=== PATIENT | male | born 1955 | race Caucasian/White ===

== ENCOUNTER 2018-01-19 09:42 | Emergency (ER) | payer OTHER ==
--- NOTE | 2018-01-19 11:03 | RAD REPORT ---
EXAM DESCRIPTION: VAS - Extremity Venous Uni Ltd - 01/19/2018 10:33 am CLINICAL HISTORY: Pain;Smash injury Leg swelling and edema. COMPARISON: EXT VENOUS UNI LTD dated 01/02/2015 FINDINGS: Right lower extremity venous system was interrogated with Doppler technique. Normal flow, compressibility and augmentation was noted. There is no DVT present.3.9 x 0.5 cm fluid collection not ed in the anterior right foot. IMPRESSION: No evidence of right lower extremity deep venous thrombosis.
--- NOTE | 2018-01-19 12:27 | RAD REPORT ---
EXAM DESCRIPTION: RAD - Foot Right 3 View - 01/19/2018 12:13 pm CLINICAL HISTORY: Smash injury;Pain COMPARISON: Foot Right 3 View dated 03/24/2013; Foot Right 3 View dated 02/19/2013 FINDINGS: Pes planus deformity is identified. Evidence of bony fusion between the talus and calcaneu s is seen. Moderate soft tissue swelling is seen along the dorsum of the forefoot without evidence of fracture.
--- NOTE | 2018-01-19 12:36 | EDPHYS ---
Physician Documentation [facility] Name: Hosea Manriquez Age: 62 yrs Sex: Male : 1955 Arrival Date: 01/19/2018 Time: 09:44 Bed 6 Private MD: Quentin Paz ED Physician Osvaldo Echols HPI: 01/19 17:14 This 62 yrs old Male presents to ER via Ambulatory with complaints of Foot kdr Injury. 17:16 The patient presents with a contusion, decreased range of motion, a deformity, an kdr injury, pain, that is acute, swelling, tenderness. The complaints affect the right foot. Context: The problem was sustained at home, resulted from a heavy object falling, Car battery about 12 inches. Onset: The symptoms/episode began/occurred acutely, yesterday. Modifying factors: The symptoms are alleviated by nothing, the symptoms are aggravated by weight bearing. Associated signs and symptoms: The patient has no apparent associated signs or symptoms. Severity of symptoms: At their worst the symptoms were mild, in the emergency department the symptoms are unchanged. The patient has not experienced similar symptoms in the past. The patient has not recently seen a physician. Historical: - Allergies: 09:48 Benadryl; sg 09:48 PENICILLINS; sg 09:48 Codeine; sg - PMHx: 09:52 Hypertension; Polio; High Cholesterol; sg - PSHx: 09:48 Knee surgery; foot surgery; sg - Immunization history:: Adult Immunizations up to date. - Social history:: Smoking status: Patient/guardian denies using tobacco. - Ebola Screening: : Patient negative for fever greater than or equal to 101.5 degrees Fahrenheit, and additional compatible Ebola Virus Disease symptoms Patient denies exposure to infectious person Patient denies travel to an Ebola-affected area in the 21 days before illness onset No symptoms or risks identified at this time. ROS: 17:16 MS/extremity: Positive for contusion, decreased range of motion, pain, swelling, kdr tenderness, warmth. 17:16 Constitutional: Negative for fever, chills, and weight loss, Eyes: Negative for injury, pain, redness, and discharge, Neck: Negative for injury, pain, and swelling. 17:16 MS/extremity: Positive for decreased range of motion, pain, swelling, tenderness, of the dorsum of right foot. Exam: 17:16 Constitutional: This is a well developed, well nourished patient who is awake, alert, kdr and in no acute distress. Head/Face: Normocephalic, atraumatic. Eyes: Pupils equal round and reactive to light, extra-ocular motions intact. Lids and lashes normal. Conjunctiva and sclera are non-icteric and not injected. Cornea within normal limits. Periorbital areas with no swelling, redness, or edema. 17:16 Musculoskeletal/extremity: Extremities: grossly normal except: noted in the dorsum of right foot: contusion, decreased ROM, pain, swelling, tenderness. Vital Signs: 09:51 BP 142 / 80; Pulse 80; Resp 17 S; Pulse Ox 98% on R/A; Weight 61.23 kg; Height 5 ft. 1 sg in. (154.94 cm); Pain 4/10; 09:51 Body Mass Index 25.51 (61.23 kg, 154.94 cm) sg MDM: 12:36 Patient medically screened. kdr 17:16 Data reviewed: vital signs, nurses notes, radiologic studies. Counseling: I had a kdr detailed discussion with the patient and/or guardian regarding: the historical points, exam findings, and any diagnostic results supporting the discharge/admit diagnosis, radiology results, the need for outpatient follow up. 01/19 09:57 Order name: XRAY Foot RIGHT 3 View; Complete Time: 12:35 sg 01/19 09:57 Order name: US Extremity Venous Unilateral Ltd; Complete Time: 11:10 sg Administered Medications: No medications were administered Disposition: 01/19/18 12:36 Discharged to Home. Impression: Pain in left foot, Pain in left ankle and joints of left foot. - Condition is Stable. - Discharge Instructions: Musculoskeletal Pain, Foot Contusion, [id number], Ankle Pain. - Medication Reconciliation Form, Thank You Letter form. - Follow up: Quentin Paz MD; When: 2 - 3 days; Reason: If symptoms return, Further diagnostic work-up, Recheck today's complaints, Continuance of care, Re-evaluation by your physician. - Problem is an ongoing problem. - Symptoms are unchanged. Signatures: Dispatcher [employer] EDMS Pito Romero RN RN sg Rittger, Osvaldo, MD MD kdr Mick, Chuy, RN RN ae1 Corrections: (The following items were deleted from the chart) 12:47 12:36 01/19/2018 12:36 Discharged to Home. Impression: Pain in left foot; Pain in left ae1 ankle and joints of left foot. Condition is Stable. Forms are Medication Reconciliation Form, Thank You Letter, Antibiotic Education, Prescription Opioid Use. Follow up: Quentin Paz; When: 2 - 3 days; Reason: If symptoms return, Further diagnostic work-up, Recheck today's complaints, Continuance of care, Re-evaluation by your physician. Problem is an ongoing problem. Symptoms are unchanged. kdr
--- NOTE | 2018-01-19 12:36 | ER ---
Nurse's Notes [facility] Name: Hosea Manriquez Age: 62 yrs Sex: Male : 1955 Arrival Date: 01/19/2018 Time: 09:44 Bed 6 Private MD: Quentin Paz Diagnosis: Pain in left foot;Pain in left ankle and joints of left foot Presentation: 01/19 09:48 Presenting complaint: Patient states: I dropped a car battery on the side R foot sg yesterday, then drove for 7 hrs straight to a job site. My right back leg and right calf have had some redness and swelling with a little pain now. Transition of care: patient was not received from another setting of care. Onset of symptoms was January 19, 2018. Risk Assessment: Do you want to hurt yourself or someone else? Patient reports no desire to harm self or others. Initial Sepsis Screen: Does the patient meet any 2 criteria? No. Patient's initial sepsis screen is negative. Does the patient have a suspected source of infection? No. Patient's initial sepsis screen is negative. Care prior to arrival: None. 09:48 Method Of Arrival: Ambulatory sg 09:48 Acuity: SABAS 3 sg Triage Assessment: 10:08 General: Appears in no apparent distress. comfortable, well groomed, well developed, sg well nourished, Behavior is calm, cooperative, appropriate for age. Pain: Complains of pain in right foot and right leg. Musculoskeletal: Circulation, motion, and sensation intact. Range of motion: intact in right knee and right ankle Swelling present in right foot and right leg. Historical: - Allergies: 09:48 Benadryl; sg 09:48 PENICILLINS; sg 09:48 Codeine; sg - PMHx: 09:52 Hypertension; Polio; High Cholesterol; sg - PSHx: 09:48 Knee surgery; foot surgery; sg - Immunization history:: Adult Immunizations up to date. - Social history:: Smoking status: Patient/guardian denies using tobacco. - Ebola Screening: : Patient negative for fever greater than or equal to 101.5 degrees Fahrenheit, and additional compatible Ebola Virus Disease symptoms Patient denies exposure to infectious person Patient denies travel to an Ebola-affected area in the 21 days before illness onset No symptoms or risks identified at this time. Screenin:59 Abuse screen: Denies threats or abuse. Nutritional screening: No deficits noted. ae1 Tuberculosis screening: No symptoms or risk factors identified. Fall Risk None identified. Assessment: 10:52 Reassessment: pt remains in radiology at this time. sg 11:15 Reassessment: Radiology at bedside obtaining imaging. General: Appears in no apparent ae1 distress. comfortable, Behavior is calm, cooperative. Pain: Complains of pain in dorsum of right foot. Neuro: Level of Consciousness is awake, alert, obeys commands, Oriented to person, place, time, situation. Cardiovascular: Patient's skin is warm and dry. Respiratory: Airway is patent Respiratory effort is even, unlabored, Respiratory pattern is regular, symmetrical. GI: No signs and/or symptoms were reported involving the gastrointestinal system. : No signs and/or symptoms were reported regarding the genitourinary system. EENT: wears glasses. . Derm: Derm: Skin is pink, warm \T\ dry. Musculoskeletal: Swelling present in dorsum of right foot mild redness. 11:58 Reassessment: Patient appears in no apparent distress at this time. Patient and/or ae1 family updated on plan of care and expected duration. Pain level reassessed. Vital Signs: 09:51 BP 142 / 80; Pulse 80; Resp 17 S; Pulse Ox 98% on R/A; Weight 61.23 kg; Height 5 ft. 1 sg in. (154.94 cm); Pain 4/10; 09:51 Body Mass Index 25.51 (61.23 kg, 154.94 cm) ED Course: 09:44 Patient arrived in ED. sb2 09:44 Quentin Paz MD is Private Physician. sb2 09:47 Arm band placed on. sg 09:47 Bed in low position. Call light in reach. Side rails up X2. newscast producer on. Pulse ae1 ox on. NIBP on. 09:51 Triage completed. sg 09:55 Osvaldo Echols MD is Attending Physician. kdr 10:33 US Extremity Venous Unilateral Ltd In Process Unspecified. EDMS 11:02 Chuy Barton, KIRA is Primary Nurse. ae1 12:13 XRAY Foot RIGHT 3 View In Process Unspecified. EDMS 12:35 Quentin Paz MD is Referral Physician. kdr Administered Medications: No medications were administered Outcome: 12:36 Discharge ordered by . kdr 12:47 Patient left the ED. ae1 Signatures: Dispatcher [employer] EDPito Olguin RN Osvaldo Vazquez MD MD kdr Elliott, Andrea, RN RN ae1 Janine Patten sb2
== END 2018-01-19 12:47 | disposition home or self-care (01) ==
LOC: ER 09:42
DX: M25.571 Pain in right ankle and joints of right foot (principal); I10 Essential (primary) hypertension; Z88.0 Allergy status to penicillin; Z88.5 Allergy status to narcotic agent; Z88.8 Allergy status to other drugs, medicaments and biological substances
CPT/HCPCS: 93971; 99284

== ENCOUNTER 2018-02-17 10:54 | Emergency (ER) | payer OTHER ==
--- NOTE | 2018-02-17 12:53 | RAD REPORT ---
EXAM DESCRIPTION: RAD - Knee Left 3 View - 02/17/2018 12:44 pm CLINICAL HISTORY: PAIN Fall COMPARISON: No comparisons FINDINGS: Oblique fracture through the proximal tibial metaphysis is seen. A lucent fracture compone nt is also seen extending in a vertical fashion to the tibial plateau. Small suprapatellar joint effu stephen is present. IMPRESSION: Proximal tibial fractures.
[2018-02-17 13:35] LABS: Absolute Monocytes 0.9 K/uL (0.1-1.3); Absolute Neutrophil 11.6 K/uL (1.8-8.0); Basophils % 0.3 % (0-1.3); Eosinophils % 0.3 % (0-4.4); Hematocrit 42.9 % (39.6-49.0); Lymphocytes % 7.3 % (15.3-44.8); MCH 29.7 pg (27.0-35.0); MCV 86.8 fL (80-100); MPV 8.1 fL (7.6-11.3); Monocytes % 6.8 % (3.3-12.3); RBC Red Blood Cell Count 4.94 M/uL (4.33-5.43)
[2018-02-17 13:46] LABS: Protime INR 0.96
--- NOTE | 2018-02-17 13:46 | RAD REPORT ---
EXAM DESCRIPTION: RAD - Chest Single View - 02/17/2018 1:40 pm CLINICAL HISTORY: preoperative Chest pain. Fall COMPARISON: CHEST PA AND LAT 2 VIEW dated 09/23/2013; CHEST SINGLE VIEW dated 08/20/2010 FINDINGS: Portable technique limits examination quality. The lungs are grossly clear. The heart is normal in size. No displaced fractures.Prominent scoliosis of the thoracic spine with concavity to the left. Hardware plate is present cervical spine. IMPRESSION: No acute intrathoracic process suspected.
[2018-02-17 13:55] LABS: ALT/SGPT 24 U/L (12-78); AST/SGOT 19 U/L (15-37); Albumin 3.8 g/dL (3.4-5.0); Alkaline Phosphatase 91 U/L (45-117); BUN Blood Urea Nitrogen 12 mg/dL (7-18); Bicarbonate 27 mmol/L (21-32); Bilirubin Total 0.7 mg/dL (0.2-1.0); Glucose Level 110 mg/dL (74-106); Potassium 3.3 mmol/L (3.5-5.1); Protein, Total 7.3 g/dL (6.4-8.2); Sodium Level 144 mmol/L (136-145)
--- NOTE | 2018-02-17 14:11 | RAD REPORT ---
EXAM DESCRIPTION: CT - Tib Fib Left Wo Con - 02/17/2018 1:59 pm CLINICAL HISTORY: Pain swelling Trauma, fall COMPARISON: Knee Left 3 View dated 02/17/2018 FINDINGS: An oblique fracture of the proximal tibial metaphysis is identified with very little displ acement. The fracture anteriorly traverses lateral to medial to the level of the medial tibial metaph ysis. More anteriorly, a component of the fracture is seen to extend in a horizontal fashion to the t ibial plateau centrally. The bones are osteopenic. A small to moderate joint effusion is present. A dislocation is not evident . IMPRESSION: Obliquely oriented fracture of the proximal tibia as detailed with intraarticular extens ion to the tibial plateau seen.
--- NOTE | 2018-02-17 15:04 | EDPHYS ---
Physician Documentation [facility] Name: Hosea Manriquez Age: 63 yrs Sex: Male : 1955 Arrival Date: 02/17/2018 Time: 10:56 Bed 19 Private MD: Quentin Paz ED Physician Dirk Rossi HPI: 02/17 11:32 This 63 yrs old Male presents to ER via Wheelchair with complaints of Knee pm1 Pain - LEFT. 11:32 The patient presents with pain, swelling. The complaints affect the left knee. Context: pm1 The problem was sustained at home, resulted from the patient falling, the patient can fully bear weight, the patient is able to ambulate, uses a brace due to hx of polio. Onset: The symptoms/episode began/occurred this morning. Modifying factors: The symptoms are alleviated by resting, pain level 3/10. the symptoms are aggravated by weight bearing, pain 10/10. Associated signs and symptoms: Pertinent negatives calf tenderness, fever, numbness, tingling. Severity of symptoms: in the emergency department the symptoms are actually worse. Patient with history of polio and wears brace to left leg. Patient got up this AM to go to the restroom and did not use his brace. Patient fell on his left knee. No headache, head injury, neck pain, LOC. Historical: - Allergies: 11:21 PENICILLINS; aj1 11:21 Benadryl; aj1 11:21 Codeine; aj1 - Home Meds: 11:21 Lisinopril Oral [Active]; amlodipine oral [Active]; cholesterol medication [Active]; aj1 - PMHx: 11:21 High Cholesterol; Hypertension; Polio; chronic headaches; aj1 - PSHx: 11:21 Knee surgery; foot surgery; aj1 - Immunization history:: Flu vaccine is up to date. - Social history:: Smoking status: Patient/guardian denies using tobacco. - Ebola Screening: : Patient denies travel to an Ebola-affected area in the 21 days before illness onset. ROS: 11:32 Constitutional: Negative for fever, chills, and weight loss, Eyes: Negative for injury, pm1 pain, redness, and discharge, ENT: Negative for injury, pain, and discharge, Neck: Negative for injury, pain, and swelling, Cardiovascular: Negative for chest pain, palpitations, and edema, Respiratory: Negative for shortness of breath, cough, wheezing, and pleuritic chest pain, Abdomen/GI: Negative for abdominal pain, nausea, vomiting, diarrhea, and constipation, Back: Negative for injury and pain. 11:32 Skin: Negative for injury, rash, and discoloration, Neuro: Negative for headache, weakness, numbness, tingling, and seizure. 11:32 MS/extremity: Positive for pain, swelling, of the left knee, Negative for paresthesias, tingling. Exam: 11:35 Constitutional: This is a well developed, well nourished patient who is awake, alert, pm1 and in no acute distress. Head/Face: Normocephalic, atraumatic. Eyes: Pupils equal round and reactive to light, extra-ocular motions intact. Lids and lashes normal. Conjunctiva and sclera are non-icteric and not injected. Cornea within normal limits. Periorbital areas with no swelling, redness, or edema. ENT: Nares patent. No nasal discharge, no septal abnormalities noted. Tympanic membranes are normal and external auditory canals are clear. Oropharynx with no redness, swelling, or masses, exudates, or evidence of obstruction, uvula midline. Mucous membranes moist. Neck: Trachea midline, no thyromegaly or masses palpated, and no cervical lymphadenopathy. Supple, full range of motion without nuchal rigidity, or vertebral point tenderness. No Meningismus. Chest/axilla: Normal chest wall appearance and motion. Nontender with no deformity. No lesions are appreciated. Cardiovascular: Regular rate and rhythm with a normal S1 and S2. No gallops, murmurs, or rubs. Normal PMI, no JVD. No pulse deficits. Respiratory: Lungs have equal breath sounds bilaterally, clear to auscultation and percussion. No rales, rhonchi or wheezes noted. No increased work of breathing, no retractions or nasal flaring. Abdomen/GI: Soft, non-tender, with normal bowel sounds. No distension or tympany. No guarding or rebound. No evidence of tenderness throughout. Back: No spinal tenderness. No costovertebral tenderness. Full range of motion. Skin: Warm, dry with normal turgor. Normal color with no rashes, no lesions, and no evidence of cellulitis. 11:35 Musculoskeletal/extremity: Extremities: grossly normal except: noted in the Left lower leg just below knee: swelling, tenderness, Pulses: are normal with no appreciated deficits, noted to be 2+ in the left dorsalis pedis artery, Calf tenderness, is absent, the left foot Sensation intact. 11:35 Neuro: Orientation: is normal, Motor: moves all fours, Sensation: is normal, no obvious gross deficits. Vital Signs: 11:21 BP 132 / 84; Pulse 70; Resp 18; Temp 98.0; Pulse Ox 97% on R/A; Weight 62.6 kg (R); aj1 Height 5 ft. 0 in. (152.40 cm) (R); Pain 3/10; 12:46 BP 139 / 89; Pulse 68; Resp 17; Pulse Ox 99% on R/A; Pain 1/10; em 13:30 BP 150 / 67; Pulse 62; Resp 18; Pulse Ox 98% on R/A; aj1 14:30 BP 158 / 86; Pulse 72; Resp 16; Pulse Ox 97% on R/A; aj1 15:50 BP 138 / 84; Pulse 74; Resp 16; Pulse Ox 99% on R/A; Pain 0/10; aj1 17:02 BP 149 / 86; Pulse 71; Resp 17; Pulse Ox 97% on R/A; Pain 0/10; em 11:21 Body Mass Index 26.95 (62.60 kg, 152.40 cm) aj1 Procedures: 14:55 Splinting: Splint applied to left leg using Orthoglass splint, applied by nurse. pm1 Examined by me, post splint application: neurovascular intact, 2+ distal pulses palpable, brisk capillary refill noted, Patient tolerated well, Posterior long leg splint. MDM: 11:24 Patient medically screened. pm1 12:08 Data reviewed: vital signs. Data interpreted: Pulse oximetry: on room air is 97 %. pm1 Interpretation: normal. 12:08 ED course: Patient refused pain medications offered in ER. pm1 14:30 Physician consultation: Cj Herring MD was called at 14:29, was contacted at 14:38, pm1 regarding consult, patient's condition, after a discussion of the case, a recommendation for transfer for higher level of care is made, Request transfer to a trauma center. 15:01 Counseling: I had a detailed discussion with the patient and/or guardian regarding: the pm1 historical points, exam findings, and any diagnostic results supporting the discharge/admit diagnosis, lab results, radiology results, the need to transfer to another facility, for higher level of care. 15:29 Physician consultation: Du CampbellSyed was contacted at 15:30, regarding regarding transfer, pm1 patient's condition, and will see patient in ED. 16:59 ED course: Patient refused pain medications in the ER. Patient refused pain medications pm1 for transfer. Patient reports that his left leg does not hurt if he positions it in a manner that it does not hurt. 02/17 12:53 Order name: CBC with Diff; Complete Time: 15:48 pm1 02/17 12:53 Order name: CMP; Complete Time: 14:14 pm1 02/17 11:31 Order name: Knee Left 3 View XRAY; Complete Time: 14:14 pm1 02/17 12:53 Order name: PT-INR; Complete Time: 14:14 pm1 02/17 12:53 Order name: Ptt, Activated; Complete Time: 14:14 pm1 02/17 13:37 Order name: CBC Smear Scan; Complete Time: 15:48 EDMS 02/17 12:37 Order name: Posterior Leg Splint; Complete Time: 14:55 pm1 02/17 12:43 Order name: Tib Fib Left Wo Con; Complete Time: 14:14 EDMS 02/17 12:53 Order name: IV Saline Lock; Complete Time: 13:30 pm1 02/17 12:53 Order name: Chest Single View XRAY; Complete Time: 14:14 pm1 02/17 12:53 Order name: EKG; Complete Time: 12:54 pm1 02/17 12:53 Order name: EKG - Nurse/Tech; Complete Time: 14:09 pm1 Administered Medications: 17:00 Not Given (Patient Refused): fentaNYL (PF) 25 mcg IVP once em Disposition: 17:48 Co-signature as Attending Physician, Dirk Rossi MD. rn Disposition: 02/17/18 15:03 Transfer ordered to [facility]. Diagnosis is Left comminuted tibial plateau fracture. - Reason for transfer: Higher level of care. - Accepting physician is [facility]. - Condition is Stable. - Problem is new. - Symptoms have improved. Signatures: Dispatcher [employer] EDWI Anyi Benites RN RN aj1 Jun Espinoza, ACCORDION REPAIRER ACCORDION REPAIRER em Dirk Rossi MD MD rn Marinas, Patrick, NURSING CLERK NURSING CLERK pm1 Corrections: (The following items were deleted from the chart) 12:57 12:38 Knee Left Wo Con ordered. EDWI EDWI 17:03 15:03 02/17/2018 15:03 Transfer ordered to [facility]. em Diagnosis is Left comminuted tibial plateau fracture. Reason for transfer: Higher level of care. Accepting physician is [facility]. Condition is Stable. Problem is new. Symptoms have improved. pm1
--- NOTE | 2018-02-17 15:04 | ER ---
Nurse's Notes [facility] Name: Hosea Manriquez Age: 63 yrs Sex: Male : 1955 Arrival Date: 02/17/2018 Time: 10:56 Bed 19 Private MD: Quentin Paz Diagnosis: Left comminuted tibial plateau fracture Presentation: 02/17 11:15 Presenting complaint: Patient states: "I wear a brace all the time, I went to the [facility] restroom this morning without it and I fell. Now I have a goose egg on the side the side of my left knee. I tried to walk it off, but I couldn't so I came to make sure I didn't break it." Reports pain and swelling to left knee, Full AROM to left knee, patient is unable to bear weight on left leg. Transition of care: patient was not received from another setting of care. Onset of symptoms was February 17, 2018. Risk Assessment: Do you want to hurt yourself or someone else? Patient reports no desire to harm self or others. Initial Sepsis Screen: Does the patient meet any 2 criteria? No. Patient's initial sepsis screen is negative. Does the patient have a suspected source of infection? No. Patient's initial sepsis screen is negative. Care prior to arrival: None. 11:15 Method Of Arrival: Wheelchair [facility] 11:15 Acuity: SABAS 4 [facility] Triage Assessment: 11:21 General: Appears in no apparent distress. uncomfortable, Behavior is calm, cooperative, aj1 appropriate for age. Pain: Complains of pain in lateral aspect of left knee Pain currently is 3 out of 10 on a pain scale. at worst was 10 out of 10 on a pain scale. Neuro: Level of Consciousness is awake, alert, obeys commands. Cardiovascular: Patient's skin is warm and dry. Respiratory: Airway is patent Respiratory effort is even, unlabored, Respiratory pattern is regular, symmetrical. Historical: - Allergies: 11:21 PENICILLINS; aj1 11:21 Benadryl; aj1 11:21 Codeine; aj1 - Home Meds: 11:21 Lisinopril Oral [Active]; amlodipine oral [Active]; cholesterol medication [Active]; aj1 - PMHx: 11:21 High Cholesterol; Hypertension; Polio; chronic headaches; aj1 - PSHx: 11:21 Knee surgery; foot surgery; aj1 - Immunization history:: Flu vaccine is up to date. - Social history:: Smoking status: Patient/guardian denies using tobacco. - Ebola Screening: : Patient denies travel to an Ebola-affected area in the 21 days before illness onset. Screenin:47 Abuse screen: Denies threats or abuse. Nutritional screening: No deficits noted. em Tuberculosis screening: No symptoms or risk factors identified. Fall Risk Fall in past 12 months (25 points). Secondary diagnosis (15 points) impaired mobility, polio . Ambulatory Aid- Crutches/Cane/Walker (15 pts). Total Tracey Fall Scale indicates High Risk Score (45 or more points). Fall prevention measures have been instituted. Side Rails Up X 2 Placed Close to Nursing Station Family Present and informed to notify staff if the need to leave the bedside. Assessment: 11:40 General: Appears in no apparent distress. distressed, Behavior is calm, cooperative, em Reports reports slipping and falling and hurt his left knee, hx of polio, uses walker. Pain: Complains of pain in left knee. Neuro: Level of Consciousness is awake, alert, obeys commands, Oriented to person, place, time, situation. Cardiovascular: Capillary refill < 3 seconds Patient's skin is warm and dry. Respiratory: Airway is patent Respiratory effort is even, unlabored, Respiratory pattern is regular, symmetrical. GI: Abdomen is flat. : No signs and/or symptoms were reported regarding the genitourinary system. EENT: No signs and/or symptoms were reported regarding the EENT system. Derm: Skin is intact. Musculoskeletal: Range of motion: limited in left hip and left knee Swelling present in left knee. Injury Description: trip injury. 11:42 Reassessment: I agree with previous assessment. hb 12:40 Reassessment: Patient appears in no apparent distress at this time. Patient and/or em family updated on plan of care and expected duration. Pain level reassessed. Patient is alert, oriented x 3, equal unlabored respirations, skin warm/dry/pink. 13:23 Reassessment: Patient appears in no apparent distress at this time. Patient and/or em family updated on plan of care and expected duration. Pain level reassessed. Patient is alert, oriented x 3, equal unlabored respirations, skin warm/dry/pink. pt currently denying pain medication, will try to go through while the splint is getting put on, MIR Harry notified. 14:20 Reassessment: Patient appears in no apparent distress at this time. Patient and/or em family updated on plan of care and expected duration. Pain level reassessed. Patient is alert, oriented x 3, equal unlabored respirations, skin warm/dry/pink. 15:49 Reassessment: Patient appears in no apparent distress at this time. Patient and/or aj1 family updated on plan of care and expected duration. Pain level reassessed. Patient is alert, oriented x 3, equal unlabored respirations, skin warm/dry/pink. Patient states feeling better. 16:30 Reassessment: Patient appears in no apparent distress at this time. Patient and/or em family updated on plan of care and expected duration. Pain level reassessed. Patient is alert, oriented x 3, equal unlabored respirations, skin warm/dry/pink. pt refused pain medication through the entire visit, MIR Harry notified. 17:01 Reassessment: report given to [facility]. em Vital Signs: 11:21 BP 132 / 84; Pulse 70; Resp 18; Temp 98.0; Pulse Ox 97% on R/A; Weight 62.6 kg (R); aj1 Height 5 ft. 0 in. (152.40 cm) (R); Pain 3/10; 12:46 BP 139 / 89; Pulse 68; Resp 17; Pulse Ox 99% on R/A; Pain 1/10; em 13:30 BP 150 / 67; Pulse 62; Resp 18; Pulse Ox 98% on R/A; aj1 14:30 BP 158 / 86; Pulse 72; Resp 16; Pulse Ox 97% on R/A; aj1 15:50 BP 138 / 84; Pulse 74; Resp 16; Pulse Ox 99% on R/A; Pain 0/10; aj1 17:02 BP 149 / 86; Pulse 71; Resp 17; Pulse Ox 97% on R/A; Pain 0/10; em 11:21 Body Mass Index 26.95 (62.60 kg, 152.40 cm) [facility] ED Course: 10:56 Patient arrived in ED. sb2 10:57 Quentin Paz MD is Private Physician. sb2 11:19 Triage completed. aj1 11:21 Arm band placed on Patient placed in an exam room. aj1 11:23 Piero Veras NP is PHCP. pm1 11:23 Dirk Rossi MD is Attending Physician. pm1 11:40 Patient has correct armband on for positive identification. Bed in low position. Call em light in reach. Adult w/ patient. 12:43 X-ray completed. Portable x-ray completed in exam room. Patient tolerated procedure ml well. 12:44 Knee Left 3 View XRAY In Process Unspecified. EDMS 12:47 Jun Espinoza LVN is Primary Nurse. em 13:29 Initial lab(s) drawn, by me, sent to lab. Inserted saline lock: 20 gauge in left dh3 antecubital area, using aseptic technique. Blood collected. 13:40 Chest Single View XRAY In Process Unspecified. EDMS 13:58 CT completed. Patient moved to CT via stretcher. Patient moved back from CT. cw1 13:59 Tib Fib Left Wo Con In Process Unspecified. EDMS 14:50 Orthoglass splint: Posterior long leg splint applied on left leg. capillary refill less dh3 than 3 seconds. 14:53 No provider procedures requiring assistance completed. em 15:00 called and initiated a transfer with Chelsi at the [facility]. eb 16:02 [id number] administrative approval given by Lurdes Perez/ Dr. Downs, accepted the patient in eb transfer. pt is to go to the er at [facility]/ report to be called to [phone]. 17:01 Patient transferred, IV remains in place. em Administered Medications: 17:00 Not Given (Patient Refused): fentaNYL (PF) 25 mcg IVP once em Outcome: 15:03 ER care complete, transfer ordered by . pm1 17:01 Transferred by ground EMS to [facility], Transfer form completed. X-rays sent em w/ patient. 17:01 Condition: good 17:01 Instructed on the need for transfer, Demonstrated understanding of instructions. 17:03 Patient left the ED. em Signatures: Dispatcher [employer] EDMS Anyi Benites RN RN aj1 Jun Espinoza LVN DINKEY OPERATOR em Mago Castillo Crystal cw1 Piero Veras NP HOSIERY BAGGER pm1 Veronica Roman, RN RN hb Julia Stewart dh3 Janine Patten sb2 Trinidad Willis
[2018-02-17 15:43] LABS: Blood Morphology Comment NOT SEEN (NOT SEEN); Platelet Estimate ADEQ; Urine White Blood Cell Casts OK
--- NOTE | 2018-02-17 16:37 | EKG ---
Test Date: 2018-02-17 Test Time: 13:32:06 Benefits Coordinator: BRANDON MEASUREMENT RESULTS: Intervals: Rate: 66 MA: 146 QRSD: 102 QT: 398 QTc: 417 [place]: P: 72 MA: 146 QRS: 31 T: 35 INTERPRETIVE STATEMENTS: Normal sinus rhythm Normal ECG Compared to ECG 08/21/2010 06:26:10 Sinus bradycardia no longer present Electronically Signed On 02-17-18 16:36:51 CDT by Quentin Yepez
== END 2018-02-17 17:03 | disposition short-term general hospital (02) ==
LOC: ER 10:54
PROC: 2W3MX1Z Immobilization of Left Lower Extremity using Splint (ICD-10-PCS; principal; 2018-02-17)
DX: S82.142A Displaced bicondylar fracture of left tibia, initial encounter for closed fracture (principal); W01.0XXA Fall on same level from slipping, tripping and stumbling without subsequent striking against object, initial encounter; Y93.01 Activity, walking, marching and hiking; Y92.018 Other place in single-family (private) house as the place of occurrence of the external cause; Z88.6 Allergy status to analgesic agent; Z88.5 Allergy status to narcotic agent; Z88.0 Allergy status to penicillin; E78.00 Pure hypercholesterolemia, unspecified; I10 Essential (primary) hypertension; A80.9 Acute poliomyelitis, unspecified
CPT/HCPCS: 36415; 71045; 73700; 80053; 85025; 85610; 85730; 93005; 99285

== ENCOUNTER 2018-03-02 17:52 | Emergency (ER) | payer OTHER ==
[2018-03-02] MEDS ORDERED: NA CHLORIDE 0.9% 500 ML ONE (20:50)
[2018-03-02 21:12] LABS: Absolute Lymphocytes (CBC) 2.2 K/uL (0.7-4.9); Absolute Neutrophil 6.1 K/uL (1.8-8.0); Basophils % 1.4 % (0-1.3); Eosinophils % 1.7 % (0-4.4); Hematocrit 42.3 % (39.6-49.0); Lymphocytes % 23.4 % (15.3-44.8); MCH 29.5 pg (27.0-35.0); MCV 87.1 fL (80-100); MPV 7.6 fL (7.6-11.3); Monocytes % 10.3 % (3.3-12.3); RBC Red Blood Cell Count 4.85 M/uL (4.33-5.43)
[2018-03-02 21:23] LABS: BUN Blood Urea Nitrogen 13 mg/dL (7-18); Bicarbonate 32 mmol/L (21-32); Glucose Level 92 mg/dL (74-106); Potassium 3.8 mmol/L (3.5-5.1); Sodium Level 137 mmol/L (136-145)
[2018-03-02 21:32] LABS: Urine Blood NEGATIVE (NEG); Urine Glucose NEGATIVE (NEG); Urine Protein NEGATIVE (NEG)
--- NOTE | 2018-03-02 21:37 | RAD REPORT ---
EXAM DESCRIPTION: RAD - Tib Fib Left - 03/02/2018 8:45 pm CLINICAL HISTORY: SWELLING Pain COMPARISON: Tib Fib Left Wo Con dated 02/17/2018 FINDINGS: Lateral tibial sideplate with multiple screws is noted. No unusual hardware finding. Fract ure lucency in the proximal tibia remains present. Soft tissue swelling is seen about the leg.
[2018-03-02] MEDS ORDERED: CLINDAMYCIN 600MG/D5W 600 MG/50 ML BAG IV ONE (21:42)
[2018-03-02 21:47] LABS: Platelet Estimate ADEQ; Urine White Blood Cell Casts OK
[2018-03-02 21:48] LABS: Blood Morphology Comment NOT SEEN (NOT SEEN)
[2018-03-02] MEDS ORDERED: SMZ./TMP. 800/160 MG TABLET ONE (22:16)
--- NOTE | 2018-03-02 23:18 | ER ---
Nurse's Notes [facility] Name: Hosea Manriquez Age: 63 yrs Sex: Male : 1955 Arrival Date: 03/02/2018 Time: 17:54 Bed 6 Private MD: Quentin Paz Diagnosis: Cellulitis of left lower limb-Post ORIF of Tibia Presentation: 03/02 18:00 Presenting complaint: Patient states: left leg surgery done in [place] after having 3 sv fractures after a fall. Pt now has left leg infection that he noticed 2 days ago. Denies fever/chills. Transition of care: patient was not received from another setting of care. Onset of symptoms was February 28, 2018. Care prior to arrival: None. 18:00 Method Of Arrival: Wheelchair sv 18:00 Acuity: SABAS 3 sv Triage Assessment: 18:00 General: Appears in no apparent distress. comfortable, Behavior is calm, cooperative, sv appropriate for age. Pain: Complains of pain in left leg Pain currently is 4 out of 10 on a pain scale. Neuro: Level of Consciousness is awake, alert, obeys commands, Oriented to person, place, time, situation. Respiratory: Respiratory effort is even, unlabored, Respiratory pattern is regular, symmetrical. Derm: Skin is normal, Reports wound to the left leg. Historical: - Allergies: 18:03 Benadryl; sv 18:03 Codeine; sv 18:03 PENICILLINS; sv - Home Meds: 18:03 gabapentin oral oral [Active]; Lovenox 40 mg/0.4 mL Sub-Q syrg once daily [Active]; sv Tramadol Oral [Active]; Vitamin D3 oral oral [Active]; 18:04 amlodipine oral [Active]; lisinopril Oral [Active]; atorvastatin oral oral [Active]; BC sv powder [Active]; - PMHx: 18:03 Chronic headaches; High Cholesterol; Hypertension; Polio; sv - PSHx: 18:03 Knee surgery; foot surgery; sv - Immunization history:: Adult Immunizations up to date. - Social history:: Smoking status: Patient/guardian denies using tobacco. - Ebola Screening: : No symptoms or risks identified at this time. Screenin:25 Abuse screen: Denies threats or abuse. Denies injuries from another. Nutritional aa1 screening: No deficits noted. Tuberculosis screening: No symptoms or risk factors identified. Fall Risk. Assessment: 20:25 General: Appears in no apparent distress. comfortable, slender, Behavior is calm, aa1 cooperative, appropriate for age. Pain: Complains of pain in left leg Pain currently is 4 out of 10 on a pain scale. Neuro: Level of Consciousness is awake, alert, obeys commands, Oriented to person, place, time, situation. Respiratory: Airway is patent Respiratory effort is even, unlabored, Respiratory pattern is regular, symmetrical. GI: No signs and/or symptoms were reported involving the gastrointestinal system. : No signs and/or symptoms were reported regarding the genitourinary system. EENT: No signs and/or symptoms were reported regarding the EENT system. Derm: Skin is intact, is healthy with good turgor, Skin is pink, warm \T\ dry. Wound noted lateral aspect of left calf and left nunez Wound is surgical incision that appears to be in healing stages with sutures intact. Mild redness noted around suture sites with no drainage noted. Musculoskeletal: Capillary refill < 3 seconds. 21:09 Reassessment: Patient appears in no apparent distress at this time. Patient and/or aa1 family updated on plan of care and expected duration. Pain level reassessed. Patient is alert, oriented x 3, equal unlabored respirations, skin warm/dry/pink. Awaiting lab results. 22:07 Reassessment: Patient appears in no apparent distress at this time. Patient and/or aa1 family updated on plan of care and expected duration. Pain level reassessed. Patient is alert, oriented x 3, equal unlabored respirations, skin warm/dry/pink. IV clindamycin infusing. 23:00 Reassessment: Patient appears in no apparent distress at this time. Patient and/or aa1 family updated on plan of care and expected duration. Pain level reassessed. Patient is alert, oriented x 3, equal unlabored respirations, skin warm/dry/pink. Awaiting provider reassessment. 23:26 Reassessment: Patient appears in no apparent distress at this time. Patient is alert, aa1 oriented x 3, equal unlabored respirations, skin warm/dry/pink. Discussed d/c \T\ f/u instructions with pt; denies questions or concerns at this time. Vital Signs: 18:04 BP 137 / 85; Pulse 93; Resp 18; Temp 98.2; Pulse Ox 97% ; Weight 62.6 kg; Height 5 ft. sv 1 in. (154.94 cm); Pain 4/10; 21:09 BP 155 / 85; Pulse 69; Resp 18; Pulse Ox 96% on R/A; aa1 22:05 BP 128 / 85; Pulse 67; Resp 18; Pulse Ox 99% on R/A; aa1 23:26 BP 140 / 87; Pulse 66; Resp 16; Pulse Ox 98% on R/A; Pain 2/10; aa1 18:04 Body Mass Index 26.08 (62.60 kg, 154.94 cm) sv ED Course: 17:54 Patient arrived in ED. sb2 17:54 Quentni Paz MD is Private Physician. sb2 18:02 Triage completed. sv 18:04 Arm band placed on left wrist. sv 20:10 Kang Handy PA is PHCP. cp 20:10 Kang Ayala MD is Attending Physician. cp 20:20 Patient has correct armband on for positive identification. Bed in low position. Call aa1 light in reach. Pulse ox on. NIBP on. 20:33 Catherine Michaud, RN is Primary Nurse. aa1 20:39 Urine collected: clean catch specimen, yudi colored. aa1 20:45 XRAY Tib Fib LEFT In Process Unspecified. EDMS 20:45 X-ray completed. Portable x-ray completed in exam room. Patient tolerated procedure sw well. 20:55 First set of blood cultures drawn by ED staff. Initial lab(s) drawn, by ED staff, sent aa1 to lab. Inserted saline lock: 20 gauge in left antecubital area, using aseptic technique. ,using aseptic technique. by denita Collado Blood collected. 21:20 Second set of blood cultures drawn by ED staff. aa1 23:20 Dressings: Stockinette X 1; left leg 4X4s X 1; left leg Arnoldo wrap x 1. aa1 23:26 No provider procedures requiring assistance completed. IV discontinued, intact, aa1 bleeding controlled, No redness/swelling at site. Pressure dressing applied. Administered Medications: 21:03 Drug: NS 0.9% 500 ml Route: IV; Rate: bolus; Site: left antecubital; aa1 21:44 Follow up: IV Status: Completed infusion aa1 21:44 Drug: Clindamycin 600 mg Route: IVPB; Infused Over: 30 mins; Site: left antecubital; aa1 22:14 Follow up: IV Status: Completed infusion aa1 22:14 Drug: Bactrim (160 mg-800 mg (DS) 1 tablet Route: PO; aa1 23:26 Follow up: Response: No adverse reaction aa1 Outcome: 23:17 Discharge ordered by . harshad 23:30 Discharged to home via wheelchair, with family. aa1 23:30 Condition: good 23:30 Discharge instructions given to patient, family, Instructed on discharge instructions, follow up and referral plans. medication usage, wound care, Demonstrated understanding of instructions, follow-up care, medications, wound care, Prescriptions given X 2. 23:30 Patient left the ED. aa1 Signatures: Dispatcher [employer] Jasmin Andrea RN RN sv Kern, Alissa, RN RN aa1 Ladi Diaz Corey, PA PA cp Billeau, Sheri sb2
--- NOTE | 2018-03-02 23:18 | EDPHYS ---
Physician Documentation [facility] Name: Hosea Manriquez Age: 63 yrs Sex: Male : 1955 Arrival Date: 03/02/2018 Time: 17:54 Bed 6 Private MD: Quentin Paz ED Physician Kang Ayala HPI: 03/02 20:29 This 63 yrs old Male presents to ER via Wheelchair with complaints of Wound cp Infection. 20:29 The patient presents with erythema. cp 20:29 The complaints affect the left lower leg. cp 20:29 Onset: The symptoms/episode began/occurred 2 day(s) ago. Associated signs and symptoms: cp Pertinent negatives fever, drainage. Patient reports noticing redness and swelling around sutures 2 days ago. History of ORIF to left tibia about 2 weeks. 20:29 Treatment prior to arrival includes: no previous treatment. cp Historical: - Allergies: 18:03 Benadryl; sv 18:03 Codeine; sv 18:03 PENICILLINS; sv - Home Meds: 18:03 gabapentin oral oral [Active]; Lovenox 40 mg/0.4 mL Sub-Q syrg once daily [Active]; sv Tramadol Oral [Active]; Vitamin D3 oral oral [Active]; 18:04 amlodipine oral [Active]; lisinopril Oral [Active]; atorvastatin oral oral [Active]; BC sv powder [Active]; - PMHx: 18:03 Chronic headaches; High Cholesterol; Hypertension; Polio; sv - PSHx: 18:03 Knee surgery; foot surgery; sv - Immunization history:: Adult Immunizations up to date. - Social history:: Smoking status: Patient/guardian denies using tobacco. - Ebola Screening: : No symptoms or risks identified at this time. ROS: 20:35 Constitutional: Negative for body aches, chills, fever, poor PO intake. cp 20:35 Eyes: Negative for injury, pain, redness, and discharge. cp 20:35 Cardiovascular: Negative for chest pain, edema. 20:35 Respiratory: Negative for cough, shortness of breath, wheezing. 20:35 Abdomen/GI: Negative for abdominal pain, nausea, vomiting, and diarrhea, constipation. 20:35 Back: Negative for pain at rest, pain with movement, radiated pain. 20:35 Skin: Positive for erythema, of the left lower leg. 20:35 All other systems are negative. Exam: 20:42 Constitutional: The patient appears in no acute distress, alert, awake, non-toxic, well cp developed, well nourished. 20:42 Head/Face: Normocephalic, atraumatic. cp 20:42 Eyes: Periorbital structures: appear normal, Conjunctiva: normal, no exudate, no injection, Sclera: no appreciated abnormality, Lids and lashes: appear normal, bilaterally. 20:42 ENT: External ear(s): are unremarkable, Nose: is normal, Mouth: Lips: moist, Oral mucosa: moist, Posterior pharynx: is normal, airway is patent, no erythema, no exudate. 20:42 Neck: ROM/movement: is normal, is supple, without pain, no range of motions limitations, no nuchal rigidity. 20:42 Chest/axilla: Inspection: normal, Palpation: is normal, no crepitus, no tenderness. 20:42 Cardiovascular: Rate: normal, Rhythm: regular. 20:42 Respiratory: the patient does not display signs of respiratory distress, Respirations: normal, no use of accessory muscles, no retractions, no splinting, no tachypnea, labored breathing, is not present, Breath sounds: are clear throughout, no decreased breath sounds, no stridor, no wheezing. 20:42 Abdomen/GI: Inspection: abdomen appears normal, Palpation: abdomen is soft and non-tender, in all quadrants. 20:42 Skin: noted several areas of suturing to left lower leg with mild surrounding erythema and swelling. no drainage expressed. Vital Signs: 18:04 BP 137 / 85; Pulse 93; Resp 18; Temp 98.2; Pulse Ox 97% ; Weight 62.6 kg; Height 5 ft. sv 1 in. (154.94 cm); Pain 4/10; 21:09 BP 155 / 85; Pulse 69; Resp 18; Pulse Ox 96% on R/A; aa1 22:05 BP 128 / 85; Pulse 67; Resp 18; Pulse Ox 99% on R/A; aa1 23:26 BP 140 / 87; Pulse 66; Resp 16; Pulse Ox 98% on R/A; Pain 2/10; aa1 18:04 Body Mass Index 26.08 (62.60 kg, 154.94 cm) sv MDM: 20:11 Patient medically screened. carmenza 21:00 Differential diagnosis: sepsis, cellulitis, abscess. cp 22:00 Data reviewed: vital signs, nurses notes, lab test result(s), radiologic studies, plain cp films. 22:00 Test interpretation: by ED physician or midlevel provider: plain radiologic studies. cp Counseling: I had a detailed discussion with the patient and/or guardian regarding: the historical points, exam findings, and any diagnostic results supporting the discharge/admit diagnosis, lab results, radiology results. 22:40 ED course: VSS. Left msg with answering service of DR Downs. cp 23:45 ED course: VSS. Spoke with DR Reyna, oncall physician for DR Downs, concerning findings cp of exam and labs. Patient has left the ED prior to consultation. Will have patient f/u in clinic next week. 03/02 20:23 Order name: CBC with Diff; Complete Time: 21:58 cp 03/02 21:59 Interpretation: WBC 9.6; PLT 615; BASO% 1.4; Reviewed. 03/02 20:23 Order name: BMP; Complete Time: 21:58 cp 03/02 20:23 Order name: Blood Culture Adult (2) cp 03/02 20:24 Order name: XRAY Tib Fib LEFT; Complete Time: 21:58 cp 03/02 20:56 Order name: Urine Dipstick--Ancillary (enter results); Complete Time: 21:58 mw2 03/02 21:14 Order name: CBC Smear Scan; Complete Time: 21:58 EDMS 03/02 20:23 Order name: Urine Dipstick-Ancillary (obtain specimen); Complete Time: 20:48 cp 03/02 20:23 Order name: IV; Complete Time: 21:03 cp 03/02 21:08 Order name: Misc. Order: outline erythema; Complete Time: 21:44 cp Administered Medications: 21:03 Drug: NS 0.9% 500 ml Route: IV; Rate: bolus; Site: left antecubital; aa1 21:44 Follow up: IV Status: Completed infusion aa1 21:44 Drug: Clindamycin 600 mg Route: IVPB; Infused Over: 30 mins; Site: left antecubital; aa1 22:14 Follow up: IV Status: Completed infusion aa1 22:14 Drug: Bactrim (160 mg-800 mg (DS) 1 tablet Route: PO; aa1 23:26 Follow up: Response: No adverse reaction aa1 Disposition: 03/02/18 23:17 Discharged to Home. Impression: Cellulitis of left lower limb - Post ORIF of Tibia. - Condition is Stable. - Discharge Instructions: Cellulitis, Adult. - Prescriptions for Clindamycin HCl 300 mg Oral Capsule - take 1 capsule by ORAL route every 6 hours for 10 days; 40 capsule. Bactrim DS 800- 160 mg Oral Tablet - take 1 tablet by ORAL route every 12 hours for 10 days; 20 tablet. - Medication Reconciliation Form, Thank You Letter, Antibiotic Education, Prescription Opioid Use form. - Follow up: Private Physician; When: DR Downs next 2-3 days for wound check; Reason: Wound Recheck. - Problem is new. - Symptoms are unchanged. Addendum: 03/05/2018 06:27 Co-signature as Attending Physician, Kang Ayala MD I agree with the assessment and c root plan of care. Signatures: Dispatcher [employer] Jasmin Andrea RN RN Catherine Michaud RN RN aa1 Kang Ayala MD MD cha Page, Corey, PA PA cp Corrections: (The following items were deleted from the chart) 03/02 23:30 23:17 03/02/2018 23:17 Discharged to Home. Impression: Cellulitis of left lower limb - aa1 Post ORIF of Tibia. Condition is Stable. Forms are Medication Reconciliation Form, Thank You Letter, Antibiotic Education, Prescription Opioid Use. Follow up: Private Physician; When: DR Downs next 2-3 days for wound check; Reason: Wound Recheck. Problem is new. Symptoms are unchanged. cp
== END 2018-03-02 23:30 | disposition home or self-care (01) ==
LOC: ER 17:52
DX: T81.4XXA Infection following a procedure, initial encounter (principal); L03.116 Cellulitis of left lower limb; E78.00 Pure hypercholesterolemia, unspecified; I10 Essential (primary) hypertension; Z88.8 Allergy status to other drugs, medicaments and biological substances; Z88.5 Allergy status to narcotic agent; Z88.0 Allergy status to penicillin; R51 Headache; Z86.12 Personal history of poliomyelitis
CPT/HCPCS: 36415; 80048; 81003; 85025; 87040; 96361; 96365; 99284

== ENCOUNTER 2019-11-03 13:21 | Emergency (ER) | payer OTHER ==
--- OUTSIDE RECORDS SUMMARY | 2019-11-03 13:23 | XMS REPORT ---
:1955 Author Organization [facility] t Address [address] Hernandez [address] [place] [id number] Care Team Providers Name Role Phone JUANA AGUIRRE M.D. Unavailable Unavailable JAMAAL WU P.A. Unavailable Unavailable Problems Condition Condition Condition Status Onset Resolution Last Treatin g Comments Name Details Category Date Date Treatment Clinician Date Closed Closed Problem Active fracture of fracture of HL7.CCDAR2 tibial tibial plateau plateau Allergies, Adverse Reactions, Alerts This patient has no known allergies or adverse reactions. Medications Ordered Filled Start Stop Current Ordering Indication Dosage Frequency Signature Comments Components Medication Medication Date Date Medication? Clinician (SIG) Name Name Gabapentin Gabapentin Yes JAMAAL Q0.5D TAKE 1 300 MG Oral 300 MG Oral 9 LIVELY CAPSULE Capsule Capsule 00:00: P.A. TWICE 00 DAILY. Procedures and Interventions Procedure Date / Time Performed Performing Clinici an [U] XRAY KNEE 1 OR 2 VWS LEFT [id number] 2018-05-09 00:00:00 [U] XRAY FOOT MIN 3 VWS LEFT [id number] 2018-04-05 00:00:00 [U] XRAY KNEE 1 OR 2 VWS LEFT [id number] 2018-03-30 00:00:00 Encounters Start End Encounter Admission Attending Care Care Encounter Date/Time Date/Time Type Type Clinicians Facility Department ID 2018-05-17 2018-05-17 Appointment [facility] [id number] 11:15:00 11:15:00 ; JUANA AGUIRRE JOSHUA, M.D. M.D. 2018-04-05 2018-04-05 Appointment [facility] 45 [id number] 11:30:00 11:30:00 ; JAMAAL WU AUDREY, P.A. P.A. 2018-03-08 2018-03-08 Appointment KEVIN AGUIRRE [id number] 11:30:00 11:30:00 ; JUANA AGUIRRE JOSHUA, M.D. M.D. Results Test Description Test Time Test Comments Text Results Atomic Results Result Comments [U] XRAY KNEE 1 OR 2 VWS LEFT 2018-03-08 11:42:00 Images acquired, [place] [id number] this accession number.
--- OUTSIDE RECORDS SUMMARY | 2019-11-03 13:23 | XMS REPORT | Summary of Care ---
:1955 Author Name Thien Address [facility] Unavailable , Care Team Providers Name Role Phone Thien Unavailable Unavailable JAZMIN P.ABrant Unavailable Neftali LEAL MD Unavailable Unavailable Unavailable Unavailable Unavailable Functional Status Name Dates Details Functional status health issues are not documented Status: Name Dates Details Cognitive status health issues are not documented Status: Problems Name Dates Details Closed fracture of tibial plateau (823.00, S82.143A) Status: Active Medications Name Dates Details Gabapentin 300 MG Oral Capsule TAKE 1 CAPSULE TWICE DAILY. Quantity: 60 Refills: 0 JAMAAL KRUEGER Start : 05-Apr-2018 Active Allergies and Adverse Reactions Name Dates Details Allergy history not documented Status: Procedures Procedure Dates Details Procedures not documented Immunization Name Dates Details Immunizations not documented Social History Name Dates Details Unknown if ever smoked Vital Signs Date Test Result Details No Known Vitals to report Results Date Description Value Details Results not documented Plan of Care Name Dates Details Planned Observations Planned Goals not documented Instructions Name Dates Details Instructions not documented Encounters Appointment; JUANA AGUIRRE M.D. On: 08-Mar-2018 11:30 Encounter Diagnosis: Problem not documented Appointment; JAMAAL WU PMaykel On: 05-Apr-2018 11:3 0 Encounter Diagnosis: Problem not documented
[2019-11-03] MEDS ORDERED: MAGNE/ALUM HYDROXD 30 ML UCUP ONE (15:17)
--- NOTE | 2019-11-03 16:11 | EDPHYS ---
Physician Documentation [facility] Name: Hosea Manriquez Age: 64 yrs Sex: Male : 1955 Arrival Date: 11/03/2019 Time: 13:22 Bed 7 Private MD: ED Physician Kang Ayala HPI: 11/02 13:33 This 64 yrs old Male presents to ER via Unassigned with complaints of Groin carmenza Pain. 13:33 The patient presents with decreased range of motion, pain, that is acute. The carmenza complaints affect the right hamstring, right calf, medial aspect of right thigh, medial aspect of right calf, right quadriceps, right knee and right nunez. Context: The problem was sustained at an unknown site, resulted from an unknown cause, the patient can partially bear weight. Onset: The symptoms/episode began/occurred 1 day(s) ago. Modifying factors: The symptoms are alleviated by elevating leg, remaining still, the symptoms are aggravated by movement, weight bearing. Associated signs and symptoms: The patient has no apparent associated signs or symptoms. Treatment prior to arrival includes: no previous treatment. Severity of symptoms: At their worst the symptoms were mild, moderate, in the emergency department the symptoms are unchanged. The patient has not experienced similar symptoms in the past. Historical: - Allergies: 13:37 Benadryl; ph 13:37 Codeine; ph 13:37 PENICILLINS; ph - PMHx: 13:37 Chronic headaches; High Cholesterol; Hypertension; Polio; Sciatic nerve pain; ph - PSHx: 13:37 Knee surgery; foot surgery; ph - Immunization history:: Adult Immunizations unknown. - Social history:: Smoking status: Patient denies any tobacco usage or history of. - Family history:: not pertinent. ROS: 13:33 Constitutional: Negative for fever, chills, and weight loss, Eyes: Negative for injury, carmenza pain, redness, and discharge, ENT: Negative for injury, pain, and discharge, Neck: Negative for injury, pain, and swelling, Cardiovascular: Negative for chest pain, palpitations, and edema, Respiratory: Negative for shortness of breath, cough, wheezing, and pleuritic chest pain, Abdomen/GI: Negative for abdominal pain, nausea, vomiting, diarrhea, and constipation, Back: Negative for injury and pain, : Negative for injury, bleeding, discharge, and swelling, Skin: Negative for injury, rash, and discoloration, Neuro: Negative for headache, weakness, numbness, tingling, and seizure, Psych: Negative for depression, anxiety, suicide ideation, homicidal ideation, and hallucinations, Allergy/Immunology: Negative for hives, rash, and allergies, Endocrine: Negative for neck swelling, polydipsia, polyuria, polyphagia, and marked weight changes, Hematologic/Lymphatic: Negative for swollen nodes, abnormal bleeding, and unusual bruising. 13:33 MS/extremity: Positive for decreased range of motion, pain, swelling, tenderness, of the right inner thigh and medial aspect of right thigh. Exam: 13:33 Constitutional: This is a well developed, well nourished patient who is awake, alert, carmenza and in no acute distress. Head/Face: Normocephalic, atraumatic. Eyes: Pupils equal round and reactive to light, extra-ocular motions intact. Lids and lashes normal. Conjunctiva and sclera are non-icteric and not injected. Cornea within normal limits. Periorbital areas with no swelling, redness, or edema. ENT: Nares patent. No nasal discharge, no septal abnormalities noted. Tympanic membranes are normal and external auditory canals are clear. Oropharynx with no redness, swelling, or masses, exudates, or evidence of obstruction, uvula midline. Mucous membranes moist. Neck: Trachea midline, no thyromegaly or masses palpated, and no cervical lymphadenopathy. Supple, full range of motion without nuchal rigidity, or vertebral point tenderness. No Meningismus. Chest/axilla: Normal chest wall appearance and motion. Nontender with no deformity. No lesions are appreciated. Cardiovascular: Regular rate and rhythm with a normal S1 and S2. No gallops, murmurs, or rubs. Normal PMI, no JVD. No pulse deficits. Respiratory: Lungs have equal breath sounds bilaterally, clear to auscultation and percussion. No rales, rhonchi or wheezes noted. No increased work of breathing, no retractions or nasal flaring. Abdomen/GI: Soft, non-tender, with normal bowel sounds. No distension or tympany. No guarding or rebound. No evidence of tenderness throughout. Back: No spinal tenderness. No costovertebral tenderness. Full range of motion. Male : Normal genitalia with no discharge or lesions. Skin: Warm, dry with normal turgor. Normal color with no rashes, no lesions, and no evidence of cellulitis. Neuro: Awake and alert, GCS 15, oriented to person, place, time, and situation. Cranial nerves II-XII grossly intact. Motor strength 5/5 in all extremities. Sensory grossly intact. Cerebellar exam normal. Normal gait. Psych: Awake, alert, with orientation to person, place and time. Behavior, mood, and affect are within normal limits. 13:33 Musculoskeletal/extremity: Pulses: noted to be 4+ in the bilateral radial, brachial, femoral, popliteal, posterior tibial and and dorsalis pedis arteries., Sensation intact. Compartment Syndrome exam of affected extremity: is normal. DVT Exam: negative Homans' sign noted on exam, no appreciated bluish discoloration, no erythema, no increased warmth, pain, swelling, tenderness. Vital Signs: 13:31 BP 140 / 101; Pulse 80; Resp 18; Temp 98.7; Pulse Ox 99% on R/A; ph 16:00 BP 131 / 91; Pulse 76; Resp 18; Temp 98.0; Pulse Ox 100% on R/A; ph MDM: 13:23 Patient medically screened. [facility] 13:36 Data reviewed: vital signs, nurses notes. [facility] 16:11 Differential diagnosis: closed fracture, contusion, tendonitis. Data interpreted: [facility] collar feller: not applicable for this patient encounter. ED course: usg neg for dvt, nvi , patients wants no pain meds, will follow up. 11/02 13:33 Order name: Extremity Venous Unilateral Ltd [facility] Administered Medications: 15:12 Drug: Maalox Suspension (200 mg-200 mg-20 mg/5 mL) 30 ml Route: PO; ph 16:17 Follow up: Response: No adverse reaction ph Disposition: 11/03/19 16:10 Discharged to Home. Impression: Pain in right leg - hx polio, sciatica. - Condition is Stable. - Discharge Instructions: Musculoskeletal Pain, Pain Without a Known Cause, Postpolio Syndrome. - Prescriptions for Tramadol 50 mg Oral Tablet - take 1 tablet by ORAL route every 8 hours as needed; 26 tablet. - Medication Reconciliation Form, Thank You Letter, Antibiotic Education, Prescription Opioid Use form. - Follow up: Private Physician; When: 2 - 3 days; Reason: Recheck today's complaints, Continuance of care, Re-evaluation by your physician. Follow up: Louie Sultana MD; When: 2 - 3 days; Reason: Recheck today's complaints, Continuance of care, Re-evaluation by your physician. Follow up: Donn Rivero MD; When: 2 - 3 days; Reason: Recheck today's complaints, Re-evaluation by your physician. - Problem is new. - Symptoms have improved. Signatures: Dispatcher [employer] EDKang Mujica MD MD cha Hall, Patricia RN RN ph Corrections: (The following items were deleted from the chart) 16:11 16:10 11/03/2019 16:10 Discharged to Home. Impression: Pain in right leg. Condition is carmenza Stable. Forms are Medication Reconciliation Form, Thank You Letter, Antibiotic Education, Prescription Opioid Use. Follow up: Private Physician; When: 2 - 3 days; Reason: Recheck today's complaints, Continuance of care, Re-evaluation by your physician. Problem is new. Symptoms have improved. carmenza 16:11 16:11 11/03/2019 16:10 Discharged to Home. Impression: Pain in right leg. Condition is carmenza Stable. Discharge Instructions: Musculoskeletal Pain, Pain Without a Known Cause, Postpolio Syndrome. Forms are Medication Reconciliation Form, Thank You Letter, Antibiotic Education, Prescription Opioid Use. Follow up: Private Physician; When: 2 - 3 days; Reason: Recheck today's complaints, Continuance of care, Re-evaluation by your physician. Follow up: Louie Sultana; When: 2 - 3 days; Reason: Recheck today's complaints, Continuance of care, Re-evaluation by your physician. Problem is new. Symptoms have improved. carmenza 16:13 16:11 11/03/2019 16:10 Discharged to Home. Impression: Pain in right leg. Condition is carmenza Stable. Discharge Instructions: Musculoskeletal Pain, Pain Without a Known Cause, Postpolio Syndrome. Forms are Medication Reconciliation Form, Thank You Letter, Antibiotic Education, Prescription Opioid Use. Follow up: Private Physician; When: 2 - 3 days; Reason: Recheck today's complaints, Continuance of care, Re-evaluation by your physician. Follow up: Louie Sultana; When: 2 - 3 days; Reason: Recheck today's complaints, Continuance of care, Re-evaluation by your physician. Follow up: Donn Rivero; When: 2 - 3 days; Reason: Recheck today's complaints, Re-evaluation by your physician. Problem is new. Symptoms have improved. carmenza 16:34 16:13 11/03/2019 16:10 Discharged to Home. Impression: Pain in right leg - hx polio, ph sciatica. Condition is Stable. Discharge Instructions: Musculoskeletal Pain, Pain Without a Known Cause, Postpolio Syndrome. Forms are Medication Reconciliation Form, Thank You Letter, Antibiotic Education, Prescription Opioid Use. Follow up: Private Physician; When: 2 - 3 days; Reason: Recheck today's complaints, Continuance of care, Re-evaluation by your physician. Follow up: Louie Sultana; When: 2 - 3 days; Reason: Recheck today's complaints, Continuance of care, Re-evaluation by your physician. Follow up: Donn Rivero; When: 2 - 3 days; Reason: Recheck today's complaints, Re-evaluation by your physician. Problem is new. Symptoms have improved. carmenza
--- NOTE | 2019-11-03 16:11 | ER ---
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 Coronavirus screen: Patient denies a cough. Patient denies shortness of breath or difficulty breathing. Patient denies measured and/or subjective temperature greater than 100.4F prior to today's visit. Patient denies travel on a cruise ship or to a country the [facility] currently lists as an affected area. Patient denies contact with known and/or suspected case of COVID-19. Ebola Screen: No symptoms or risks identified at this time. Initial Sepsis Screen: Does the patient meet any 2 criteria? No. Patient's initial sepsis screen is negative. Does the patient have a suspected source of infection? No. Patient's initial sepsis screen is negative. Risk Assessment: Do you want to hurt yourself or someone else? Patient reports no desire to harm self or others. Onset of symptoms was November 03, 2019. 13:31 Method Of Arrival: EMS: [facility] ph 13:31 Acuity: SABAS 4 ph Historical: - Allergies: 13:37 Benadryl; ph 13:37 Codeine; ph 13:37 PENICILLINS; ph - PMHx: 13:37 Chronic headaches; High Cholesterol; Hypertension; Polio; Sciatic nerve pain; ph - PSHx: 13:37 Knee surgery; foot surgery; ph - Immunization history:: Adult Immunizations unknown. - Social history:: Smoking status: Patient denies any tobacco usage or history of. - Family history:: not pertinent. Screenin:37 Abuse screen: Denies threats or abuse. Denies injuries from another. Nutritional ph screening: No deficits noted. Tuberculosis screening: No symptoms or risk factors identified. Fall Risk No fall in past 12 months (0 pts). Secondary diagnosis (15 points) impaired mobility, No IV (0 pts). Ambulatory Aid- Crutches/Cane/Walker (15 pts). Gait- Impaired (20 pts.). Mental Status- Oriented to own ability (0 pts). Total Tracey Fall Scale indicates High Risk Score (45 or more points). Fall prevention measures have been instituted. Side Rails Up X 2 Placed Close to Nursing Station Frequent Obs/Assessments Occuring As available patient and family educated on Fall Prevention Program and Strategies. Assessment: 13:38 General: Appears in no apparent distress. comfortable, well groomed, Behavior is calm, ph cooperative, appropriate for age, Denies fever, feeling ill. Pain: Complains of pain in right inner thigh. Neuro: Level of Consciousness is awake, alert, obeys commands, Oriented to person, place, time, situation. Cardiovascular: Capillary refill < 3 seconds in bilateral fingers Patient's skin is warm and dry. Respiratory: Airway is patent Respiratory effort is even, unlabored, Respiratory pattern is regular, symmetrical, Denies cough, shortness of breath. Derm: Skin is intact, is healthy with good turgor, Skin is pink, warm \\T\\ dry. Musculoskeletal: Circulation, motion, and sensation intact. Range of motion: intact in all extremities. 14:32 Reassessment: Patient appears in no apparent distress at this time. Patient and/or ph family updated on plan of care and expected duration. Pain level reassessed. Patient is alert, oriented x 3, equal unlabored respirations, skin warm/dry/pink. Pt resting quietly, awaiting US. 15:30 Reassessment: Patient appears in no apparent distress at this time. No changes from previously documented assessment. Patient and/or family updated on plan of care and expected duration. Pain level reassessed. Patient is alert, oriented x 3, equal unlabored respirations, skin warm/dry/pink. Vital Signs: 13:31 BP 140 / 101; Pulse 80; Resp 18; Temp 98.7; Pulse Ox 99% on R/A; ph 16:00 BP 131 / 91; Pulse 76; Resp 18; Temp 98.0; Pulse Ox 100% on R/A; ph ED Course: 13:22 Patient arrived in ED. am2 13:23 Kang Ayala MD is Attending Physician. [facility] 13:31 Pilar Sharp, RN is Primary Nurse. ph 13:37 Triage completed. ph 13:38 Arm band placed on Patient placed in an exam room, on a stretcher. ph 13:38 Patient has correct armband on for positive identification. Bed in low position. Call ph light in reach. Side rails up X 1. Pulse ox on. NIBP on. Door closed. Noise minimized. Warm blanket given. 16:04 US Extremity Venous Unilateral Ltd In Process Unspecified. EDMS 16:10 Louie Sultana MD is Referral Physician. [facility] 16:11 Donn Rivero MD is Referral Physician. [facility] 16:25 No provider procedures requiring assistance completed. Patient did not have IV access ph during this emergency room visit. Administered Medications: 15:12 Drug: Maalox Suspension (200 mg-200 mg-20 mg/5 mL) 30 ml Route: PO; ph 16:17 Follow up: Response: No adverse reaction ph Outcome: 16:10 Discharge ordered by . carmenza 16:34 Patient left the ED. ph 16:34 Discharged to home via wheelchair, with significant other. ph 16:34 Condition: good 16:34 Discharge instructions given to family, Instructed on discharge instructions, follow up and referral plans. medication usage, Demonstrated understanding of instructions, follow-up care, medications, Prescriptions given X 1. Signatures: Dispatcher [employer] Kang Medley MD MD cha Hall, Patricia, RN RN Annamarie Dawn am2
[2019-11-03 16:46] VITALS: BP 140/101; TEMP 98.7; O2SAT 99
--- NOTE | 2019-11-03 16:50 | RAD REPORT ---
EXAM DESCRIPTION: US - Extremity Venous Uni Ltd - 11/03/2019 4:00 pm CLINICAL HISTORY: Pain;Radiculopathy COMPARISON: None. TECHNIQUE: Real-time sonographic evaluation of the right lower extremity deep venous systems was per formed. FINDINGS: Normal compressibility, flow augmentation, phasic flow and spontaneous flow are identified in the right lower extremity common femoral, superficial femoral, popliteal and posterior tibial vei ns. No intraluminal filling defects seen. IMPRESSION: No DVT in the right lower extremity.
== END 2019-11-03 16:34 | disposition home or self-care (01) ==
LOC: ER 13:21
DX: M54.30 Sciatica, unspecified side (principal); Z86.12 Personal history of poliomyelitis; I10 Essential (primary) hypertension; Z88.0 Allergy status to penicillin; Z88.5 Allergy status to narcotic agent; Z88.8 Allergy status to other drugs, medicaments and biological substances
CPT/HCPCS: 93971; 99284

== ENCOUNTER 2019-11-05 10:40 | Inpatient (IN) | payer OTHER ==
--- OUTSIDE RECORDS SUMMARY | 2019-11-05 10:52 | XMS REPORT ---
:1955 Author Organization [facility] t Address [address] [place] [address] Care Team Providers Name Role Phone JUANA [...] 1 300 MG Oral 300 MG Oral 04-05 LIVELY CAPSULE Capsule Capsule 00:00: P.A. TWICE 00 DAILY. Procedures and Interventions Procedure Date / Time Performed Performing Clinici an [U] XRAY KNEE 1 OR 2 VWS LEFT [id number] 2018-05-09 00:00:00 [U] XRAY FOOT MIN 3 VWS LEFT [id number] 2018-04-05 00:00:00 [U] XRAY KNEE 1 OR 2 VWS LEFT [id number] 2018-03-30 00:00:00 Encounters Start End Encounter Admission Attending Care Care Encounter Date/Time Date/Time Type Type Clinicians Facility Department ID 2018-05-17 2018-05-17 Appointment [facility] [id number] 11:15:00 11:15:00 ; JUANA AGUIRRE JOSHUA, M.D. M.D. 2018-04-05 2018-04-05 Appointment [facility] [id number] 11:30:00 11:30:00 ; JAMAAL WU AUDREY, P.A. P.A. 2018-03-08 2018-03-08 Appointment KEVIN AGUIRRE [id number] 11:30:00 11:30:00 ; JUANA AGUIRRE JOSHUA, M.D. M.D. Results Test Description Test Time Test Comments Text Results Atomic Results Result Comments [U] XRAY KNEE 1 OR 2 VWS LEFT 2018-03-08 11:42:00 Images [place], [place] [id number] this accession number.
[2019-11-05] MEDS: CEFTRIAXONE/SWI 1gm 1 GM/10 ML SYR IV SCH ×2 (12:30→20:04)
--- NOTE | 2019-11-05 12:34 | RAD REPORT ---
EXAM DESCRIPTION: RAD - Foot Right 2 View - 11/05/2019 11:57 am CLINICAL HISTORY: fall, foot pain COMPARISON: Foot Right 3 View dated 01/19/2018 FINDINGS: No fracture, dislocation or periosteal reaction. No acute or destructive bone process. Fla ttened plantar arch present. No acute or destructive bone process identifiable. Bones are osteopenic. Increased soft tissue swelling/ edema present in the foot and ankle compared to 2018. No air or foreign body seen. IMPRESSION: Soft tissue swelling or edema increased from 2018. No air or foreign body in the soft ti ssues. No acute bone finding.
--- NOTE | 2019-11-05 12:35 | RAD REPORT ---
EXAM DESCRIPTION: RAD - Chest Single View - 11/05/2019 11:57 am CLINICAL HISTORY: fever COMPARISON: February 2018, September 2013 TECHNIQUE: AP portable chest image was obtained 11/05/2019 11:57 am . FINDINGS: No peripheral mass or consolidation. Hazy opacification along the right heart border match es prior imaging. No failure or volume overload. Heart and vasculature are normal. No measurable pleu ral effusion and no pneumothorax. No acute bony abnormality seen. No acute aortic findings suspected. IMPRESSION: No acute cardiopulmonary process. Chest is not significantly different from comparison.
[2019-11-05 12:38] LABS: Absolute Lymphocytes (CBC) 0.7 K/uL (0.7-4.9); Basophils % 0.2 % (0-1.3); Hematocrit 42.6 % (39.6-49.0); Lymphocytes % 3.6 % (15.3-44.8); MPV 8.6 fL (7.6-11.3); RBC Red Blood Cell Count 5.04 M/uL (4.33-5.43)
--- NOTE | 2019-11-05 12:39 | RAD REPORT ---
EXAM DESCRIPTION: RAD - Tib Fib Right - 11/05/2019 11:59 am CLINICAL HISTORY: fall, leg pain COMPARISON: No comparisons FINDINGS: No fractures identified. Degenerative changes are present at the knee joint. Assessment of in the is limited by positioning. Joint effusion cannot be assessed on this study. Dedicated knee im aging could be performed if the patient has localizing symptoms. Distal to the knee joint with the tibia and fibula show no acute findings. Bones are osteopenic. No p athologic bone process. Soft tissues do appear edematous with the baseline for the patient unknown. No air or foreign body. IMPRESSION: No acute tibia or fibula finding identifiable. The tibia at the knee joint to the joint itself are limited in assessment. Directed imaging could be performed if the patient has localizing symptoms. Edematous soft tissues with the known baseline. No air or foreign body.
[2019-11-05 12:54] LABS: Bilirubin Total 0.8 mg/dL (0.2-1.0); Magnesium 2.2 mg/dL (1.8-2.4); Potassium 3.3 mmol/L (3.5-5.1); Protein, Total 7.4 g/dL (6.4-8.2)
[2019-11-05 13:28] LABS: Blood Morphology Comment NOT SEEN (NOT SEEN); Platelet Estimate ADEQ
[2019-11-05] MEDS: ACETAMINOPHEN 500 MG TAB PO PRN (20:08)
[2019-11-05] MEDS ORDERED: POTASSIUM CL SA 10 MEQ TAB PO ONE (21:00)
--- NOTE | 2019-11-05 22:24 | HP ---
Date of Admission: 11/05/2019 Chief Complaint: Fever, chills, redness of right leg. History Of Present Illness: This is a 64-year-old pleasant male patient who had injury few days ago as he was working on his car and transmitter that he was carrying actually, then fall on his leg, but as he reports that as he was carrying he actually ended up pinching his skin on his right upper thigh with the transmitter and subsequently he came into emergency room. His venous Doppler of right leg was negative. After he went home, miss balance and fell down and subsequently started to have redness of the skin involving right lower extremity and right foot and had some low-grade fever so he called and talked to me yesterday and he was evaluated via Tele-visit and he was started on oral antibiotics yesterday, which was Bactrim. Today, the patient called and reported that his temperature early this morning was 103.6, and he was having swelling and pain in his right leg and redness continued like it was noted yesterday. So, the patient was asked to come to office and he was evaluated outside the office in the parking lot with a mask on and he was admitted to the hospital. 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 She is not having any signs or symptoms of any infection. After the patient was evaluated in the parking lot and arrangements were made for him to be admitted directly to the hospital and he was admitted and kept in isolation room and his COVID-19 test was done, result came back negative, so he will be moved out of isolation to regular room. I did go to hospital this evening and saw him. He denies any other new complaints. Allergies: TO PENICILLIN, TRAMADOL, CODEINE, AND BENADRYL. Medications: List reviewed. Review of Systems: Dermatology: As mentioned above. Constitutional: As mentioned above. All other systems reviewed and negative. Past Medical History: Allergic rhinitis; asthma is mild, intermittent; hypertension; hyperlipidemia; gastroesophageal reflux disease; anxiety; and post-polio syndrome. Past Surgical History: Cervical spine surgery, knee surgery, multiple leg surgeries due to polio. Family History: Father had coronary artery disease. Mother has hypertension and hyperlipidemia. Social History: Negative for smoking. Use of alcohol, negative. Physical Examination: Vital Signs: Temperature 98.9, pulse 87, respiratory rate 18, blood pressure 105/61, oxygen saturation 97%. Height 5 feet 5 inches, weight 145 pounds. General: Awake, alert, oriented, not in distress. HEENT: Head atraumatic, normocephalic. Conjunctivae nonerythematous. Sclerae white. Mouth, no thrush or edema noted. Ears/Nose, no mass, lesion, discharge noted. Neck: Supple. No JVD, lymph nodes, bruit, thyromegaly noted. Lungs: Bilateral good equal air entry. Clear to auscultation. No rhonchi. No rales. Heart: Normal heart sounds, no murmur or gallop. Abdomen: Soft, bowel sounds normal. No guarding, rigidity, tenderness, mass, hepatosplenomegaly, distention, or bruit noted. Extremities: No leg edema. No calf tenderness. Skin: Right lower extremity has redness of right and anterior and medial thigh with some soft tissue swelling in that region as well as skin between his right knee and extending all the way to the toes involving entire foot. Skin is pink, warm to touch and has about grade 1 pedal edema of the right lower extremity. Lymphatics: No lymph node enlargement in neck, supraclavicular, infraclavicular region. Neuro: Patient has significant weakness with muscle atrophy of both lower extremities and this is a chronic finding due to his post-polio syndrome. Chest: Unremarkable. External Genitalia: Deferred. Rectal: Deferred. Laboratory Data: White count 19.1, hemoglobin 14.2, platelets 205. Sodium 137, potassium 3.3, chloride 102, bicarb 26, BUN 22, creatinine 1.05, glucose 109. Liver function tests unremarkable. X-ray of right foot and right tibia fibula negative for fracture. Chest x-ray, no acute cardiopulmonary changes. Impression: 1. Cellulitis, right leg. 2. Hypokalemia. 3. Hypertension. 4. Hyperlipidemia. 5. Mild intermittent asthma. 6. Allergic rhinitis. Plan: We will admit the patient to hospital for further evaluation and management of this problem. Patient is appropriate for inpatient and is expected to spend 2 midnights in the hospital. DVT prophylaxis will be given using Lovenox. We will start the patient on IV antibiotic which is ceftriaxone. Repeat blood work tomorrow morning. Home medications will be continued per order. Details and plan of treatment discussed with the patient. Blood culture was done. We will follow up on culture results. JG/KRISTY Voice ID: [id number] [email or web address]
[2019-11-06 05:42] LABS: Absolute Lymphocytes (CBC) 0.7 K/uL (0.7-4.9); Basophils % 0.4 % (0-1.3); Hematocrit 40.7 % (39.6-49.0); Lymphocytes % 4.7 % (15.3-44.8); RBC Red Blood Cell Count 4.73 M/uL (4.33-5.43)
[2019-11-06 05:57] LABS: Magnesium 2.3 mg/dL (1.8-2.4); Potassium 3.8 mmol/L (3.5-5.1)
[2019-11-06] MEDS ORDERED: POTASSIUM CL SA 10 MEQ TAB PO ONE (08:00)
[2019-11-06] MEDS: NA CHLORIDE 0.9% 1,000 ML IV SCH ×2 (08:36→20:38)
[2019-11-06] MEDS: ENOXAPARIN 30 MG/0.3 ML SQ SCH (08:36)
[2019-11-06] MEDS: CEFTRIAXONE/SWI 1gm 1 GM/10 ML SYR IV SCH ×2 (10:57→20:30)
[2019-11-06] MEDS: ACETAMINOPHEN 500 MG TAB PO PRN ×2 (17:43→21:50)
--- NOTE | 2019-11-06 22:30 | PN ---
Date of Progress Note: 11/06/2019 Subjective: Patient was seen this morning for followup. No new complaints problems reported by allie ent. Lying in bed, not in distress. His right leg redness is slightly better this morning. No new complaints, problems reported by him. Objective: Vital Signs: Reviewed. HEENT: Unremarkable. Lungs: Clear to auscultation. Cardiac: Heart sounds normal. Abdomen: Soft, bowel sounds normal. No guarding, rigidity, tenderness, or distention. Extremities: Right leg edema remains unchanged. Redness from right lower extremity distribution of redness from right thigh and right lower leg remains unchanged, but intensity of redness is less toda y compared to yesterday. Laboratory Data: White count 15.2, hemoglobin 13.4, platelets 186. Sodium 137, potassium 3.8, chlor helen 105, bicarb 23, BUN 31, creatinine 1.46, glucose 79, magnesium 2.2. Impression: 1.Acute kidney injury. 2.Cellulitis, right leg. 3.Hypertension. 4.Post-polio syndrome. Plan: We will continue current medications, current IV antibiotic. White blood cell count has impro rancho today. We will repeat blood work tomorrow. Patient has acute kidney injury and his blood pressu re was running on the lower side. We will not give any antihypertensive medication at this point, bu t start the patient on IV fluid per order. We will repeat blood work tomorrow and depending on tomor row's blood work and the patient's condition, we will decide if he is stable for discharge tomorrow or day after tomorrow. Details were discussed with the patient. JG/MODL Voice ID: [id number] Report ID: [id number]
[2019-11-07 04:45] LABS: Absolute Lymphocytes (CBC) 0.6 K/uL (0.7-4.9); Basophils % 0.2 % (0-1.3); Hematocrit 37.3 % (39.6-49.0); Lymphocytes % 4.7 % (15.3-44.8); RBC Red Blood Cell Count 4.35 M/uL (4.33-5.43)
[2019-11-07 04:56] LABS: BUN Blood Urea Nitrogen 18 mg/dL (7-18); Bicarbonate 19 mmol/L (21-32); Glucose Level 100 mg/dL (74-106); Magnesium 1.8 mg/dL (1.8-2.4); Potassium 3.4 mmol/L (3.5-5.1); Sodium Level 137 mmol/L (136-145)
[2019-11-07] MEDS ORDERED: MAGNESIUM SULFATE 1 gm IVPB 1 GM/100 ML BAG IV ONE (05:06)
[2019-11-07] MEDS ORDERED: POTASSIUM CL SA 10 MEQ TAB PO ONE (05:07)
[2019-11-07] MEDS: ENOXAPARIN 30 MG/0.3 ML SQ SCH (09:36)
[2019-11-07] MEDS: CEFTRIAXONE/SWI 1gm 1 GM/10 ML SYR IV SCH ×2 (09:37→20:49)
[2019-11-07] MEDS: NA CHLORIDE 0.9% 1,000 ML IV SCH (09:37)
[2019-11-07] MEDS: LOPERAMIDE HCL 2 MG CAPSULE PO PRN ×2 (10:52→13:07)
[2019-11-07] MEDS: DOXYCYCLINE 100 MG in NA CHLORIDE 0.9% 100 ML IVPB SCH ×2 (10:52→20:49)
[2019-11-07] MEDS: ACETAMINOPHEN 500 MG TAB PO PRN (15:55)
[2019-11-07] MEDS: FAMOTIDINE 20 MG TAB PO SCH ×2 (20:50→21:00)
--- NOTE | 2019-11-07 20:53 | PN ---
Date of Progress Note: 11/07/2019 Subjective: Patient was seen earlier this morning and this evening. When I saw him this morning, no new complaints or problems reported. Continues to have some swelling of right leg with redness. No nausea, vomiting. Objective: Vital Signs: Reviewed. HEENT: Unremarkable. Lungs: Clear to auscultation. Heart: Sounds normal. Abdomen: Soft. Bowel sounds normal. No guarding, rigidity, tenderness, or distention. Extremities: Presence of edema of right lower extremity. Edema from right lower extremity looks a little more today than yesterday, and has increased redness of right lower extremity. Distribution is same, but intensity of redness is more in right lower extremity from knee to the toes area. Intensity of redness from right medial thigh is actually better. Laboratory Data: White count 13.2, hemoglobin 12.4. Sodium 137, potassium 3.4, chloride 107, bicarb 19, BUN 18, creatinine 0.68, glucose 100. Procalcitonin 1.49. Impression: 1. Cellulitis, right leg. 2. Acute kidney injury, improved. 3. Hypokalemia. Plan: Patient's WBC count and procalcitonin shows improvement with current antibiotics. His redness from the lower leg is more today compared to yesterday and I will go ahead and add another antibiotic doxycycline at present time 100 mg IV every 12 hours. Continue ceftriaxone. Continue DVT prophylaxis. Patient has remained afebrile and his blood pressure has improved during the course of day today. After I saw him this morning, he called my office and was concerned that his leg and foot were looking black and if he was going to end up losing his leg and we reassured him at that time that there was no concern like that and I went back this evening to check on him again as well as to reassure him. His leg exam was unchanged from this morning. There was no evidence of any gangrene or any ischemia. Patient was advised to keep his leg elevated this morning when I saw him and when I asked him this evening, I found out that he really was not compliant with that recommendation; and once again, I explained it to him how important it is for him to keep his legs elevated as suggested almost all the time. I will see him tomorrow for followup. We will repeat blood work tomorrow. Replace potassium per replacement protocol. JG/MODL Voice ID: [id number] Report ID: [id number]
[2019-11-07] MEDS: TRAMADOL HCL 50 MG TAB PO PRN (21:02)
[2019-11-08] MEDS: NA CHLORIDE 0.9% 1,000 ML IV SCH (00:11)
[2019-11-08 06:23] LABS: Absolute Lymphocytes (CBC) 0.8 K/uL (0.7-4.9); Basophils % 0.3 % (0-1.3); Hematocrit 37.3 % (39.6-49.0); Lymphocytes % 6.2 % (15.3-44.8); RBC Red Blood Cell Count 4.35 M/uL (4.33-5.43)
[2019-11-08 06:38] LABS: BUN Blood Urea Nitrogen 11 mg/dL (7-18); Bicarbonate 19 mmol/L (21-32); Glucose Level 112 mg/dL (74-106); Magnesium 1.9 mg/dL (1.8-2.4); Sodium Level 139 mmol/L (136-145)
--- NOTE | 2019-11-08 08:42 | PN ---
Date of Progress Note: 11/08/2019 History Of Present Illness: Patient was seen this morning for followup. He was lying in bed, not in distress. Yesterday he had some diarrhea that resolved after taking Imodium. He has kept his right leg elevated as suggested and this morning his right foot swelling is slightly better compared to ye . Redness from right lower leg is better compared to yesterday. Lower half of the leg and fo ot redness is better. The upper half of the leg redness remains unchanged from yesterday. Medial th igh redness and mild soft tissue swelling remains unchanged from yesterday. No evidence of any ische keely, gangrene, or any open wound. Physical Examination: HEENT: Examination unremarkable. Lungs: Clear to auscultation. Heart: Sounds normal. Abdomen: Soft. Bowel sounds normal. No guarding, rigidity, tenderness, or distention. Laboratory Data: White count 13.3, hemoglobin 12.2, platelets 225. Sodium 139, potassium 4, chlorid e 109, bicarb 19, BUN 11, creatinine 0.59, glucose 112, magnesium 1.9. Procalcitonin result pending. Impression: 1.Right leg cellulitis. 2.Acute kidney injury. 3.Post-polio syndrome. Plan: We will continue current medications. Continue current IV antibiotic which is ceftriaxone and doxycycline. Patient was encouraged to keep his right lower extremity elevated majority of the time , the way he has done it overnight. We will discontinue IV fluid, repeat blood work tomorrow morning as long as he continues to show improvement like he has shown in the last 24 hours. We will continu e current antibiotics and if there is any concern about worsening, then we will have to change antibi otics and I did discuss those details with him. I will see him tomorrow for followup. Patient will be spending weekend in the hospital with IV antibiotics and close monitoring and earliest possible discharge will be on Monday depending on his overall condition. All the details were discussed with him. JG/MODL Voice ID: [id number] Report ID: [id number]
[2019-11-08] MEDS: FAMOTIDINE 20 MG TAB PO SCH ×2 (08:44→20:25)
[2019-11-08] MEDS: ENOXAPARIN 30 MG/0.3 ML SQ SCH (08:44)
[2019-11-08] MEDS: CEFTRIAXONE/SWI 1gm 1 GM/10 ML SYR IV SCH ×2 (09:40→20:25)
[2019-11-08] MEDS: DOXYCYCLINE 100 MG in NA CHLORIDE 0.9% 100 ML IVPB SCH ×2 (09:40→20:26)
[2019-11-08 11:41] VITALS: BMI 24.1
[2019-11-09] MEDS: ACETAMINOPHEN 500 MG TAB PO PRN (02:31)
[2019-11-09 07:24] LABS: Absolute Lymphocytes (CBC) 1.2 K/uL (0.7-4.9); Basophils % 0.3 % (0-1.3); Hematocrit 37.4 % (39.6-49.0); Lymphocytes % 10.2 % (15.3-44.8); MPV 8.3 fL (7.6-11.3); RBC Red Blood Cell Count 4.34 M/uL (4.33-5.43)
[2019-11-09 07:41] LABS: BUN Blood Urea Nitrogen 8 mg/dL (7-18); Bicarbonate 24 mmol/L (21-32); Glucose Level 103 mg/dL (74-106); Magnesium 1.9 mg/dL (1.8-2.4); Potassium 3.8 mmol/L (3.5-5.1); Sodium Level 140 mmol/L (136-145)
[2019-11-09] MEDS: ENOXAPARIN 30 MG/0.3 ML SQ SCH (09:00)
[2019-11-09] MEDS: DOXYCYCLINE 100 MG in NA CHLORIDE 0.9% 100 ML IVPB SCH (09:00)
[2019-11-09] MEDS: FAMOTIDINE 20 MG TAB PO SCH ×2 (09:01→21:32)
[2019-11-09] MEDS: CEFTRIAXONE/SWI 1gm 1 GM/10 ML SYR IV SCH ×2 (11:16→21:32)
[2019-11-09] MEDS: lisinopriL 5 MG TAB PO SCH ×2 (11:17→21:32)
[2019-11-09] MEDS: VANCOMYCIN/NS 1 gm 1 GM/250 ML BAG IV SCH (13:23)
--- NOTE | 2019-11-09 14:45 | PN ---
Date of Progress Note: 11/09/2019 Subjective: Patient was seen this morning for followup. No diarrhea, nausea, vomiting. No new comp laints or problems reported by him. Objective: Vital Signs: Reviewed. HEENT: Unremarkable. Lungs: Clear to auscultation. Heart: Sounds normal. Abdomen: Soft, bowel sounds normal. No guarding, rigidity, tenderness, or di stention. Extremities: Right leg edema is present, but edema from the foot is better and from lower leg is als o somewhat better. Redness from right medial thigh distribution is same, but intensity has gotten wo rse today compared to last couple of days. The skin between right knee and right foot toes, upper root lf shows the intensity of the redness has gotten worse and the lower half shows significant improveme nt in terms of redness and intensity of it. Upper posterior right heel has transfers area of about 2 mm white skin that appears bluish in color and this is likely from topical pressure when he was putt ing his foot in bed in certain way. He had his leg elevated as advised, but what I have advised him to keep it offloaded all the time along with elevation, so that area of the heel does not come in con tact with any other surface and I did assist him to position his foot in such a way. Laboratory Data: White count 12.2, hemoglobin 12.4, platelets 259. Sodium 140, potassium 3.8, chlor helen 108, bicarb 24, BUN 8, creatinine 0.51, glucose 103, magnesium 1.9, procalcitonin 0.42. Impression: 1.Cellulitis, right leg. 2.Acute kidney injury, resolved. 3.Hypertension. Plan: We will go ahead and start the patient on antihypertensive medication lisinopril 5 mg twice a day. Continue ceftriaxone. We will stop doxycycline and start the patient on vancomycin and PICC li ne was ordered. Details of plan of treatment discussed with the patient. Depending on how he respon ds to this antibiotic, we will decide about possible discharge at beginning of the week and there is a good possibility, he may need to go home with IV antibiotics and in that case, on Monday, we will request Social Service to assist us with arrangements for home IV antibiotics. All t hese details were discussed with him. JG/MODL Voice ID: [id number] Report ID: [id number]
[2019-11-09] MEDS: LOPERAMIDE HCL 2 MG CAPSULE PO PRN (15:35)
[2019-11-09] MEDS ORDERED: POTASSIUM CL SA 10 MEQ TAB PO ONE (21:00)
[2019-11-10] MEDS: VANCOMYCIN/NS 1 gm 1 GM/250 ML BAG IV SCH ×2 (01:00→12:00)
[2019-11-10] MEDS: lisinopriL 5 MG TAB PO SCH ×2 (07:46→20:18)
[2019-11-10] MEDS: FAMOTIDINE 20 MG TAB PO SCH ×2 (07:46→20:18)
[2019-11-10] MEDS: ENOXAPARIN 30 MG/0.3 ML SQ SCH (07:46)
[2019-11-10] MEDS: CEFTRIAXONE/SWI 1gm 1 GM/10 ML SYR IV SCH (07:47)
[2019-11-10 07:53] VITALS: O2SAT 97
[2019-11-10 08:22] LABS: BUN Blood Urea Nitrogen 7 mg/dL (7-18); Bicarbonate 23 mmol/L (21-32); Glucose Level 108 mg/dL (74-106); Potassium 3.4 mmol/L (3.5-5.1); Sodium Level 144 mmol/L (136-145)
[2019-11-10] MEDS ORDERED: POTASSIUM CL SA 10 MEQ TAB PO ONE (08:27)
[2019-11-10] MEDS: Levofloxacin500mg IV 500 MG/100 ML BAG IV SCH (11:00)
--- NOTE | 2019-11-10 12:51 | RAD REPORT ---
EXAM DESCRIPTION: Chest Single View ADDENDUM #1 Please disregard prior report. Corrected report is as follows: CHEST, ONE VIEW XR CLINICAL HISTORY: PICC placement COMPARISON: Chest 11/05/2019 TECHNIQUE: AP Chest. FINDINGS: Heart is enlarged. Mild pulmonary vascular congestion. No edema. No consolidation. No pneu mothorax. Minimal eventration right hemidiaphragm. Right subclavian PICC line placed. Tip is in the inferior aspect of the superior vena cava at the cav oatrial junction. Lower cervical fusion hardware appears intact. Unremarkable soft tissues. IMPRESSION: 1. Right subclavian PICC line placed without complication. 2. Minimal pulmonary vascular congestion. Electronically signed by: Anna Patrick DO 11/10/2019 5:18 AM CDT End of Addendum CHEST, ONE VIEW XR CLINICAL HISTORY: PICC placement COMPARISON: Chest 11/05/2019 TECHNIQUE: AP Chest. FINDINGS: Heart is enlarged. Mild pulmonary vascular congestion. No edema. No consolidation. No pneu mothorax. Minimal eventration right hemidiaphragm. Right subclavian PICC line placed. Tip is in the inferior acetabular spurring vena cava. Lower cervical fusion hardware appears intact. Unremarkable soft tissues. IMPRESSION: 1. Right thalamic PICC line placed without dislocation. 2. Minimal pulmonary vascular congestion. Electronically signed by: Anna Patrick DO 11/10/2019 3:59 AM CDT Due to temporary technical issues with the PACS/Fluency reporting system, reports are being signed by the in house radiologist as a courtesy to ensure prompt reporting. The interpreting radiologist is f ully responsible for the content of the report.
--- NOTE | 2019-11-10 17:16 | PN ---
Date of Progress Note: 11/10/2019 Subjective: Patient was seen this morning for followup. No new complaints, problems reported by him. Continues to have redness of leg involving right lower extremity. No nausea, vomiting. Objective: Vital Signs: Reviewed. HEENT: Unremarkable. Lungs: Clear to auscultation. Heart: Sounds normal. Abdomen: Soft. Bowel sounds normal. No guarding, rigidity, tenderness, or distention. Extremities: Right medial thigh redness. Intensity of the redness is less today compared to yesterday. Right lower extremity between knee and toes lower half of the right leg and right foot, the intensity of the redness is better today compared to yesterday, but upper half of the right lower leg does not show any improvement compared to yesterday, it has remained unchanged, but what I see in the upper half of the leg is very likely early signs of some fluid collection underneath the skin. There is no definite evidence yet except 1 area where I could see just 1 very, very small drop of clear fluid coming out of skin, but otherwise no definite fluid collection, but I am afraid that by tomorrow this will definitely show up as a definite fluid collection and that may require surgical debridement procedure. Right heel appears unchanged from yesterday. Impression: 1. Cellulitis, right lower extremity. 2. Hypertension. Plan: At this point, we will continue vancomycin which was started yesterday and the second antibiotic that he is on which is ceftriaxone from the time of admission, we will stop that and start Levaquin. We will keep him n.p.o. after midnight and I will evaluate him tomorrow morning and if he needs surgical debridement tomorrow, then he will be ready for that and I will communicate with general surgeon regarding this. Meanwhile, to avoid any pressure on the right heel area, we have placed a special boot on his right leg and have confirm the placement of that and this is going to keep it offloaded all the time. We will repeat blood work tomorrow and I will see him tomorrow morning for followup. JG/MODL Voice ID: [id number] Report ID: [id number]
[2019-11-10] MEDS: ACETAMINOPHEN 500 MG TAB PO PRN (20:18)
[2019-11-11] MEDS: VANCOMYCIN/NS 1 gm 1 GM/250 ML BAG IV SCH ×2 (01:35→12:00)
[2019-11-11 04:41] LABS: Absolute Lymphocytes (CBC) 1.7 K/uL (0.7-4.9); Basophils % 0.8 % (0-1.3); Hematocrit 33.5 % (39.6-49.0); Lymphocytes % 15.4 % (15.3-44.8); MPV 8.1 fL (7.6-11.3); RBC Red Blood Cell Count 3.91 M/uL (4.33-5.43)
[2019-11-11 05:07] LABS: BUN Blood Urea Nitrogen 8 mg/dL (7-18); Bicarbonate 26 mmol/L (21-32); Glucose Level 103 mg/dL (74-106); Potassium 3.9 mmol/L (3.5-5.1); Sodium Level 141 mmol/L (136-145)
[2019-11-11] MEDS ORDERED: POTASSIUM CL SA 10 MEQ TAB PO ONE (07:10)
[2019-11-11] MEDS: FAMOTIDINE 20 MG TAB PO SCH ×2 (08:08→21:26)
[2019-11-11] MEDS: ENOXAPARIN 30 MG/0.3 ML SQ SCH (08:08)
[2019-11-11] MEDS: lisinopriL 5 MG TAB PO SCH ×2 (08:08→21:26)
[2019-11-11] MEDS: ACETAMINOPHEN 500 MG TAB PO PRN (08:17)
[2019-11-11] MEDS: Levofloxacin500mg IV 500 MG/100 ML BAG IV SCH (10:00)
--- NOTE | 2019-11-11 10:07 | RAD REPORT ---
EXAM DESCRIPTION: RAD - Ankle Right 3 View - 11/11/2019 9:53 am CLINICAL HISTORY: Right ankle pain FINDINGS: No fracture or dislocation is seen. The bones are osteoporotic. Soft tissue swelling
--- NOTE | 2019-11-11 10:07 | RAD REPORT ---
EXAM DESCRIPTION: RADTib Fib Right11/11/2019 9:53 am CLINICAL HISTORY: Right leg pain FINDINGS: No fracture is seen. The bones are osteoporotic. Soft tissue swelling MTDD
--- NOTE | 2019-11-11 10:08 | RAD REPORT ---
EXAM DESCRIPTION: RAD - Foot Right 3 View - 11/11/2019 9:53 am CLINICAL HISTORY: Right foot pain status post injury FINDINGS: No fracture or dislocation is seen Pes planus and hallux valgus deformities. Bones are osteoporotic. Soft tissue swelling
--- NOTE | 2019-11-12 00:28 | PN ---
Date of Progress Note: 11/11/2019 Subjective: Patient was seen this morning for followup. He was lying in bed, not in distress. Brac e was placed in right leg to help with the right heel problem yesterday to avoid any kind of contact or pressure on the right heel, and he kept it on since I placed it yesterday morning when I saw him. He also has been keeping his leg elevated as suggested. This morning, he informed me that the hard surface on the back of the leg is causing a lot of discomfort, so I did decide to take it off this mo rning, and we will continue to offload his heel the way we were doing before. Denies any new complai nts. Objective: Vital Signs: Reviewed, remains afebrile. HEENT: Unremarkable. Lungs: Clear to auscultation. Heart: Sounds normal. Abdomen: Soft. Bowel sounds normal. No guarding, rigidity, tenderness, distention. Extremities: Right leg edema is better. Still has some edema of thigh and lower leg, but better loyd n before. Skin examination of right lower extremity, right medial thigh edematous skin changes are b ger today than yesterday. Skin between right knee and right foot toes, the lower half of the leg a nd foot skin color is back to normal. Has some dry skin, but no more redness noted. Upper half of t he leg shows significant improvement compared to yesterday and there is no evidence of any fluid babak ection or any blisters as I was concerned yesterday and intensity of redness is also significantly be tter. Right posterior heel remains unchanged from yesterday. Laboratory Data: White count 10.7, hemoglobin 11.2, platelets 483. Sodium 141, potassium 3.9, chlor helen 109, bicarb 26, BUN 8, creatinine 0.50, glucose 103, procalcitonin 0.13. Impression: 1.Cellulitis, right leg. 2.Hypertension. 3.Acute kidney injury. Plan: We will continue current antibiotics, which are Levaquin and vancomycin. Social Service to fly malave arrangements for patient to have home IV vancomycin and vancomycin dose to be decided by pharmacis t depending on today's vancomycin trough level. I will see him tomorrow for followup. Possible disc harge to go home tomorrow if antibiotic arrangements can be completed by tomorrow by Social Service. Patient has a PICC line in place in right arm. Details and plan of treatment discussed with patient . JG/KRISTY Voice ID: [id number] Report ID: [id number]
[2019-11-12] MEDS: VANCOMYCIN/NS 1 gm 1 GM/250 ML BAG IV SCH ×2 (00:58→13:21)
[2019-11-12 05:06] LABS: BUN Blood Urea Nitrogen 6 mg/dL (7-18); Bicarbonate 28 mmol/L (21-32); Glucose Level 101 mg/dL (74-106); Potassium 3.7 mmol/L (3.5-5.1); Sodium Level 139 mmol/L (136-145)
[2019-11-12] MEDS: TRAMADOL HCL 50 MG TAB PO PRN (07:09)
[2019-11-12] MEDS: lisinopriL 5 MG TAB PO SCH ×2 (08:28→19:54)
[2019-11-12] MEDS: FAMOTIDINE 20 MG TAB PO SCH ×2 (08:28→19:54)
[2019-11-12] MEDS: ENOXAPARIN 30 MG/0.3 ML SQ SCH (08:29)
[2019-11-12] MEDS: IBUPROFEN 400 MG TAB PO SCH ×3 (08:32→17:18)
[2019-11-12] MEDS ORDERED: POTASSIUM CL SA 10 MEQ TAB PO ONE (09:00)
[2019-11-12] MEDS: Levofloxacin500mg IV 500 MG/100 ML BAG IV SCH (10:59)
[2019-11-12 19:54] VITALS: BP 130/73
[2019-11-12 20:25] VITALS: TEMP 98.3
--- NOTE | 2019-11-13 00:09 | DS ---
Date of Discharge: 11/12/2019 Disposition: Discharged to go home. Physical Examination: HEENT: Unremarkable. Lungs: Clear to auscultation. Heart: Heart sounds normal. Abdomen: Soft, bowel sounds normal. No guarding, rigidity, tenderness, distention. Extremities: No edema on the left leg. Right leg has trace edema, significantly better than before. Skin of the right medial thigh shows significant improvement. Has very faint pink discoloration of right medial thigh and it is significantly better. Soft tissue swelling of the right medial thigh h as almost completely resolved. Skin between his right knee and right toes of the right foot lower root lf of the right leg and right foot skin is normal in color. No evidence of any redness. No open wou nd. Upper half of the right lower leg skin shows pink discoloration, warm, completely resolved and p ink discoloration of the skin note from the upper half is also significantly better. Overall looking at his entire right lower extremity, I would say it is about 80% better compared to how it was from the worst point. Right posterior heel area has transverse slightly bluish color type of area which i s improving also . Discharge Medications And Instructions: 1.Continue all prior home medication except stop amlodipine. 2.Take Levaquin 500 mg p.o. daily for 10 days. 3.Take vancomycin 1 g IV every 12 hours for 10 days. 4.Home health nurse to assist the patient with IV vancomycin flush PICC line per protocol, remove PI CC line after IV antibiotic therapy completed and draw the patient's blood for CBC, chem 7, vancomyci n trough level to be done on 11/14/2019, 11/17/2019, and 11/20/2019. 5.Follow up at my office next week on . Laboratory Data: Labs done during this hospitalization: Last white count yesterday 10.7, hemoglobin 11.24, highest white count was 19.1 when he was admitted on 11/05/2019 with hemoglobin 14.2, platele ts 205. Last chemistry from today sodium 139, potassium 3.7, chloride 106, bicarb 28, BUN 6, creatin ine 0.48, glucose 101, procalcitonin from yesterday 0.13. Highest procalcitonin level was 3.96 on , highest creatinine was 1.46 on 11/06/2019. Hospital Course: This is a 64-year-old pleasant male patient admitted to hospital with fever chills and redness of the right leg. Please see dictated H and P for more information. After patient was a dmitted to the hospital, he was started on IV antibiotics. Initially, he was started on ceftriaxone. Due to lack of appropriate improvement, doxycycline was added. Subsequently, we stopped doxycyclin e, stopped ceftriaxone and started him on vancomycin and Levaquin. With this combination of treatmen t, his leg started showing significant improvement to the extent that it allowed us for him to go mandy e today with home IV vancomycin and oral Levaquin. His leg was kept elevated. Leg swelling has impr jya. Cellulitis has improved significantly. Cultures remained negative. He had acute kidney injur y which improved with IV fluid hydration and subsequently IV fluid was discontinued. PICC line was p laced in his right arm. Social Service was consulted and after all the arrangements completed today, the patient will be discharged to go home. Potassium was low which was corrected using electrolyte replacement protocol. Final Diagnoses: 1.Cellulitis, right leg. 2.Acute kidney injury. 3.Hypokalemia. 4.Hypertension. 5.Hyperlipidemia. 6.Mild intermittent asthma. 7.Allergic rhinitis. JG/MODL Voice ID: [id number] Report ID: [id number]
== END 2019-11-12 21:47 | disposition home health service (06) | DRG 603 ==
LOC: 4TH 10:40 → 2ND 20:39
PROVIDERS: ADMIT Internal Medicine; ATTEND Internal Medicine
PROC: 8E0ZXY6 Isolation (ICD-10-PCS; 2019-11-05)
PROC: 02HV33Z Insertion of Infusion Device into Superior Vena Cava, Percutaneous Approach (ICD-10-PCS; principal; 2019-11-10)
DX: L03.115 Cellulitis of right lower limb (principal); N17.9 Acute kidney failure, unspecified; I10 Essential (primary) hypertension; E78.5 Hyperlipidemia, unspecified; K21.9 Gastro-esophageal reflux disease without esophagitis; E87.6 Hypokalemia; G14 Postpolio syndrome; J45.20 Mild intermittent asthma, uncomplicated; Z91.19 Patient's noncompliance with other medical treatment and regimen; Z88.5 Allergy status to narcotic agent; Z20.828 Contact with and (suspected) exposure to other viral communicable diseases; Z88.8 Allergy status to other drugs, medicaments and biological substances; Z88.0 Allergy status to penicillin
CPT/HCPCS: 36415; 36569; 71045; 80048; 80053; 80202; 83735; 84132; 84145; 85025; 87040; 93971; 99284; J0696; J1650; J3370; J3475; J7030; U0002

== ENCOUNTER 2020-02-18 15:13 | Inpatient (IN) | payer OTHER ==
--- OUTSIDE RECORDS SUMMARY | 2020-02-18 15:39 | XMS REPORT | Continuity of Care Document ---
:1955 Author Organization [facility] t Address [address] [place] [address] Care Team Providers Name Role Phone TIMOTHY Attending Clinician Unavailable JAZMIN Attending Clinician Unavailable Problems Condition Condition Condition Status Onset Resolution Last Treating Co mments Source Name Details Category Date Date Treatment Clinician Date Closed Closed Problem Active [facility] fracture fracture [id number] it y of of [place] Physici ans Allergies, Adverse Reactions, Alerts This patient has no known allergies or adverse reactions. Medications Ordered Filled Start Stop Current Ordering Indication Dosage Frequency Signature Comments Components Source Medication Medication Date Date Medication? Clinician (SIG) Name Name Gabapentin Gabapentin Yes JAMAAL Q0.5D TAKE 1 Univers 300 MG Oral 300 MG Oral 9 LIVELY CAPSULE ity of Capsule Capsule 00:00: P.A. TWICE [place] 00 DAILY. Physici ans Procedures Procedure Date / Time Performed Performing Clinician [facility] e [U] XRAY KNEE 1 OR 2 2018-05-09 00:00:00 Univers ity [facility] LEFT [id number] Physicians [U] XRAY FOOT MIN 3 2018-04-05 00:00:00 Universi ty [facility] LEFT [id number] Physicians [U] XRAY KNEE 1 OR 2 2018-03-30 00:00:00 Univers ity [facility] LEFT [id number] Physicians Encounters Start End Encounter Admission Attending Care Care Encounter Source Date/Time Date/Time Type Type Clinicians Facility Department ID 2018-05-17 2018-05-17 [facility] [id number] Univers 11:15:00 11:15:00 JUANA Mariscal ity o f JOSHUA, M.D. [place] M.D. Physici ans 2018-04-05 2018-04-05 [facility] [id number] Univers 11:30:00 11:30:00 t; JAMAAL WU ity of [place] [place] Physici ans 2018-03-08 2018-03-08 Appointmen KEVIN AGUIRRE [facility] [id number] Univers 11:30:00 11:30:00 t; JUANA AGUIRRE ity o f JOSHUA, M.D. [place] M.D. Physici ans Results Test Description Test Time Test Comments Results Result Sour e Comments [U] XRAY KNEE 1 2018-03-08 Images Universit y of OR 2 VWS LEFT 11:42:00 acquired, not [place] [id number] reported on Physicians this accession number.
[2020-02-18] MEDS ORDERED: VANCOMYCIN/NS 1 gm 1 GM/250 ML BAG IVPB ONE (16:00)
[2020-02-18] MEDS ORDERED: ACETAMINOPHEN 500 MG TAB ONE (16:15)
[2020-02-18] MEDS ORDERED: NA CHLORIDE 0.9% 1,000 ML ONE (16:15)
[2020-02-18] MEDS ORDERED: CEFEPIME 2 GM VIAL ONE (16:16)
[2020-02-18] MEDS ORDERED: NA CHLORIDE 0.9% 100 ML IV ONE (16:17)
--- NOTE | 2020-02-18 16:37 | RAD REPORT ---
EXAM DESCRIPTION: US - Extremity Venous Uni Ltd - 02/18/2020 4:26 pm CLINICAL HISTORY: Pain;Swelling Leg swelling and edema. COMPARISON: Extremity Venous Uni Ltd dated 11/03/2019 FINDINGS: Right lower extremity venous system was interrogated with Doppler technique. Normal flow, compressibility and augmentation was noted. There is no DVT present. IMPRESSION: No evidence of right lower extremity deep venous thrombosis.
[2020-02-18] MEDS ORDERED: MORPHINE 2 MG/ML SYR ONE (17:00)
[2020-02-18 17:02] LABS: Absolute Lymphocytes (CBC) 0.2 K/uL (0.7-4.9); Basophils % 0.2 % (0-1.3); Lymphocytes % 1.6 % (15.3-44.8); MPV 8.4 fL (7.6-11.3); RBC Red Blood Cell Count 4.72 M/uL (4.33-5.43)
[2020-02-18 17:06] LABS: Protime INR 1.02
[2020-02-18 17:23] LABS: ALT/SGPT 24 U/L (12-78); AST/SGOT 19 U/L (15-37); Albumin 3.5 g/dL (3.4-5.0); Alkaline Phosphatase 95 U/L (45-117); BUN Blood Urea Nitrogen 13 mg/dL (7-18); Bicarbonate 23 mmol/L (21-32); Bilirubin Direct 0.3 mg/dL (0-0.2); C-Reactive Protein 8.94 mg/L (<3.00); Creatine Phosphokinase 127 U/L (39-308); Glucose Level 106 mg/dL (74-106); Lipase 83 U/L (73-393); Potassium 3.3 mmol/L (3.5-5.1); Protein, Total 7.3 g/dL (6.4-8.2); Sodium Level 140 mmol/L (136-145); Troponin (Emerg Dept Use Only) < 0.02 ng/mL (0.0-0.045)
--- NOTE | 2020-02-18 17:43 | RAD REPORT ---
EXAM DESCRIPTION: RAD - Chest Single View - 02/18/2020 5:07 pm CLINICAL HISTORY: FEVER Chest pain. COMPARISON: Chest Single View dated 11/10/2019; Chest Single View dated 11/05/2019; Chest Single View d ated 02/17/2018; CHEST PA AND LAT 2 VIEW dated 09/23/2013 FINDINGS: Portable technique limits examination quality. The lungs are underinflated resulting in vascular crowding. Mild linear atelectasis is present in the medial left lung base. The heart is mildly enlarged in size. No displaced fractures.
--- NOTE | 2020-02-18 18:18 | EDPHYS ---
Physician Documentation [facility] Name: Hosea Manriquez Age: 65 yrs Sex: Male : 1955 Arrival Date: 02/18/2020 Time: 15:14 Bed 8 Private MD: ED Physician Mohit Linares HPI: 02/17 15:40 This 65 yrs old Male presents to ER via EMS with complaints of Pain and cp Swelling Right Leg. 15:40 The patient presents with pain, that is acute, swelling, tenderness. The complaints cp affect the right leg. Context: resulted from an unknown cause. Onset: The symptoms/episode began/occurred this morning. 15:40 Associated signs and symptoms: Pertinent positives: fever. The patient has experienced cp similar episodes in the past, a few times. Historical: - Allergies: 15:15 Benadryl; ss 15:15 Codeine; ss 15:15 PENICILLINS; ss - PMHx: 15:15 Chronic headaches; High Cholesterol; Hypertension; Polio; SCIATIC NERVE PAIN; ss - PSHx: 15:15 Knee surgery; foot surgery; ss - Immunization history:: Adult Immunizations unknown. - Social history:: Smoking status: Patient denies any tobacco usage or history of. ROS: 15:43 Constitutional: Positive for chills, fever, Negative for body aches, poor PO intake. cp 15:43 Eyes: Negative for injury, pain, redness, and discharge. cp 15:43 Cardiovascular: Negative for chest pain. 15:43 Respiratory: Negative for cough, shortness of breath, wheezing. 15:43 Abdomen/GI: Negative for abdominal pain, nausea, vomiting, and diarrhea. 15:43 MS/extremity: Positive for erythema, pain, swelling, tenderness, of the right leg, Negative for injury or acute deformity. 15:43 Neuro: Negative for altered mental status, headache, weakness. 15:43 All other systems are negative. Exam: 15:45 Constitutional: The patient appears in no acute distress, alert, awake, cp non-diaphoretic, non-toxic, well developed, well nourished. 15:45 Head/Face: Normocephalic, atraumatic. cp 15:45 Eyes: Periorbital structures: appear normal, Conjunctiva: normal, no exudate, no injection, Sclera: no appreciated abnormality, Lids and lashes: appear normal, bilaterally. 15:45 ENT: External ear(s): are unremarkable, Nose: is normal, Mouth: Lips: moist, Oral mucosa: moist, Posterior pharynx: Airway: no evidence of obstruction, patent. 15:45 Neck: ROM/movement: is normal, is supple, without pain, no range of motions limitations, no meningismus. 15:45 Chest/axilla: Inspection: normal, Palpation: is normal, no crepitus, no tenderness. 15:45 Cardiovascular: Rate: normal, Rhythm: regular. 15:45 Respiratory: the patient does not display signs of respiratory distress, Respirations: normal, no use of accessory muscles, no retractions, labored breathing, is not present, Breath sounds: are clear throughout, no decreased breath sounds. 15:45 Abdomen/GI: Inspection: abdomen appears normal, Palpation: abdomen is soft and non-tender, in all quadrants. 15:45 Back: pain, is absent. 15:45 Skin: cellulitis, that is moderate, well demarcated, on the right leg. 15:45 Neuro: Orientation: to person, place \T\ time. Mentation: is normal. 19:37 ECG was reviewed by the Attending Physician. Vital Signs: 15:16 BP 154 / 84; Pulse 87; Resp 18; Temp 101.9(O); Pulse Ox 100% on R/A; Weight 68.04 kg; ph 17:08 BP 121 / 75; Pulse 79; Resp 18; Pulse Ox 98% on R/A; ph 17:52 BP 121 / 71; Pulse 77; Resp 18; Temp 99.0; Pulse Ox 98% on R/A; ph 18:48 BP 118 / 71; Pulse 73; Resp 16; Pulse Ox 98% on R/A; ph 19:17 BP 101 / 64; Pulse 78; Resp 18; Temp 98.5(O); Pulse Ox 98% on R/A; lp1 MDM: 15:35 Patient medically screened. cp 17:19 Physician consultation: A Brandi REDMAN was called at 17:19, was contacted at 17:19, will cp call back to discuss patient. 17:20 Data reviewed: vital signs, nurses notes, lab test result(s), EKG, radiologic studies, cp plain films, ultrasound, and as a result, I will admit patient. 18:18 Physician consultation: A Brandi REDMAN was called at 18:18, left message on voicemail. cp 02/17 15:39 Order name: C-Reactive Protein cp 02/17 15:39 Order name: Urine Culture cp 02/17 15:39 Order name: Sed Rate cp 02/17 15:39 Order name: Basic Metabolic Panel cp 02/17 15:39 Order name: Blood Culture Adult (2) cp 02/17 15:39 Order name: CBC with Diff cp 02/17 15:39 Order name: CPK cp 02/17 15:39 Order name: Lactate cp 02/17 15:39 Order name: LFT's cp 02/17 15:39 Order name: Lipase cp 02/17 15:39 Order name: Procalcitonin cp 02/17 15:39 Order name: Protime (+inr) cp 02/17 15:39 Order name: Ptt, Activated cp 02/17 15:39 Order name: Troponin (emerg Dept Use Only) cp 02/17 15:39 Order name: Urine Microscopic Only cp 02/17 15:39 Order name: Chest Single View XRAY cp 02/17 15:39 Order name: US Extremity Venous Unilateral Ltd 02/17 16:38 Order name: US; Complete Time: 16:40 EDMS 02/17 16:40 Interpretation: Report reviewed. 02/17 17:04 Order name: CBC with Automated Diff EDMS 02/17 17:17 Interpretation: Normal except: WBC 11.6; HGB 13.0; MAURA% 96.2; LYM% 1.6; MN% 2.0; NEUT A cp 11.1; LYMA 0.2. 02/17 17:06 Order name: Protime (+INR); Complete Time: 17:17 EDMS 02/17 17:06 Order name: PTT, Activated Partial Thromb; Complete Time: 17:17 EDMS 02/17 17:18 Order name: Lactate; Complete Time: 17:40 EDMS 02/17 17:24 Order name: Basic Metabolic Panel; Complete Time: 17:40 EDMS 02/17 17:41 Interpretation: Normal except: K 3.3; CA 8.1. cp 02/17 17:24 Order name: Liver (Hepatic) Function; Complete Time: 17:40 EDMS 02/17 17:41 Interpretation: Normal except: BILID 0.3; GLOB 3.8; A/G 0.9. cp 02/17 17:24 Order name: Creatine Phosphokinase; Complete Time: 17:40 EDMS 02/17 17:24 Order name: Troponin (Emerg Dept Use Only); Complete Time: 17:40 EDMS 02/17 17:24 Order name: C-Reactive Protein; Complete Time: 17:40 EDMS 02/17 17:41 Interpretation: Abnormal: C-REACTIVE PROT 8.94. cp 02/17 17:24 Order name: Lipase; Complete Time: 17:40 EDMS 11 17:34 Order name: Sedimentation Rate, [place] EDMS 02/17 17:39 Order name: Urine Dipstick--Ancillary (enter results) bd 02/17 15:39 Order name: Accucheck; Complete Time: 17:04 cp 02/17 15:39 Order name: Cardiac monitoring; Complete Time: 17:04 cp 02/17 15:39 Order name: EKG - Nurse/Tech; Complete Time: 19:31 cp 02/17 15:39 Order name: IV Saline Lock - Large Bore; Complete Time: 17:04 cp 02/17 15:39 Order name: Labs collected and sent; Complete Time: 17:04 cp 02/17 15:39 Order name: O2 Per Protocol; Complete Time: 16:38 cp 02/17 15:39 Order name: O2 Sat Monitoring; Complete Time: 16:38 cp 02/17 15:39 Order name: Urine Dipstick-Ancillary (obtain specimen); Complete Time: 18:52 cp 02/17 17:44 Order name: RAD EDMS EC:37 Rate is 76 beats/min. Rhythm is regular. [place] interval is normal. QRS interval is normal. cp QT interval is normal. T waves are Inverted in lead aVR. Interpreted by me. Reviewed by me. Administered Medications: 16:15 Drug: Acetaminophen 1000 mg Route: PO; ph 17:08 Follow up: Response: No adverse reaction ph 16:45 Drug: NS 0.9% 1000 ml Route: IV; Rate: 1000 ml/hr; Site: right forearm; ph 18:47 Follow up: Response: No adverse reaction; IV Status: Completed infusion; IV Intake: ph 1000ml 16:55 Drug: morphine 2 mg Route: IVP; Site: right forearm; ph 17:08 Follow up: Response: No adverse reaction ph 17:01 Drug: Cefepime 1 grams Route: IVPB; Rate: 200 ml/hr; Infused Over: 30 mins; Site: right ph forearm; 17:35 Follow up: Response: No adverse reaction; IV Status: Completed infusion ph 17:46 Drug: vancoMYCIN 1 grams Route: IVPB; Infused Over: 2 hrs; Site: right forearm; ph 19:17 Follow up: IV Status: Completed infusion lp1 19:17 Drug: LevaQUIN 500 mg Volume: 100 ml; Route: IVPB; Infused Over: 60 mins; Site: right lp1 forearm; 19:53 Follow up: IV Status: Infusion continued upon admission lp1 Disposition: 02/18/20 18:17 Hospitalization ordered by Antonia Paz for Inpatient Admission. Preliminary diagnosis is Cellulitis of right lower limb. - Bed requested for Telemetry/MedSurg (Inpatient). - Status is Inpatient Admission. lp1 - Condition is Stable. - Problem is new. - Symptoms have improved. Signatures: Dispatcher [employer] EDOR Mica Wheatley RN RN Malissa Gupta RN RN lp1 Pilar Sharp RN RN ph Kang Handy, PA PA cp Tia Escobedo RN RN cg Corrections: (The following items were deleted from the chart) 17:41 17:41 Normal except: K 3.3. cp cp 19:02 18:17 Hospitalization Ordered by A Brandi REDMAN for Inpatient Admission. Preliminary cg diagnosis is Cellulitis of right lower limb. Bed requested for Telemetry/MedSurg (Inpatient). Status is Inpatient Admission. Condition is Stable. Problem is new. Symptoms have improved. cp 19:52 19:02 02/18/2020 18:17 Hospitalization Ordered by A Brandi REDMAN for Inpatient Admission. lp1 Preliminary diagnosis is Cellulitis of right lower limb. Bed requested for Telemetry/MedSurg (Inpatient). Status is Inpatient Admission. Condition is Stable. Problem is new. Symptoms have improved. cg 02/18 02:53 02/17 18:00 Data reviewed: vital signs, nurses notes, lab test result(s), EKG, cp radiologic studies, plain films, ultrasound, and as a result, I will admit patient, cp
--- NOTE | 2020-02-18 18:18 | ER ---
Nurse's Notes [facility] Name: Hosea Manri[facility] Age: 65 yrs Sex: Male : 1955 Arrival Date: 02/18/2020 Time: 15:14 Bed 8 Private MD: Diagnosis: Cellulitis of right lower limb Presentation: 02/17 15:16 Chief complaint: EMS states: Cellulitis to R foot/ankle that has been ongoing, recently ph d/c from hospital for same issue, after d/c swelling and redness returned, reports pain radiating up to groin, hx of polio. Coronavirus screen: Client denies travel out of the [place] in the last 14 days. At this time, the client does not indicate any symptoms associated with coronavirus-19. Ebola Screen: No symptoms or risks identified at this time. Initial Sepsis Screen: Does the patient meet any 2 criteria? No. Patient's initial sepsis screen is negative. Does the patient have a suspected source of infection? Yes: Other: cellulitus. Risk Assessment: Do you want to hurt yourself or someone else? Patient reports no desire to harm self or others. Onset of symptoms was February 18, 2020. 15:16 Method Of Arrival: EMS: [facility] ph 15:16 Acuity: SABAS 3 ph Historical: - Allergies: 15:15 Benadryl; ss 15:15 Codeine; ss 15:15 PENICILLINS; ss - PMHx: 15:15 Chronic headaches; High Cholesterol; Hypertension; Polio; SCIATIC NERVE PAIN; ss - PSHx: 15:15 Knee surgery; foot surgery; ss - Immunization history:: Adult Immunizations unknown. - Social history:: Smoking status: Patient denies any tobacco usage or history of. Screenin:23 Abuse screen: Denies threats or abuse. Denies injuries from another. Nutritional ph screening: No deficits noted. Tuberculosis screening: No symptoms or risk factors identified. Fall Risk No fall in past 12 months (0 pts). Secondary diagnosis (15 points) impaired mobility, No IV (0 pts). Ambulatory Aid- None/Bed Rest/Nurse Assist (0 pts). Gait- Impaired (20 pts.). Mental Status- Oriented to own ability (0 pts). Total Tracey Fall Scale indicates High Risk Score (45 or more points). Fall prevention measures have been instituted. Side Rails Up X 2 Frequent Obs/Assessments Occuring As available patient and family educated on Fall Prevention Program and Strategies. Assessment: 15:45 General: Appears in no apparent distress. comfortable, well groomed, Behavior is calm, ph cooperative, appropriate for age. Pain: Complains of pain in right leg. Neuro: Level of Consciousness is awake, alert, obeys commands, Oriented to person, place, time, situation. Cardiovascular: Capillary refill < 3 seconds in bilateral fingers Patient's skin is warm and dry. Pulses are palpable in right dorsalis pedis artery and left dorsalis pedis artery. Respiratory: Airway is patent Respiratory effort is even, unlabored, Respiratory pattern is regular, symmetrical, Denies cough, shortness of breath. GI: No signs and/or symptoms were reported involving the gastrointestinal system. Derm: Skin is intact, is healthy with good turgor, Skin is pink, warm \T\ dry. Musculoskeletal: Circulation, motion, and sensation intact. Range of motion: intact in all extremities, Swelling present in right ankle, foot and lower leg. 17:14 Reassessment: Patient appears in no apparent distress at this time. Patient and/or ph family updated on plan of care and expected duration. Pain level reassessed. Patient is alert, oriented x 3, equal unlabored respirations, skin warm/dry/pink. 17:51 Reassessment: Patient appears in no apparent distress at this time. Patient and/or ph family updated on plan of care and expected duration. Pain level reassessed. Patient is alert, oriented x 3, equal unlabored respirations, skin warm/dry/pink. 18:48 Reassessment: Patient appears in no apparent distress at this time. Patient and/or ph family updated on plan of care and expected duration. Pain level reassessed. Patient is alert, oriented x 3, equal unlabored respirations, skin warm/dry/pink. 19:18 Reassessment: Patient is alert, oriented x 3, equal unlabored respirations, skin lp1 warm/dry/pink. Reassessment: Patient aware of pending admission to floor. Derm: Skin is intact, Skin is dry, redness, edema noted to right lower leg. Vital Signs: 15:16 BP 154 / 84; Pulse 87; Resp 18; Temp 101.9(O); Pulse Ox 100% on R/A; Weight 68.04 kg; ph 17:08 BP 121 / 75; Pulse 79; Resp 18; Pulse Ox 98% on R/A; ph 17:52 BP 121 / 71; Pulse 77; Resp 18; Temp 99.0; Pulse Ox 98% on R/A; ph 18:48 BP 118 / 71; Pulse 73; Resp 16; Pulse Ox 98% on R/A; ph 19:17 BP 101 / 64; Pulse 78; Resp 18; Temp 98.5(O); Pulse Ox 98% on R/A; lp1 ED Course: 15:14 Patient arrived in ED. ss 15:23 Triage completed. ph 15:23 Arm band placed on Patient placed in an exam room, on a stretcher, on pulse oximetry. ph 15:24 Patient has correct armband on for positive identification. Bed in low position. Call ph light in reach. Side rails up X2. Pulse ox on. NIBP on. Door closed. Noise minimized. 15:27 Kang Handy PA is PHCP. cp 15:27 Mohit Linares MD is Attending Physician. cp 15:40 Pilar Sharp, KIRA is Primary Nurse. ph 16:03 Pilar Sharp RN is Primary Nurse. ph 16:40 Initial lab(s) drawn, by il, sent to lab. First set of blood cultures drawn. Inserted kj1 saline lock: 20 gauge in right wrist, using aseptic technique. Blood collected. 17:52 No provider procedures requiring assistance completed. ph 18:17 Antonia Paz MD is Hospitalizing Provider. cp 19:18 Patient admitted, IV remains in place. lp1 Administered Medications: 16:15 Drug: Acetaminophen 1000 mg Route: PO; ph 17:08 Follow up: Response: No adverse reaction ph 16:45 Drug: NS 0.9% 1000 ml Route: IV; Rate: 1000 ml/hr; Site: right forearm; ph 18:47 Follow up: Response: No adverse reaction; IV Status: Completed infusion; IV Intake: ph 1000ml 16:55 Drug: morphine 2 mg Route: IVP; Site: right forearm; ph 17:08 Follow up: Response: No adverse reaction ph 17:01 Drug: Cefepime 1 grams Route: IVPB; Rate: 200 ml/hr; Infused Over: 30 mins; Site: right ph forearm; 17:35 Follow up: Response: No adverse reaction; IV Status: Completed infusion ph 17:46 Drug: vancoMYCIN 1 grams Route: IVPB; Infused Over: 2 hrs; Site: right forearm; ph 19:17 Follow up: IV Status: Completed infusion lp1 19:17 Drug: LevaQUIN 500 mg Volume: 100 ml; Route: IVPB; Infused Over: 60 mins; Site: right lp1 forearm; 19:53 Follow up: IV Status: Infusion continued upon admission lp1 Intake: 18:47 IV: 1000ml; Total: 1000ml. ph Outcome: 18:17 Decision to Hospitalize by Provider. cp 19:18 Condition: stable lp1 19:18 Instructed on the need for admit. 19:45 Admitted to Med/surg accompanied by tech, room 225, with chart, Report called to [facility] KIRA teixeira 19:52 Patient left the ED. [facility] Signatures: Mica Wheatley RN RN Malissa Gupta RN RN [facility] Pilar Sharp RN RN ph Kang Handy PA PA cp Leyla Greenberg 1 Corrections: (The following items were deleted from the chart) 17:01 16:30 NS 0.9% 1000 ml IV at 1000 ml/hr in right forearm ph ph
[2020-02-18] MEDS ORDERED: MORPHINE 2 MG/ML SYR IV PRN (18:51)
[2020-02-18] MEDS ORDERED: ONDANSETRON 4 MG/2 ML VIAL IV PRN (18:51)
[2020-02-18] MEDS ORDERED: Pharmacy Consult 1 EA XX PRN (18:55)
[2020-02-18] MEDS: Levofloxacin500mg IV 500 MG/100 ML BAG IV SCH (19:00)
[2020-02-18] MEDS ORDERED: VANCOMYCIN/NS 1 gm 1 GM/250 ML BAG IVPB SCH (19:00)
[2020-02-18] MEDS ORDERED: VANCOMYCIN 1.25 GM in NA CHLORIDE 0.9% 250 ML IVPB SCH (21:00)
[2020-02-18 21:06] LABS: Urine Bacteria 20-50 /HPF (NONE SEEN); Urine Culture Reflex Order NOT NEEDED
[2020-02-18 21:07] LABS: Urine Amorphous Sediment 1+ /HPF (NONE SEEN); Urine Mucus 3+ /HPF (NONE SEEN)
[2020-02-18 21:10] LABS: Urine Blood TRACE (NEG); Urine Glucose NEGATIVE (NEG); Urine Protein NEGATIVE (NEG); Urine Specific Gravity 1.025 (1.005-1.030); Urine pH 5.5 (5.0-7.0)
[2020-02-18] MEDS: NA CHLORIDE 0.9% 1,000 ML IV SCH (21:14)
[2020-02-18 21:26] LABS: Blood Morphology Comment NOT SEEN (NOT SEEN); Platelet Estimate ADEQ; Urine White Blood Cell Casts OK
[2020-02-19 00:26] VITALS: BMI 27.8
[2020-02-19 04:14] LABS: Absolute Lymphocytes (CBC) 0.2 K/uL (0.7-4.9); Basophils % 0.1 % (0-1.3); Hematocrit 38.5 % (39.6-49.0); Lymphocytes % 1.1 % (15.3-44.8); MPV 8.4 fL (7.6-11.3); RBC Red Blood Cell Count 4.54 M/uL (4.33-5.43)
[2020-02-19 04:18] LABS: BUN Blood Urea Nitrogen 14 mg/dL (7-18); Bicarbonate 23 mmol/L (21-32); Glucose Level 94 mg/dL (74-106); Potassium 3.7 mmol/L (3.5-5.1); Sodium Level 140 mmol/L (136-145)
[2020-02-19] MEDS ORDERED: NA CHLORIDE 0.9% 0 ML ONE (04:54)
[2020-02-19] MEDS ORDERED: NA CHLORIDE 0.9% 250 ML ONE (04:58)
[2020-02-19] MEDS ORDERED: VANCOMYCIN 1 GM/VIAL ONE (04:58)
[2020-02-19] MEDS: VANCOMYCIN 1.25 GM in NA CHLORIDE 0.9% 250 ML IVPB SCH ×2 (05:08→18:22)
[2020-02-19] MEDS: NA CHLORIDE 0.9% 1,000 ML IV SCH ×2 (05:10→15:00)
[2020-02-19] MEDS: ACETAMINOPHEN 500 MG TAB PO PRN ×3 (06:22→20:46)
[2020-02-19] MEDS: lisinopriL 20 MG TAB PO SCH (08:27)
[2020-02-19] MEDS: ENOXAPARIN 40 MG/0.4 ML SQ SCH (08:27)
[2020-02-19] MEDS: ASPIRIN PO SCH ×3 (08:28→21:00)
[2020-02-19] MEDS: CAFFEINE PO SCH ×3 (08:28→21:00)
[2020-02-19] MEDS: ATORVASTATIN 10 MG TAB PO SCH (21:01)
[2020-02-19] MEDS: Levofloxacin500mg IV 500 MG/100 ML BAG IV SCH (21:01)
[2020-02-19] MEDS ORDERED: IBUPROFEN 400 MG TAB PO ONE (21:28)
[2020-02-20] MEDS: NA CHLORIDE 0.9% 1,000 ML IV SCH ×4 (01:00→17:14)
--- NOTE | 2020-02-20 05:52 | HP ---
Date of Admission: 02/18/2020 Chief Complaint: Redness of leg and pain in leg. History Of Present Illness: This is a 65-year-old very pleasant male patient, who had cellulitis of right lower extremity about month to 2 months ago or so. The patient was treated in the hospital wit h IV antibiotics and he responded well to IV Levaquin and IV vancomycin and he was discharged to go [facility] with IV vancomycin and oral Levaquin. The patient received this antibiotic at home with PICC osmany mas. His cellulitis problem completely recovered and he was doing fine until yesterday. He called off ice that he started to have fever, chills, and redness of right lower extremity and he was asked to c ome to emergency room. After he was evaluated, he was admitted to the hospital with recurrent cellul itis of right lower extremity. The patient reports that ever since his last episode of cellulitis, jessica mas continued to have swelling of right leg. His leg swelling would go away overnight, but as the day progresses, he would notice his leg swelling and his leg swelling has gotten worse as of last day or so and redness of right lower extremity and pain in the right leg started yesterday. Denies any shor tness of breath, nausea, vomiting. Allergies: TO PENICILLIN, TRAMADOL, CODEINE, AND BENADRYL. Medications: List reviewed. Review of Systems: Constitutional: As mentioned above. Dermatology: As mentioned above. Musculoskeletal: As mentioned above. 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 Past Medical History: Significant for allergic rhinitis, mild intermittent asthma, hypertension, hyp erlipidemia, gastroesophageal reflux disease, anxiety, post-polio syndrome, and cellulitis of right l ower extremity for which he was admitted to the hospital on November 05, 2019. Past Surgical History: Cervical spine surgery, knee surgery, multiple leg surgeries due to polio. Family History: Father had coronary artery disease. Mother hypertension, hyperlipidemia. Social History: Negative for smoking and alcohol use. Physical Examination: Vital Signs: When he came into emergency room, weight 68.04 kg, 100% oxygen saturation, his temperat ure was 101.9 in the emergency room with respiratory rate 18, pulse 87, blood pressure 154/84. General: Awake, alert, oriented, not in distress. HEENT: Head atraumatic, normocephalic. Conjunctivae nonerythematous. Sclerae white. Mouth, no thr ush or edema noted. Ears/Nose, no mass, lesion, discharge noted. Neck: Supple. No JVD, lymph nodes, bruit, thyromegaly noted. Lungs: Bilateral good equal air entry. Clear to auscultation. No rhonchi. No rales. Heart: Normal heart sounds, no murmur or gallop. Abdomen: Soft, bowel sounds normal. No guarding, rigidity, tenderness, mass, hepatosplenomegaly, dis tention, or bruit noted. Extremities: No calf tenderness. Right lower extremity has pink, warm skin involving lower 1/3rd of right medial thigh and diffuse redness over right lower extremity between right knee and toes on the right leg. No open wound. Right lower extremity has about grade 2 pedal edema. Skin: No rash, ulcer, cellulitis. Lymphatics: No lymph node enlargement in neck, supraclavicular, infraclavicular region. Neuro: CHIEF DOG LICENSE INSPECTOR exam, weakness of both lower extremities, which is chronic due to post-polio syndrome. Chest: Unremarkable. External Genitalia: Deferred. Rectal: Deferred. Laboratory Data: Yesterday, white count 11.6, hemoglobin 13, platelets . This morning, wh ite count 14.4, hemoglobin 12.6, and platelets 231. Yesterday, sodium 140, potassium 3.3, chloride 1 07, bicarb 23, BUN 13, creatinine 0.71, glucose 106. Lactic acid 1.3. Procalcitonin 2.57. Liver fu nction tests unremarkable. This morning, sodium 140, potassium 3.7, chloride 109, bicarb 23, BUN 14, creatinine 0.67, glucose 94. Venous Doppler of right lower extremity was negative for any acute DVT . Impression: 1.Right leg cellulitis. 2.Rule out sepsis. 3.Anemia. 4.Hypokalemia. 5.Hypertension. 6.Hyperlipidemia. 7.Mild intermittent asthma. 8.Allergic rhinitis. 9.Post-polio syndrome. Plan: Admit the patient to hospital for further evaluation and management of this problem. The allie ent is appropriate for inpatient and is expected to spend 2 midnights in hospital. Home medications will be continued. We will give him IV Levaquin, IV vancomycin. Follow up on culture results and we will consult Social Service to assist with home IV antibiotic arrangements and PICC line was ordered . Details on plan of treatment discussed with the patient. The patient was also advised that once jessica mas recovers from this cellulitis problem, he should follow up at [facility] as I suspect that jessica mas has some lymphedema problem and lymphedema evaluation and therapy will be beneficial to him to see if that helps reduce any chances of recurrent cellulitis. JG/KRISTY Voice ID: [id number]
[2020-02-20] MEDS: VANCOMYCIN 1.25 GM in NA CHLORIDE 0.9% 250 ML IVPB SCH ×2 (06:04→17:15)
--- NOTE | 2020-02-20 07:30 | EKG ---
Test Date: 2020-02-18 Test Time: 19:27:42 Dicer Operator: BAYRON MEASUREMENT RESULTS: Intervals: Rate: 76 SD: 168 QRSD: 78 QT: 360 QTc: 405 [place]: P: 101 SD: 168 QRS: 21 T: 15 INTERPRETIVE STATEMENTS: Normal sinus rhythm Normal ECG Compared to ECG 02/17/2018 13:32:06 No significant changes Electronically Signed On 02-20-20 07:28:46 CDT by Albert Burton
[2020-02-20] MEDS ORDERED: FUROSEMIDE 20 MG/ 2ML VIAL IV ONE (07:54)
[2020-02-20] MEDS ORDERED: POTASSIUM CL SA 10 MEQ TAB PO ONE (07:55)
[2020-02-20] MEDS: ENOXAPARIN 40 MG/0.4 ML SQ SCH (08:12)
[2020-02-20] MEDS: ASPIRIN PO SCH ×3 (08:15→20:05)
[2020-02-20] MEDS: CAFFEINE PO SCH ×3 (08:15→20:05)
[2020-02-20] MEDS: ACETAMINOPHEN 500 MG TAB PO PRN ×2 (11:57→20:03)
--- NOTE | 2020-02-20 12:21 | RAD REPORT ---
EXAM DESCRIPTION: RAD - Chest Single View - 02/20/2020 12:19 am CLINICAL HISTORY: The patient is 65 years old and is Male; PICC line placement TECHNIQUE: Frontal view of the chest. COMPARISON: Chest radiograph November 10, 2019 FINDINGS: LUNGS: Unremarkable. No consolidation. PLEURAL SPACE: Unremarkable. No pneumothorax. HEART: Unremarkable. No cardiomegaly. MEDIASTINUM: Unremarkable. BONES/JOINTS: Scoliotic curvature of the spine is present. TUBES, LINES AND DEVICES: A right upper extremity PICC is present with the tip just proximal to the SVC/RA junction. IMPRESSION: A right upper extremity PICC is present with the tip just proximal to the SVC/RA juncti on. Electronically signed by: Emeli Walsh MD 02/20/2020 12:27 AM CDT Due to temporary technical issues with the PACS/Fluency reporting system, reports are being signed by the in house radiologist without review as a courtesy to ensure prompt reporting. The interpreting r adiologist is fully responsible for the content of the report.
[2020-02-20] MEDS: Levofloxacin500mg IV 500 MG/100 ML BAG IV SCH (20:03)
[2020-02-20] MEDS: ATORVASTATIN 10 MG TAB PO SCH (20:03)
--- NOTE | 2020-02-21 01:15 | PN ---
Date of Progress Note: 02/20/2020 Subjective: The patient was seen this morning for followup. No new complaints or problems reported by him. Last night, his temperature spiked up to 104.3 and it did come down with Tylenol, Motrin, an d shower. Overnight, his vital signs remained stable. This morning, besides right leg swelling and pain in his right leg, he did not have any other specific complaints. Objective: VITAL SIGNS: Reviewed. HEENT: Unremarkable. LUNGS: Clear to auscultation. CARDIAC: Heart sounds normal. ABDOMEN: Soft. Bowel sounds normal. No guarding, rigidity, tenderness, or distention. EXTREMITIES: Right leg skin present distribution curran, it is now extending to the proximal right ant eromedial thigh, knee, and foot. He has this redness which has remained unchanged from yesterday. Laboratory Data: Creatinine today is 0.6. Impression: 1.Cellulitis, right leg. 2.Rule out sepsis. 3.Hypertension. 4.Hyperlipidemia. Plan: Levaquin and vancomycin. Pharmacy is managing vancomycin dosing. PICC line is in place in the right arm and I will see him tomorrow for followup. We will repeat blood work tomorrow and possible discharge to go home in next 1 or 2 days depending on his condition. Details of plan of sayda atment discussed with him. JG/MODL Voice ID: [id number] Report ID: [id number]
[2020-02-21] MEDS: VANCOMYCIN 1.25 GM in NA CHLORIDE 0.9% 250 ML IVPB SCH ×2 (05:07→18:44)
[2020-02-21] MEDS: NA CHLORIDE 0.9% 1,000 ML IV SCH ×2 (05:12→07:00)
[2020-02-21 06:04] LABS: BUN Blood Urea Nitrogen 13 mg/dL (7-18); Bicarbonate 19 mmol/L (21-32); Glucose Level 81 mg/dL (74-106); Magnesium 1.7 mg/dL (1.8-2.4); Sodium Level 140 mmol/L (136-145)
[2020-02-21 06:06] LABS: Potassium 2.9 mmol/L (3.5-5.1)
[2020-02-21 06:21] LABS: Absolute Lymphocytes (CBC) 0.4 K/uL (0.7-4.9); Basophils % 0.4 % (0-1.3); Lymphocytes % 4.5 % (15.3-44.8); MPV 9.1 fL (7.6-11.3); RBC Red Blood Cell Count 3.94 M/uL (4.33-5.43)
[2020-02-21] MEDS ORDERED: KCL 20 MEQ/100 mL IVPB 20 MEQ/100 ML BAG IV SCH (07:00)
[2020-02-21] MEDS ORDERED: POTASSIUM 25 MEQ EFFERV TAB PO ONE (08:00)
[2020-02-21] MEDS: ENOXAPARIN 40 MG/0.4 ML SQ SCH (08:15)
[2020-02-21] MEDS: lisinopriL 20 MG TAB PO SCH (08:15)
[2020-02-21] MEDS: ASPIRIN PO SCH ×3 (08:16→20:52)
[2020-02-21] MEDS: CAFFEINE PO SCH ×3 (08:16→20:52)
[2020-02-21] MEDS ORDERED: MAGNESIUM SULFATE 1 gm IVPB 1 GM/100 ML BAG IV ONE (09:00)
[2020-02-21 09:32] LABS: Platelet Estimate ADEQ; Urine White Blood Cell Casts OK
[2020-02-21 09:33] LABS: Blood Morphology Comment NOT SEEN (NOT SEEN)
[2020-02-21] MEDS: ACETAMINOPHEN 500 MG TAB PO PRN (17:35)
[2020-02-21] MEDS ORDERED: POTASSIUM CL SA 10 MEQ TAB PO ONE (18:00)
--- NOTE | 2020-02-21 18:18 | PN ---
Date of Progress Note: 02/21/2020 Subjective: The patient was seen this morning for followup. No new complaints problems reported by patient. Objective: Vital Signs: Reviewed. HEENT: Examination unremarkable. Lungs: Clear to auscultation. Heart: Sounds normal. Abdomen: Soft. Bowel sounds normal. No guarding, rigidity, tenderness, distention. Extremities: Right leg edema is slightly better today compared to yesterday. Redness from right upp er medial thigh is better today. Redness from right lower leg between knee and toes is better, and I see some brownish discoloration in certain areas instead of pink discoloration of the skin. No open wound. No blister or any signs of any fluid collection. Laboratory Data: White count 9.9, hemoglobin 11.2, platelets 166. Sodium 140, potassium 2.9, chlori de 109, bicarb 19, BUN 13, creatinine 0.50, glucose 81, magnesium 1.7. Impression: 1.Cellulitis, right leg. 2.Hypokalemia. 3.Anemia. 4.Hypertension. 5.Hypomagnesemia. Plan: We will continue current antibiotic. So far, the patient's blood culture has remained negativ e. We will continue vancomycin and Levaquin. Replace electrolytes per protocol and we will repeat b adaffix work tomorrow morning. We will request Social Service to make arrangements for vancomycin 1 g I V every 12 hours for 10 days and we will consider possible discharge tomorrow depending on his condit ion. Patient is currently on IV Levaquin upon discharge. We will change it to oral Levaquin. JG/MODL Voice ID: [id number] Report ID: [id number]
[2020-02-21] MEDS: Levofloxacin500mg IV 500 MG/100 ML BAG IV SCH (18:44)
[2020-02-21] MEDS: ATORVASTATIN 10 MG TAB PO SCH (20:50)
[2020-02-22] MEDS: VANCOMYCIN 1.25 GM in NA CHLORIDE 0.9% 250 ML IVPB SCH ×2 (05:04→17:53)
[2020-02-22 05:28] LABS: BUN Blood Urea Nitrogen 9 mg/dL (7-18); Bicarbonate 24 mmol/L (21-32); Glucose Level 104 mg/dL (74-106); Potassium 3.5 mmol/L (3.5-5.1); Sodium Level 141 mmol/L (136-145)
[2020-02-22] MEDS ORDERED: POTASSIUM CL SA 10 MEQ TAB PO ONE (06:00)
[2020-02-22] MEDS: CAFFEINE PO SCH ×3 (09:00→20:23)
[2020-02-22] MEDS: ASPIRIN PO SCH ×3 (09:00→20:23)
--- NOTE | 2020-02-22 09:07 | PN ---
Date of Progress Note: 02/22/2020 Subjective: The patient was seen this morning for followup. No new complaints or problems reported by the patient except during nighttime, he did have temperature spike of 102 degrees Fahrenheit and d uring daytime, his temperature was okay. This morning, his temperature were normal as well. Objective: Vital Signs: Reviewed. HEENT: Unremarkable. Lungs: Clear to auscultation. Heart: Sounds normal. Abdomen: Soft. Bowel sounds normal. No guarding, rigidity, tenderness, or distention. Extremities: Right leg edema remains unchanged from yesterday. [place] discoloration of the skin from thigh has almost completely resolved, so that is significantly better, but in the middle part of the right leg between knee and ankle, center 2/3rd of the leg has pink skin, no blister. This is mostly in the anterior aspect and some in the lateral aspect. The intensity of pink discoloration of the sk in is more today than yesterday. As yesterday, he was noted to have more brownish colored, but today it appears to be worse with more pink discoloration, warm to touch. Foot and toes pink discoloratio n appear significantly better than before. Laboratory Data: Sodium 141, potassium 3.5, chloride 111, bicarb 24, BUN 9, creatinine 0.48, glucose 104. Magnesium 2. Blood culture remains negative. COVID-19 test negative. Impression: 1.Cellulitis, right leg. 2.Right leg edema. 3.Hypokalemia. 4.Hypomagnesemia. 5.Hypertension. Plan: The patient is on vancomycin and Levaquin, and he was improving up as noted on a day-to-day ba sis so far, but between yesterday and today, I feel like that right leg cellulitis appears worse toda y compared to yesterday in terms of more intense redness in certain area, but rest of the area of tran lulitis from the thigh has resolved; from the foot, it has resolved also. Our plan is to send him ho me with IV vancomycin and oral Levaquin, but considering he still continues to have temperature spike , I do not feel comfortable him going home yet at this point. When I started telling him about that, he got very upset at me and I informed him that we need to make sure that he does not keep on having this temperature spikes that he has been having at nighttime before we plan to discharge him and bec ean he was so upset at me, I also asked him if he wants me to transfer care to somebody else, esther r physician, I can make that arrangements and he did not want me to do that. So, we will continue to look after him. I will request Infectious Disease consultation from Dr. Kwok. We will repeat blo od work tomorrow morning. JG/MODL Voice ID: [id number] Report ID: [id number]
[2020-02-22] MEDS: ENOXAPARIN 40 MG/0.4 ML SQ SCH (09:39)
[2020-02-22] MEDS: lisinopriL 20 MG TAB PO SCH (09:39)
[2020-02-22] MEDS: ACETAMINOPHEN 500 MG TAB PO PRN (12:40)
[2020-02-22] MEDS ORDERED: LOPERAMIDE HCL 2 MG CAPSULE PO PRN (16:06)
[2020-02-22] MEDS: Levofloxacin500mg IV 500 MG/100 ML BAG IV SCH (19:33)
[2020-02-22] MEDS: ATORVASTATIN 10 MG TAB PO SCH (20:21)
[2020-02-22 21:33] VITALS: O2SAT 98
[2020-02-23 05:53] LABS: BUN Blood Urea Nitrogen 6 mg/dL (7-18); Bicarbonate 21 mmol/L (21-32); Glucose Level 76 mg/dL (74-106); Magnesium 1.9 mg/dL (1.8-2.4); Potassium 3.5 mmol/L (3.5-5.1); Sodium Level 140 mmol/L (136-145)
[2020-02-23 06:04] LABS: Basophils % 0.4 % (0-1.3); Hematocrit 34.2 % (39.6-49.0); Lymphocytes % 11.5 % (15.3-44.8); MPV 8.6 fL (7.6-11.3); RBC Red Blood Cell Count 4.11 M/uL (4.33-5.43)
[2020-02-23] MEDS: VANCOMYCIN 1.25 GM in NA CHLORIDE 0.9% 250 ML IVPB SCH (06:17)
[2020-02-23] MEDS ORDERED: POTASSIUM CL SA 10 MEQ TAB PO ONE (08:00)
[2020-02-23] MEDS: ENOXAPARIN 40 MG/0.4 ML SQ SCH (08:46)
[2020-02-23] MEDS: lisinopriL 20 MG TAB PO SCH (08:47)
[2020-02-23] MEDS: CAFFEINE PO SCH (08:48)
[2020-02-23] MEDS: ASPIRIN PO SCH (08:48)
[2020-02-23 09:03] VITALS: BP 144/78; TEMP 98.4
[2020-02-23] MEDS: Levofloxacin500mg IV 500 MG/100 ML BAG IV SCH (11:03)
[2020-02-23 11:20] LABS: C.diff Antigen/Toxin Ag neg : Tox neg (NEG : NEG)
--- NOTE | 2020-02-23 12:25 | DS ---
Date of Discharge: 02/23/2020 History Of Present Illness: The patient was evaluated via tele visit today. He was lying in bed, no t in distress. Denied any complaints. Overall feeling a lot better than yesterday. His leg is look ing better as he reported and his nursing staff reported as well, as it was evaluated through this te le video visit. His maximum temperature was 99.5 degrees Fahrenheit during daytime yesterday. Overn ight, his temperature has remained normal. This morning, last temperature 98.4, pulse 76, respirator y rate 16, blood pressure 144/78. Laboratory Data: Last white count today 8.8, hemoglobin 11.6, platelets 215. Upon admission, white count 11.6, hemoglobin 13, platelets 312. Highest white count 14.4 on February 18 and then on February 07, it came down to 9.9 and today 8.8. His last chemistry today; sodium 140, potassium 3.5, chloride 107, bicarb 21, BUN 6, creatinine 0.45, glucose 76, magnesium 1.9. His potassium was 2.9 with magnes ium 1.7 on 02/21/2020. Procalcitonin upon admission was 2.57. Lactic acid 1.3. Stool C diff is pen ding. Physical Examination: The patient was evaluated via tele visit, which included audio and video component and he was not in any distress, denied any complaints. He had some diarrhea yesterday, which is nothing new for him as he reports, at home, he has that off and on and he manages it with Imodium, which is his chronic [place] oing problem for many years. His right leg appears better today than yesterday. No redness from thi gh. Area of redness from right leg between knee and ankle is less intense today compared to yesterda y. No new concern. Leg edema present, but appears to be somewhat better today than yesterday. Final Diagnosis: 1.Cellulitis, right leg. 2.Hypokalemia. 3.Hypomagnesemia. 4.Hypertension. 5.Hyperlipidemia. 6.Post-polio syndrome. 7.Mild intermittent asthma. 8.Allergic rhinitis. Hospital Course: This is a 65-year-old male patient admitted to the hospital with redness in his rig ht leg and pain in his right leg. Please see dictated H and P for more information. Patient was adm itted to the hospital with this right leg cellulitis. Blood culture remained negative. He was start ed on empiric antibiotic, which was vancomycin and Levaquin and that successfully took care of his ri ght leg cellulitis about 3 months ago. He came into emergency room with these complaints. Blood cul ture was done. He was admitted to the hospital. He received IV Levaquin and IV vancomycin. Pharmac y consult was requested to manage vancomycin dosing. He is on 1.25 g every 12 hours and I did talk t o pharmacist about ordering 1 g, whenever we ordered his vancomycin dose for home use, his vancomycin trough level was 14.8 and then it went up to 18.8, so Pharmacy agreed to make arrangements for 1 g q .12 hours instead of 1.25 g q.12 hours. Social Service was consulted and arrangements were made for him to receive 10 days of IV vancomycin at home and we will give oral Levaquin. Yesterday, Infectiou s Disease consultation was requested as the patient kept on having low-grade fever. His maximum temp erature was 102 degrees Fahrenheit on 02/21/2020 at 17:35 p.m., but after that, his temperature has c ome down and stayed down. Stool C diff was ordered yesterday, result pending. Stool culture ordered , result pending. His COVID-19 test came back negative. For his leg swelling, he was given 1 dose o f Lasix 20 mg IV. His DVT study of leg was negative, which was done upon admission. Discharge Medications And Instructions: 1.Continue prior home medications. 2.Vancomycin 1 g IV piggyback every 12 hours for 10 days. 3.Levaquin 500 mg daily for 2 weeks. 4.Follow up at my office on 03/02/2020. 5.Home Health nurse to assist the patient with IV antibiotic, flush PICC line per protocol, change P ICC line dressing per protocol. Home Health nurse to draw blood every other day while on IV vancomyc in for CBC, chem 7, and vancomycin trough level. JG/MODL Voice ID: [id number] Report ID: [id number]
== END 2020-02-23 13:32 | disposition home health service (06) | DRG 603 ==
LOC: ER 15:13 → ERHOLD 18:53 → 2ND 19:45
PROVIDERS: ADMIT Internal Medicine; ATTEND Internal Medicine
PROC: 02HV33Z Insertion of Infusion Device into Superior Vena Cava, Percutaneous Approach (ICD-10-PCS; principal; 2020-02-19)
DX: L03.115 Cellulitis of right lower limb (principal); I10 Essential (primary) hypertension; E78.5 Hyperlipidemia, unspecified; K21.9 Gastro-esophageal reflux disease without esophagitis; D64.9 Anemia, unspecified; E87.6 Hypokalemia; J45.20 Mild intermittent asthma, uncomplicated; J30.9 Allergic rhinitis, unspecified; G14 Postpolio syndrome; E83.42 Hypomagnesemia; R60.0 Localized edema; Z88.5 Allergy status to narcotic agent; Z88.0 Allergy status to penicillin; Z88.8 Allergy status to other drugs, medicaments and biological substances; Z11.59 Encounter for screening for other viral diseases
CPT/HCPCS: 36415; 36569; 71045; 80048; 80076; 80202; 81003; 81015; 82550; 82565; 83605; 83690; 83735; 84132; 84145; 84484; 85025; 85610; 85652; 85730; 86140; 87040; 87045; 87046; 87086; 87088; 87324; 87449; 93005; 93971; 96365; 96367; 96375; 99285; J0692; J1650; J1940; J2270; J3370; J3475; J3480; J7030; J7050; U0002

== ENCOUNTER 2020-08-14 16:22 | Inpatient (IN) | payer OTHER ==
--- OUTSIDE RECORDS SUMMARY | 2020-08-14 16:24 | XMS REPORT | Summary of Care ---
:1955 Author Organization [facility] - [facility] Address [address] [place] [id number] Care Team Providers Name Role Phone Brandi Ml Primary Care Provider Reason for Visit Reason Comments LAB covid Encounter Details Date Type Department Care Team Description 08/14/2020 Laboratory Only [facility] Breanna Asencio, SUBWAY REPAIR SUPERVISOR [id number] [place] [address] Exposure to Medicine - [facility], Adc Fam Pob I SARS-associated [address] [facility] coronaviru s ([address] Drive Dx) [place] [address] Allergies Active Allergy Reactions Severity Noted Date Comments Diphenhydramine Hcl Unknown - See comments 12/25/2018 Codeine Unknown - See comments 12/25/2018 Penicillins Unknown - See comments 12/25/2018 documented as of this encounter (statuses as of 08/14/2020) Medications Medication Sig Dispensed Refills Start Date End Date Status amLODIPine 5 mg Take 5 mg by mouth 0 Active tabletIndications: at daily. bedtime Indications: at bedtime lisinopril 20 mg Take 20 mg by 0 Active tabletIndications: q mouth daily. am Indications: q am atorvastatin 10 mg Take 10 mg by 0 Active tablet mouth at bedtime. LANSOPRAZOLE ORAL Take by mouth. 0 Active lansoprazole 30 mg Take 30 mg by 0 Active capsule mouth daily. aspirin/salicylamide/c Take 1 Package by 0 Active affeine (BC HEADACHE mouth 2 (two) POWDER times daily. 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 documented as of this encounter Last Filed Vital Signs Not on filedocumented in this encounter Nursing Notes Brianda Martinez RN - 08/14/2020 1:40 PM CSTHowroro Manriquez is a 65 year old male here for COVID Screening with a Nasopharyngeal Swab All droplet and contact precautions taken with appropriate PPE worn while interacting with patient. ? Goggles ? N95 Mask ? Gloves ? Gown RR 19 Pulse Ox 97% Patient educated on plan of care for visit, swabbing technique, risks and benefits of test and length of time to receive results. Verbal consent obtained to perform test. CDC Fact Sheet for Patients nCoV Diagnostic Panel dated 09/22/2019 and Factsheet What to Do if Sick with COVID 19 09/02/19 provided. Patient swabbed per appropriate nasopharyngeal technique, and patient tolerated well. Patient was discharged from the testing clinic in stable condition. Brianda Martinez RN 08/14/2020 1:25 PM documented in this encounter Plan of Treatment Name Type Priority Associated Diagnoses Order S chedule COVID-19 (MOLECULAR LAB Routine Exposure to Expected : 08/14/2020, TESTING SARS-associated Expires: 022 NUCLEIC ACID coronavirus AMPLIFICATION) Health Maintenance Due Date Last Done Comments HEPATITIS C (HCV) SCREEN 1955 Depression Screening 1969 DTaP,Tdap,and Td Vaccines (1 - 02/09/1976 Tdap) COLON CANCER SCREENING ANNUAL 2007 FIT/FOBT COLON CANCER SCREENING FIT DNA 2007 EVERY 3 YEARS COLON CANCER SCREENING 2007 SIGMOIDOSCOPY EVERY 5 YEARS Zoster Recombinant Vaccine 2007 (SHINGRIX) (1 of 2) INFLUENZA VACCINE (#1) 2020 COLONOSCOPY 12/26/2028 12/26/2018 Colorectal Cancer Screening 12/26/2028 PNEUMOCOCCAL 0-64 YEARS COMBINED Aged Out No longer eligible based on SERIES patient's age to complete this topic documented as of this encounter Results Not on filedocumented in this encounter Visit Diagnoses Diagnosis Exposure to SARS-associated coronavirus - Primary documented in this encounter Additional Health Concerns Infection Onset Date Last Indicated Resolved Time COVID-19 Rule Out 08/14/2020 08/14/2020 documented as of this encounter Insurance Payer Benefit Plan / Subscriber ID Effective Dates Phone Addre ss Type Group MEDICARE MEDICARE PART [id number] 1977-Benjamin [phone] [address] Medicare A & B t 2 [id number] ELIJAH MORALES [id number] documented as of this encounter
--- OUTSIDE RECORDS SUMMARY | 2020-08-14 16:24 | XMS REPORT | Continuity of Care Document ---
:1955 Author Organization [facility] t Address [address] [place] [address] Care Team Providers Name Role Phone Lab, Fam Pob I Attending Clinician Unavailable Doctor Unassigned, Name Attending Clinician Unavailable TIMOTHY Attending Clinician Unavailable LIVELY Attending Clinician Unavailable Problems Condition Condition Condition [...] Univers 300 MG Oral 300 MG Oral 9-27 LIVELY CAPSULE ity of Capsule Capsule 00:00: P.A. TWICE [place] 00 DAILY. Physici ans Procedures Procedure Date / Time Performed Performing Clinician [facility] e [U] XRAY KNEE 1 OR 2 2018-05-09 00:00:00 Univers ity [facility] LEFT [id number] Physicians [U] XRAY FOOT MIN 3 2018-04-05 00:00:00 Universi ty of [facility] LEFT 8[address] Physicians [U] XRAY KNEE 1 OR 2 2018-03-30 00:00:00 Univers ity [facility] LEFT [id number] Physicians Encounters Start End Encounter Admission Attending Care Care Encounter Source Date/Time Date/Time Type Type Clinicians Facility Department ID 2020-08-14 2020-08-14 Laboratory Lab, [facility] [id number] 13:24:17 13:44:17 Only Fam Pob I Health [id number] [place] [id number] [facility] [id number] nal [address] 2020-08-14 2020-08-14 Letter Doctor JAGDEEP [id number] 00:00:00 00:00:00 (Out) Unassigned, [place] [id number] [place] [facility] [id number] 2018-05-17 2018-05-17 Appointmen KEVIN AGUIRRE [facility] [id number] Univers 11:15:00 11:15:00 t; JUANA AGUIRRE ity o f JOSHUA, M.D. [place] M.D. Physici ans 2018-04-05 2018-04-05 Appointmen KEVIN WU [facility] [id number] Univers 11:30:00 11:30:00 t; JAMAAL WU ity of AUDREY, P.A. [place] P.A. Physici ans 2018-03-08 2018-03-08 Appointmen KEVIN AGUIRRE RUST [id number] Univers 11:30:00 11:30:00 t; JUANA AGUIRRE ity o f JOSHUA, M.D. [place] M.D. Physici ans Results Test Description Test Time Test Comments Results Result [facility] e Comments [U] XRAY KNEE 1 2018-03-08 Images Universit y of [place] 2 VWS LEFT 11:42:00 acquired, not [place] [id number] reported on Physicians this accession number.
--- OUTSIDE RECORDS SUMMARY | 2020-08-14 16:24 | XMS REPORT | Summary of Care ---
:1955 Author Organization [facility] - Health Address [address] [place] [address] Care Team Providers Name Role Phone Brandi Ml Primary Care Provider Encounter Details Date Type Department Care Team Description 08/14/2020 Letter (Out) [facility] Spotsi Message s Doctor Unassigned, No [address] [facility] [place] [address] [address] [facility] [phone] [place] [address] Allergies Active Allergy Reactions Severity Noted Date [...] Assigned at Date Recorded Not on file documented as of this encounter Last Filed Vital Signs Not on filedocumented in this encounter Plan of Treatment Date Type Specialty Care Team Description 08/14/2020 Laboratory Only Family Medicine María 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 Medicare A & B t 2 [id number] [place] [id number] documented as of this encounter
[2020-08-14 18:51] LABS: Basophils % 0.3 % (0-1.3); Hematocrit 38.9 % (39.6-49.0); MPV 8.3 fL (7.6-11.3); RBC Red Blood Cell Count 4.77 M/uL (4.33-5.43)
[2020-08-14 18:55] LABS: Protime INR 1.27
[2020-08-14 19:05] LABS: ALT/SGPT 31 U/L (12-78); AST/SGOT 27 U/L (15-37); Albumin 3.7 g/dL (3.4-5.0); Alkaline Phosphatase 100 U/L (45-117); BUN Blood Urea Nitrogen 20 mg/dL (7-18); Bicarbonate 25 mmol/L (21-32); Bilirubin Direct 0.3 mg/dL (0-0.2); Creatine Phosphokinase 169 U/L (39-308); Glucose Level 90 mg/dL (74-106); Potassium 3.3 mmol/L (3.5-5.1); Protein, Total 7.9 g/dL (6.4-8.2); Sodium Level 138 mmol/L (136-145)
--- NOTE | 2020-08-14 19:18 | ER ---
Nurse's Notes [facility] Name: Hosea Manriquez Age: 65 yrs Sex: Male : 1955 Arrival Date: 08/14/2020 Time: 16:24 Bed 26 Private MD: Diagnosis: Cellulitis of right lower limb;Severe sepsis Presentation: 08/14 16:51 Chief complaint: Patient states: sent me here to get seen by the ER physician sg for my sore on my leg that they were treating as cellulitis, I also get lymphedema and wear a compression stocking on this right leg, but its red hot and swollen now so hopefully I caught it in time before I need a PICC and abx therapy again. Coronavirus screen: Client denies travel out of the [place] in the last 14 days. At this time, the client does not indicate any symptoms associated with coronavirus-19. Ebola Screen: Patient negative for fever greater than or equal to 101.5 degrees Fahrenheit, and additional compatible Ebola Virus Disease symptoms Patient denies exposure to infectious person. Patient denies travel to an Ebola-affected area in the 21 days before illness onset. No symptoms or risks identified at this time. Initial Sepsis Screen: Does the patient meet any 2 criteria? No. Patient's initial sepsis screen is negative. Does the patient have a suspected source of infection? No. Patient's initial sepsis screen is negative. Risk Assessment: Do you want to hurt yourself or someone else? Patient reports no desire to harm self or others. Onset of symptoms was August 14, 2020. Care prior to arrival: None. Transition of care: patient was not received from another setting of care. 16:51 Acuity: SABAS 3 16:51 Method Of Arrival: Ambulatory sg Historical: - Allergies: 16:51 Benadryl; sg 16:51 Codeine; sg 16:51 PENICILLINS; sg - PMHx: 16:51 Chronic headaches; High Cholesterol; Hypertension; Polio; SCIATIC NERVE PAIN; sg - PSHx: 16:51 Knee surgery; foot surgery; sg - Immunization history:: Adult Immunizations up to date. - Social history:: Smoking status: Patient denies any tobacco usage or history of. Screenin:00 Abuse screen: Denies threats or abuse. Denies injuries from another. Nutritional ca1 screening: No deficits noted. Tuberculosis screening: No symptoms or risk factors identified. Fall Risk IV access (20 points). Ambulatory Aid- Crutches/Cane/Walker (15 pts). Gait- Impaired (20 pts.). Assessment: 18:00 General: Appears in no apparent distress. comfortable, Behavior is calm, cooperative, ca1 appropriate for age. Pain: Denies pain. Neuro: Level of Consciousness is awake, alert, obeys commands, Oriented to person, place, time, situation. Cardiovascular: Heart tones S1 S2 present Capillary refill < 3 seconds Patient's skin is warm and dry. Respiratory: Airway is patent Respiratory effort is even, unlabored, Respiratory pattern is regular, symmetrical, Breath sounds are clear bilaterally. GI: Abdomen is round non-distended, Bowel sounds present X 4 quads. Abd is soft and non tender X 4 quads. : No signs and/or symptoms were reported regarding the genitourinary system. EENT: No signs and/or symptoms were reported regarding the EENT system. Derm: Skin is intact, is healthy with good turgor, Skin is pink, warm \\T\\ dry. Musculoskeletal: Circulation, motion, and sensation intact. Capillary refill < 3 seconds, Swelling present in right leg. 18:58 Reassessment: Patient appears in no apparent distress at this time. Patient and/or ca1 family updated on plan of care and expected duration. Pain level reassessed. Patient is alert, oriented x 3, equal unlabored respirations, skin warm/dry/pink. 19:20 Reassessment: Patient and/or family updated on plan of care and expected duration. Pain cr4 level reassessed. Patient is alert, oriented x 3, equal unlabored respirations, skin warm/dry/pink. Reassessment: No changes from previously documented assessment. notified that the doctor wanted to admit to hospital.. Derm: Skin is intact, Skin is dry, Skin is redness and inflamation to right leg. Tender to touch. 20:27 Reassessment: No changes from previously documented assessment. Patient and/or family cr4 updated on plan of care and expected duration. Pain level reassessed. Patient is alert, oriented x 3, equal unlabored respirations, skin warm/dry/pink. 21:17 Reassessment: No changes from previously documented assessment. Patient and/or family cr4 updated on plan of care and expected duration. Pain level reassessed. Patient is alert, oriented x 3, equal unlabored respirations, skin warm/dry/pink. Patient states feeling better. patient no longer with chills. . 21:58 Reassessment: No changes from previously documented assessment. Patient and/or family cr4 updated on plan of care and expected duration. Pain level reassessed. Patient is alert, oriented x 3, equal unlabored respirations, skin warm/dry/pink. patient with eyes closed breathing regular. No signs of distress.. 23:09 Reassessment: No changes from previously documented assessment. Patient and/or family cr4 updated on plan of care and expected duration. Pain level reassessed. 23:10 Reassessment: No changes from previously documented assessment. awaiting help to cr4 transport the patient and personal items.. Vital Signs: 16:51 BP 117 / 75; Pulse 81; Resp 16; Temp 100.2; Pulse Ox 98% on R/A; Pain 4/10; sg 18:58 BP 124 / 82; Pulse 71; Resp 16 S; Pulse Ox 100% on R/A; ca1 19:15 BP 142 / 79; Pulse 73; Resp 18; Temp 100.1; Pulse Ox 98% ; Pain 2/10; cr4 20:21 BP 111 / 67; Pulse 76; Resp 18; Pulse Ox 98% ; Pain 3/10; cr4 21:15 BP 103 / 67; Pulse 65; Resp 20; Temp 100.3; Pulse Ox 93% ; Pain 3/10; cr4 22:00 BP 103 / 67; Pulse 69; Resp 20; Temp 99.7; Pulse Ox 96% ; Pain 0/10; cr4 ED Course: 16:24 Patient arrived in ED. as 16:51 Arm band placed on. sg 16:52 Triage completed. sg 17:51 Kang Handy PA is PHCP. cp 17:51 Dirk Rossi MD is Attending Physician. cp 17:52 PHCP role handed off by Kang Handy PA jr8 17:52 Rene Swift PA is PHCP. jr8 17:55 Myrtle Keita, KIRA is Primary Nurse. ca1 18:00 Patient has correct armband on for positive identification. Bed in low position. Call ca1 light in reach. Side rails up X2. phototypesetting equipment monitor on. Pulse ox on. NIBP on. 18:38 Inserted saline lock: 20 gauge in left antecubital area, using aseptic technique. Blood dh4 collected. 19:03 Report given to KIRA Rivera. ca1 19:17 Antonia Paz MD is Hospitalizing Provider. jr8 20:00 Inserted saline lock: 20 gauge in right forearm, using aseptic technique. cr4 20:03 COVID-19 : Document "Date of Symptom Onset" if Symptomatic. Sent. cr4 23:06 No provider procedures requiring assistance completed. Patient admitted, IV remains in cr4 place. Administered Medications: 19:31 Drug: vancoMYCIN 1 grams Route: IVPB; Infused Over: 2 hrs; Site: left antecubital; cr4 21:34 Follow up: Response: No adverse reaction; IV Intake: 250ml cr4 21:36 Follow up: IV Status: Completed infusion cr4 19:31 Drug: Cefepime 1 grams Route: IVPB; Rate: 200 ml/hr; Infused Over: 30 mins; Site: left cr4 antecubital; 19:34 Follow up: IV Status: Completed infusion; IV Intake: 10ml cr4 21:33 Follow up: Response: No adverse reaction cr4 19:32 Drug: Tylenol 1000 mg Route: PO; cr4 21:34 Follow up: Response: No adverse reaction; Temperature is unchanged cr4 20:03 Drug: Potassium Chloride 40 mEq Route: PO; cr4 21:33 Follow up: Response: No adverse reaction cr4 Intake: 19:34 IV: 10ml; Total: 10ml. cr4 21:34 IV: 250ml; Total: 260ml. cr4 Outcome: 19:17 Decision to Hospitalize by Provider. jr8 21:58 Instructed on the need for admit. cr4 22:40 Admitted to Med/surg accompanied by nurse, accompanied by tech, via stretcher, room cr4 219, Report called to Jasmin Varghese 23:07 Condition: stable cr4 23:14 Patient left the ED. cr4 Signatures: Pito Romero RN RN sg Martinez, Amelia as Ruiz, Claudia, RN RN cr4 Rene Swift PA PA 8 Kang Handy PA PA cp Acob, Cheryl, RN RN [facility] Aubrey Bain 4 Corrections: (The following items were deleted from the chart) 17:33 16:51 Chief complaint: Patient states: sent me here to get seen by the ER physician for my sore on my leg
--- NOTE | 2020-08-14 19:18 | EDPHYS ---
Physician Documentation [facility] Name: Hosea Manriquez Age: 65 yrs Sex: Male : 1955 Arrival Date: 08/14/2020 Time: 16:24 Bed 26 Private MD: ED Physician Dirk Rossi HPI: 08/14 18:54 This 65 yrs old Male presents to ER via Ambulatory with complaints of leg jr8 infection. 18:54 The patient presents with cellulitis of the right leg. Onset: The symptoms/episode jr8 began/occurred acutely, today. Possible cause(s): unknown. Associated signs and symptoms: Pertinent positives: fever. Modifying factors: the symptoms are alleviated by nothing, the symptoms are aggravated by nothing. Severity of symptoms: At their worst the symptoms were moderate, in the emergency department the symptoms are unchanged. The patient has experienced similar episodes in the past, a few times. The patient has not recently seen a physician. History of cellulitis in the past. Stated that he had chills and fever last night. Today started to have erythema to leg that progressed throughout day . Historical: - Allergies: 16:51 Benadryl; sg 16:51 Codeine; sg 16:51 PENICILLINS; sg - PMHx: 16:51 Chronic headaches; High Cholesterol; Hypertension; Polio; SCIATIC NERVE PAIN; sg - PSHx: 16:51 Knee surgery; foot surgery; sg - Immunization history:: Adult Immunizations up to date. - Social history:: Smoking status: Patient denies any tobacco usage or history of. ROS: 18:54 Eyes: Negative for injury, pain, redness, and discharge, ENT: Negative for injury, jr8 pain, and discharge, Neck: Negative for injury, pain, and swelling, Cardiovascular: Negative for chest pain, palpitations, and edema, Respiratory: Negative for shortness of breath, cough, wheezing, and pleuritic chest pain, Abdomen/GI: Negative for abdominal pain, nausea, vomiting, diarrhea, and constipation, Back: Negative for injury and pain, MS/Extremity: Negative for injury and deformity, Neuro: Negative for headache, weakness, numbness, tingling, and seizure. 18:54 Skin: Positive for cellulitis, erythema, of the right leg. Exam: 18:54 Cardiovascular: Regular rate and rhythm with a normal S1 and S2. No gallops, murmurs, jr8 or rubs. Normal PMI, no JVD. No pulse deficits. Respiratory: Lungs have equal breath sounds bilaterally, clear to auscultation and percussion. No rales, rhonchi or wheezes noted. No increased work of breathing, no retractions or nasal flaring. MS/ Extremity: Pulses equal, no cyanosis. Neurovascular intact. Full, normal range of motion. Neuro: Awake and alert, GCS 15, oriented to person, place, time, and situation. Cranial nerves II-XII grossly intact. Motor strength 5/5 in all extremities. Sensory grossly intact. 18:54 Skin: Moderate cellulitis noted to right lower extremity including foot with lymphangitis going up to the inguinal region. Lymphadenitis noted to right groin as well that is tender to touch . Vital Signs: 16:51 BP 117 / 75; Pulse 81; Resp 16; Temp 100.2; Pulse Ox 98% on R/A; Pain 4/10; sg 18:58 BP 124 / 82; Pulse 71; Resp 16 S; Pulse Ox 100% on R/A; ca1 19:15 BP 142 / 79; Pulse 73; Resp 18; Temp 100.1; Pulse Ox 98% ; Pain 2/10; cr4 20:21 BP 111 / 67; Pulse 76; Resp 18; Pulse Ox 98% ; Pain 3/10; cr4 21:15 BP 103 / 67; Pulse 65; Resp 20; Temp 100.3; Pulse Ox 93% ; Pain 3/10; cr4 22:00 BP 103 / 67; Pulse 69; Resp 20; Temp 99.7; Pulse Ox 96% ; Pain 0/10; cr4 MDM: 17:52 Patient medically screened. jr8 18:54 Data reviewed: vital signs, nurses notes, lab test result(s), and as a result, I will jr8 discharge patient. Data interpreted: Pulse oximetry: on room air is 98 %. Interpretation: normal. Counseling: I had a detailed discussion with the patient and/or guardian regarding: the historical points, exam findings, and any diagnostic results supporting the discharge/admit diagnosis, lab results, the need for further work-up and treatment in the hospital. 08/14 17:52 Order name: Basic Metabolic Panel; Complete [facility]: 19[facility] 08/14 17:52 Order name: Blood Culture Adult (2) jr8 08/14 17:52 Order name: CBC with Diff 8 08/14 17:52 Order name: CPK; Complete Time: 19:18 jr8 08/14 17:52 Order name: Lactate; Complete Time: 19:34 jr8 08/14 17:52 Order name: LFT's; Complete Time: 19:18 8 08/14 17:52 Order name: Procalcitonin; Complete Time: 20:10 8 08/14 17:52 Order name: Protime (+inr); Complete Time: 19:00 jr8 08/14 17:52 Order name: Ptt, Activated; Complete Time: 19:00 8 08/14 18:45 Order name: Glucose, Ancillary Testing; Complete Time: 18:47 EDMS 08/14 19:03 Order name: COVID-19 : Document "Date of Symptom Onset" if Symptomatic. 8 08/14 20:59 Order name: CBC Smear Scan EDMS 08/14 21:53 Order name: SARS-COV-2 RT PCR EDMS 08/14 17:52 Order name: Accucheck; Complete Time: 18:39 8 08/14 17:52 Order name: Cardiac monitoring; Complete Time: 18:55 [facility] 08/14 17:52 Order name: EKG - Nurse/Tech; Complete Time: 18:55 8 08/14 17:52 Order name: IV Saline Lock - Large Bore; Complete Time: 18:39 8 08/14 17:52 Order name: Labs collected and sent; Complete Time: 18:38 [facility] 08/14 17:52 Order name: O2 Per Protocol; Complete Time: 18:38 8 08/14 17:52 Order name: O2 Sat Monitoring; Complete Time: 18:38 [facility] Administered Medications: 19:31 Drug: vancoMYCIN 1 grams Route: IVPB; Infused Over: 2 hrs; Site: left antecubital; cr4 21:34 Follow up: Response: No adverse reaction; IV Intake: 250ml cr4 21:36 Follow up: IV Status: Completed infusion cr4 19:31 Drug: Cefepime 1 grams Route: IVPB; Rate: 200 ml/hr; Infused Over: 30 mins; Site: left cr4 antecubital; 19:34 Follow up: IV Status: Completed infusion; IV Intake: 10ml cr4 21:33 Follow up: Response: No adverse reaction cr4 19:32 Drug: Tylenol 1000 mg Route: PO; cr4 21:34 Follow up: Response: No adverse reaction; Temperature is unchanged cr4 20:03 Drug: Potassium Chloride 40 mEq Route: PO; cr4 21:33 Follow up: Response: No adverse reaction cr4 Disposition: 08/15 08:29 Co-signature as Attending Physician, Dirk Rossi MD. rn Disposition: 08/14/20 19:17 Hospitalization ordered by Antonia Paz for Inpatient Admission. Preliminary diagnosis are Cellulitis of right lower limb, Severe sepsis. - Bed requested for Telemetry/MedSurg (Inpatient). - Status is Inpatient Admission. cr4 - Condition is Stable. - Problem is new. - Symptoms are unchanged. Signatures: Dispatcher [employer] EDMS Pito Romero, RN RN Nicole Darling RN RN cr4 Dirk Rossi MD MD rn Roszak, Josh, PA PA jr8 Tia Escobedo RN RN cg Corrections: (The following items were deleted from the chart) 08/14 21:49 19:17 Hospitalization Ordered by A Brandi REDMAN for Inpatient Admission. Preliminary cg diagnosis is Cellulitis of right lower limb; Severe sepsis. Bed requested for Telemetry/MedSurg (Inpatient). Status is Inpatient Admission. Condition is Stable. Problem is new. Symptoms are unchanged. jr8 23:14 21:49 08/14/2020 19:17 Hospitalization Ordered by A Brandi REDMAN for Inpatient Admission. cr4 Preliminary diagnosis is Cellulitis of right lower limb; Severe sepsis. Bed requested for Telemetry/MedSurg (Inpatient). Status is Inpatient Admission. Condition is Stable. Problem is new. Symptoms are unchanged. cg
[2020-08-14] MEDS ORDERED: CEFEPIME/SWI 1gm 10 ML ONE (19:23)
[2020-08-14] MEDS ORDERED: ACETAMINOPHEN 500 MG TAB ONE (19:23)
[2020-08-14] MEDS ORDERED: VANCOMYCIN 1 GM/VIAL ONE (19:23)
[2020-08-14] MEDS ORDERED: NA CHLORIDE 0.9% 0 ML ONE (19:24)
[2020-08-14] MEDS ORDERED: NA CHLORIDE 0.9% 250 ML ONE (19:28)
[2020-08-14] MEDS ORDERED: POTASSIUM CL SA 10 MEQ TAB PO ONE (20:03)
[2020-08-14 20:59] LABS: Blood Morphology Comment NOT SEEN (NOT SEEN); Platelet Estimate ADEQ; White Blood Cell Scan OK (OK)
[2020-08-14] MEDS ORDERED: ONDANSETRON 4 MG/2 ML VIAL IV PRN (23:27)
[2020-08-14] MEDS ORDERED: ACETAMINOPHEN 500 MG TAB PO PRN (23:27)
[2020-08-14 23:33] VITALS: BMI 26.3
[2020-08-15] MEDS: NA CHLORIDE 0.9% 1,000 ML IV SCH ×2 (00:08→16:04)
[2020-08-15 06:14] LABS: Absolute Lymphocytes (CBC) 0.5 K/uL (0.7-4.9); Basophils % 0.3 % (0-1.3); Hematocrit 33.5 % (39.6-49.0); Lymphocytes % 4.6 % (15.3-44.8); MPV 8.5 fL (7.6-11.3); RBC Red Blood Cell Count 4.12 M/uL (4.33-5.43)
[2020-08-15 06:15] LABS: BUN Blood Urea Nitrogen 20 mg/dL (7-18); Bicarbonate 22 mmol/L (21-32); Glucose Level 93 mg/dL (74-106); Potassium 4.1 mmol/L (3.5-5.1); Sodium Level 139 mmol/L (136-145)
[2020-08-15] MEDS ORDERED: CEFEPIME 1 GM/VIAL IV SCH (09:00)
[2020-08-15] MEDS: VANCOMYCIN/NS 1 gm 1 GM/250 ML BAG IVPB SCH ×2 (09:00→21:19)
[2020-08-15] MEDS: CEFEPIME/SWI 1gm 10 ML IV SCH ×2 (09:18→21:20)
[2020-08-15] MEDS: ENOXAPARIN 40 MG/0.4 ML SQ SCH (16:04)
[2020-08-15 21:32] VITALS: O2SAT 95
[2020-08-16] MEDS: NA CHLORIDE 0.9% 1,000 ML IV SCH ×2 (02:07→07:58)
[2020-08-16] MEDS: CEFEPIME/SWI 1gm 10 ML IV SCH ×2 (07:59→21:19)
[2020-08-16] MEDS: lisinopriL 20 MG TAB PO SCH (09:48)
[2020-08-16] MEDS: VANCOMYCIN/NS 1 gm 1 GM/250 ML BAG IVPB SCH ×2 (09:48→21:19)
--- NOTE | 2020-08-16 13:02 | PN ---
Date of Progress Note: 08/16/2020 Subjective: The patient was seen this morning for followup. No new complaints or problems reported by the patient. Lying in bed, not in distress. Remains afebrile. Maximum temperature was 99. Afte r that, the patient has remained afebrile. Hemodynamically, he is stable. Denies any complaints thi s morning. His redness and soft tissue swelling from right leg have improved compared to yesterday. Objective: HEENT: Unremarkable. Lungs: Clear to auscultation. Heart: Sounds normal. Abdomen: Soft. Bowel sounds normal. No guarding, rigidity, tenderness, or distention. Extremities: Right lower extremity shows improvement in his redness and pink discoloration that he h ad from thigh and lower leg. Entire right lower extremity shows improvement compared to yesterday. Soft tissue swelling is also better today than yesterday. Impression: 1.Cellulitis, right lower extremity. 2.Hypertension. 3.Hyperlipidemia. 4.Post-polio syndrome. 5.Lymphedema, legs. Plan: The patient's cellulitis seems to be improving very well. Blood culture has remained negative . We will continue current cefepime and vancomycin. Repeat blood work tomorrow. I will see him babar orrow morning for followup. Home medications will be continued per order and our plan is to possibly discharge to go home tomorrow with oral antibiotics. Details and plan of treatment discussed with t michael patient. The patient was also informed that after he goes home on oral antibiotic if he starts to have fever, chills, or worsening of redness of the right lower extremity, then he will need to come back to the hospital and we will have to full give him IV antibiotics and place PICC line at that yue e. We talked about when he can return back to his work. 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 JG/MODL Voice ID: [id number] Report ID: [id number]
[2020-08-16] MEDS: ENOXAPARIN 40 MG/0.4 ML SQ SCH (16:51)
[2020-08-16] MEDS ORDERED: ATORVASTATIN 10 MG TAB PO SCH (21:00)
[2020-08-16] MEDS ORDERED: AMLODIPINE 10 MG TAB PO SCH (22:30)
[2020-08-17 05:38] LABS: Absolute Lymphocytes (CBC) 1.2 K/uL (0.7-4.9); Basophils % 0.6 % (0-1.3); Hematocrit 33.9 % (39.6-49.0); Lymphocytes % 20.9 % (15.3-44.8); MPV 8.6 fL (7.6-11.3); RBC Red Blood Cell Count 4.15 M/uL (4.33-5.43)
[2020-08-17 05:55] LABS: BUN Blood Urea Nitrogen 10 mg/dL (7-18); Bicarbonate 22 mmol/L (21-32); Glucose Level 88 mg/dL (74-106); Potassium 3.3 mmol/L (3.5-5.1); Sodium Level 142 mmol/L (136-145)
[2020-08-17] MEDS ORDERED: POTASSIUM CL SA 10 MEQ TAB PO ONE (06:51)
[2020-08-17] MEDS: VANCOMYCIN/NS 1 gm 1 GM/250 ML BAG IVPB SCH (09:00)
[2020-08-17 09:29] VITALS: TEMP 97.5
[2020-08-17] MEDS: CEFEPIME/SWI 1gm 10 ML IV SCH (09:52)
[2020-08-17] MEDS: lisinopriL 20 MG TAB PO SCH (09:55)
[2020-08-17 09:58] VITALS: BP 156/80
--- NOTE | 2020-08-17 12:00 | HP ---
Date of Admission: 08/15/2020 Chief Complaint: Fever, chills, and redness of leg. History Of Present Illness: This is a 65-year-old male patient with prior history of lymphedema of legs and a previous cellulitis involving right lower extremity requiring hospital admission twice last year. Last admission was about 6 months ago. During his last admission, he was treated with IV vancomycin and oral Levaquin on an outpatient basis. His blood culture did not grow any specific bacteria during last hospital stay. After his cellulitis problem resolved, he went through [facility] in [place] and went through lymphedema treatment and has been using [place] Wraps to his legs and that has helped to control his lymphedema swelling very well and he has not had any recurrence of cellulitis of leg. Two days ago while he was working in his garage he got hurt in his right groin area and he started to have fever and chills in the evening time, temperature was up to 102 and yesterday he had same problem with fever and chills and he started to notice his right leg was turning red so he contacted me. He was advised to come to emergency room. After he was evaluated in the ER, he was admitted to the hospital with extensive cellulitis of right lower extremity. Allergies: TO PENICILLIN, TRAMADOL, CODEINE, AND BENADRYL. Medications: List reviewed. Review of Systems: Constitutional: As mentioned above. Dermatology: As mentioned above. Musculoskeletal: As mentioned above. PRODUCT INSPECTION COORDINATOR: The patient has post-polio syndrome affecting his both lower extremities. All other systems reviewed and negative. Past Medical History: Significant for allergic rhinitis, mild intermittent asthma, hypertension, hyperlipidemia, gastroesophageal reflux disease, anxiety, post-polio syndrome, cellulitis of right lower extremity and lymphedema of legs. Past Surgical History: Significant for cervical spine surgery, knee surgery, multiple leg surgeries due to polio. Family History: Father had coronary artery disease. Mother with hypertension, hyperlipidemia, and arthritis. Social History: Negative for smoking and alcohol use. Physical Examination: Vital Signs: Last temperature 99.8, T-max was 101.9, pulse 78, respiratory rate 17, blood pressure 114/58, oxygen saturation 98% on room air. Height 5 feet 1 inch, weight 141 pounds. General: Awake, alert, oriented, not in distress. HEENT: Head atraumatic, normocephalic. Conjunctivae nonerythematous. Sclerae white. Mouth, no thrush or edema noted. Ears/Nose, no mass, lesion, discharge noted. Neck: Supple. No JVD, lymph nodes, bruit, thyromegaly noted. Lungs: Bilateral good equal air entry. Clear to auscultation. No rhonchi. No rales. Heart: Normal heart sounds, no murmur or gallop. Abdomen: Soft, bowel sounds normal. No guarding, rigidity, tenderness, mass, hepatosplenomegaly, distention, or bruit noted. Extremities: Left lower extremity has a mechanical brace present. Left groin and thigh exam unremarkable. Right lower extremity shows extensive area of redness and induration with soft tissue swelling involving his at least 1/2 to 2/3rd of his medial thigh and almost entire leg from the knee all the way down to his toes. Skin is pink, warm to touch. There is no open wound. Skin: No rash, ulcer, cellulitis. Lymphatics: No lymph node enlargement in neck, supraclavicular, infraclavicular region. Neuro: The patient has weakness of both lower extremity, which is chronic due to his post-polio syndrome. Chest: Unremarkable. External Genitalia: Deferred. Rectal: Deferred. Laboratory Data: Yesterday white count was 16.6 when he came to emergency room with hemoglobin 12.8, platelets 250. This morning white count 10.8, hemoglobin 11.2, platelets 202. COVID-19 test was negative. Yesterday sodium 138, potassium 3.3, chloride 103, bicarb 25, BUN 20, creatinine 0.81, glucose 90. Liver function tests unremarkable. Lactic acid 1, procalcitonin 2.62. This morning sodium 139, potassium 4.1, chloride 109, bicarb 22, BUN 20, creatinine 0.63, glucose 92. Impression: 1. Cellulitis, right leg. 2. Lymphedema, legs. 3. Rule out sepsis. 4. Hypokalemia. 5. Anemia, unspecified. 6. Hypertension. 7. Hyperlipidemia. 8. Gastroesophageal reflux disease. 9. Allergic rhinitis. 10. Mild intermittent asthma. 11. Post-polio syndrome. 12. Anxiety. Plan: We will admit patient to hospital for further evaluation and management of this problem. The patient is appropriate for inpatient and is expected to spend 2 midnights in hospital. We will go ahead and continue his home medications per order. The patient was started on IV vancomycin and IV cefepime. We will continue this antibiotic. Follow up on the culture and if culture grows something then we will decide about culture specific antibiotics. I will see him tomorrow for followup and we will go ahead and repeat blood work tomorrow morning. Details and plan of treatment discussed with the patient. JG/KRISTY Voice ID: [id number] [id number]
--- NOTE | 2020-08-18 08:43 | DS ---
Date of Discharge: 08/17/2020 Disposition: Discharged to go home. Physical Examination: HEENT: Unremarkable. Lungs: Clear to auscultation. Heart: Sounds normal. Abdomen: Soft. Bowel sounds normal. No guarding, rigidity, tenderness, or distention. Extremities: Left leg, no edema. Right leg, very minimal edema present in the form of soft tissue s welling in the area where patient has cellulitis. His right thigh and right lower leg between knee a nd foot has faint pink discoloration of skin, minimally warm to touch, but overall significantly bett er compared to time of admission, which is approximately 50% better from the time of admission. No o pen wound. Laboratory Data: Upon admission; white count 16.6, hemoglobin 12.8, platelets 250. Last white count today 5.90, hemoglobin 11.1, and a platelet count 211. His chemistry upon admission; procalcitonin 2.62 and today procalcitonin 0.45. Chemistry today; sodium 142, potassium 3.3 and oral replacement o f potassium was given, chloride 111, bicarb 22, BUN 10, creatinine 0.42, glucose 88, magnesium 2. Discharge Medications And Instructions: 1.Continue all prior home medications. 2.Take Bactrim DS 1 tablet by mouth 2 times a day for 10 days and cefuroxime 250 mg 1 tablet by mout h 2 times a day for 10 days. 3.Follow up at my office on 08/20/2020 at 9 a.m. Hospital Course: This is a 65-year-old pleasant male patient, admitted to the hospital with fever, c hills and redness of right lower extremity. Please see dictated H and P for more information. After patient was evaluated in the emergency room, he was admitted to the hospital with cellulitis of righ t lower extremity. His blood culture which was done in the emergency room stayed negative. He was s tarted on empiric antibiotic, which was IV vancomycin and IV cefepime. Overall, his condition has im proved. He has remained afebrile and his redness and soft tissue swelling from right lower extremity has improved. He has no other complaints. He has lymphedema of lower extremities for which he has been using Farrow wraps. He has gone through treatment at [facility]. He did have injury to right lower extremity which resulted in this infection. We did talk about precaut ions to avoid any injury. Overall, his condition has improved and he was advised that in case if he starts to have fever, chills, or worsening of the right leg after his discharge that he needs to retu rn back to emergency room as we will have to consider IV antibiotic for the duration of treatment for this infection. Otherwise, we would like to see how he responds to oral antibiotics. Final Diagnoses: 1.Cellulitis, right leg. 2.Lymphedema, legs. 3.Hypertension. 4.Hyperlipidemia. 5.Post-polio syndrome. 6.Anemia. 7.Hypokalemia. JG/MODL Voice ID: [id number] Report ID: [id number]
== END 2020-08-17 12:15 | disposition home or self-care (01) | DRG 603 ==
LOC: ER 16:22 → ERHOLD 19:42 → 2ND 22:51
PROVIDERS: ADMIT Internal Medicine; ATTEND Internal Medicine
DX: L03.115 Cellulitis of right lower limb (principal); I10 Essential (primary) hypertension; E78.5 Hyperlipidemia, unspecified; I89.0 Lymphedema, not elsewhere classified; K21.9 Gastro-esophageal reflux disease without esophagitis; E87.6 Hypokalemia; D64.9 Anemia, unspecified; J45.20 Mild intermittent asthma, uncomplicated; F41.9 Anxiety disorder, unspecified; G14 Postpolio syndrome; Z88.8 Allergy status to other drugs, medicaments and biological substances; Z88.0 Allergy status to penicillin; Z88.5 Allergy status to narcotic agent; Z20.822 Contact with and (suspected) exposure to COVID-19
CPT/HCPCS: 36415; 80048; 80076; 80202; 82550; 82947; 83605; 83735; 84145; 85025; 85610; 85730; 87040; 93005; 96365; 96366; 96375; 99285; J0692; J1650; J3370; J7030; J7040; J7050; U0003

== ENCOUNTER 2020-11-06 17:10 | Inpatient (IN) | payer OTHER ==
--- OUTSIDE RECORDS SUMMARY | 2020-11-06 17:11 | XMS REPORT | Continuity of Care Document ---
:1955 Author Organization [facility] t Address [address] [place] [address] Care Team Providers Name Role Phone Lab, [...] Procedure Date / Time Performed Performing Clinician [facility] e [U] XRAY KNEE 1 OR 2 2018-05-09 00:00:00 Univers ity [facility] LEFT [id number] Physicians [U] XRAY FOOT MIN 3 2018-04-05 00:00:00 [facility]i ty of [facility] LEFT [id number] Physicians [U] XRAY KNEE 1 OR 2 2018-03-30 00:00:00 Univers ity [facility] LEFT [id number] Physicians Encounters Start End Encounter Admission Attending Care Care Encounter Source Date/Time Date/Time Type Type Clinicians Facility Department ID 2020-08-14 2020-08-14 Laboratory Lab, [facility] [id number] 13:24:17 13:44:17 Only Fam [facility] [id number] [place] [id number] [facility] [id number] nal [address] 2020-08-14 2020-08-14 Letter Doctor JAGDEEP [id number] 00:00:00 00:00:00 (Out) Unassigned, BRONSON [id number] [place] [facility] [id number] 2018-05-17 2018-05-17 Appointmen KEVIN AGUIRRE [facility] [id number] Univers 11:15:00 11:15:00 t; JUANA AGUIRRE ity o f JOSHUA, M.D. [place] M.D. Physici ans 2018-04-05 2018-04-05 Appointmen KEVIN WU [facility] [id number] Univers 11:30:00 11:30:00 t; JAMAAL WU ity of AUDREY, P.A. [place] P.A. Physici ans 2018-03-08 2018-03-08 Appointmen KEVIN AGUIRRE [facility] [id number] Univers 11:30:00 11:30:00 t; JUANA AGUIRRE ity o f JOSHUA, M.D. [place] M.D. Physici ans Results Test Description Test Time Test Comments Results Result [facility] e Comments [U] XRAY KNEE 1 2018-03-08 Images Universit y of OR 2 VWS LEFT 11:42:00 acquired, not [place] [id number] reported on Physicians this accession number.
--- NOTE | 2020-11-06 17:30 | EDPHYS ---
Physician Documentation [facility] Name: Hosea Manriquez Age: 65 yrs Sex: Male : 1955 Arrival Date: 11/06/2020 Time: 17:10 Bed 5 Private MD: ED Physician Kang Ayala HPI: 11/06 17:39 This 65 yrs old Male presents to ER via EMS with complaints of right leg pain.jr8 17:44 Onset: The symptoms/episode began/occurred gradually, today. Modifying factors: The jr8 symptoms are alleviated by nothing. the symptoms are aggravated by movement. Associated signs and symptoms: Pertinent positives: fever. Severity of symptoms: At their worst the symptoms were moderate, in the emergency department the symptoms are unchanged. The patient has experienced similar episodes in the past, a few times. The patient has not recently seen a physician. Patient with history of cellulitis to right leg stated that he started to have redness, pain, and fever today. Called PCP who told him to go to ED for evaluation and admission if needed. . Historical: - Allergies: 17:15 Benadryl; tw2 17:15 Codeine; tw2 17:15 PENICILLINS; tw2 - Home Meds: 17:15 lisinopril Oral [Active]; tw2 - PMHx: 17:15 Chronic headaches; SCIATIC NERVE PAIN; Hypertension; High Cholesterol; Polio; tw2 - PSHx: 17:15 Knee surgery; foot surgery; tw2 - Immunization history:: Adult Immunizations. - Social history:: Smoking status: . ROS: 17:44 Eyes: Negative for injury, pain, redness, and discharge, ENT: Negative for injury, jr8 pain, and discharge, Neck: Negative for injury, pain, and swelling, Cardiovascular: Negative for chest pain, palpitations, and edema, Respiratory: Negative for shortness of breath, cough, wheezing, and pleuritic chest pain, Abdomen/GI: Negative for abdominal pain, nausea, vomiting, diarrhea, and constipation, Back: Negative for injury and pain, MS/Extremity: Negative for injury and deformity, Neuro: Negative for headache, weakness, numbness, tingling, and seizure. 17:44 Constitutional: Positive for fever. 17:44 Skin: Positive for erythema, of the right leg. Exam: 17:44 Constitutional: This is a well developed, well nourished patient who is awake, alert, jr8 and in no acute distress. Cardiovascular: Regular rate and rhythm with a normal S1 and S2. No gallops, murmurs, or rubs. Normal PMI, no JVD. No pulse deficits. Respiratory: Lungs have equal breath sounds bilaterally, clear to auscultation and percussion. No rales, rhonchi or wheezes noted. No increased work of breathing, no retractions or nasal flaring. Skin: Warm, dry with normal turgor. Normal color Neuro: Awake and alert, GCS 15, oriented to person, place, time, and situation. Cranial nerves II-XII grossly intact. Motor strength 5/5 in all extremities. Sensory grossly intact. Cerebellar exam normal. Normal gait. 17:44 Musculoskeletal/extremity: Extremities: grossly normal except: noted in the right leg: Patient has erythema to right lower leg from ankle to distal knee. Lymphangitis noted extending through medial thigh. Tender and warm to palpation , ROM: intact in all extremities, Circulation is intact in all extremities. Sensation intact. Vital Signs: 17:20 BP 149 / 79; Pulse 78; Resp 17; Temp 101.5(O); Pulse Ox 98% on R/A; Weight 65.77 kg; tw2 Height 60 in. (152.40 cm) (R); 18:26 BP 136 / 78; Pulse 78; Resp 17; Pulse Ox 100% on R/A; tw2 19:15 BP 132 / 78; Pulse 73; Resp 16; Pulse Ox 99% on R/A; rv 20:00 BP 143 / 77; Pulse 75; Resp 15; Pulse Ox 96% on R/A; rv 20:25 Temp 98.5(O); rv 21:11 BP 139 / 69; Pulse 66; Resp 19; Pulse Ox 100% ; rr5 17:20 Body Mass Index 28.32 (65.77 kg, 152.40 cm) tw2 MDM: 17:13 Patient medically screened. carmenza 17:27 Data reviewed: vital signs, nurses notes, lab test result(s), and as a result, I will jr8 admit patient. Data interpreted: Pulse oximetry: on room air is 98 %. Interpretation: normal. Counseling: I had a detailed discussion with the patient and/or guardian regarding: the historical points, exam findings, and any diagnostic results supporting the discharge/admit diagnosis, lab results, the need for further work-up and treatment in the hospital. ED course: Spoke with Dr. Paz. Will be back after the weekend. Dr. Briones to take call for now but will admit . 11/06 17:22 Order name: CBC with Diff 8 11/06 17:22 Order name: Basic Metabolic Panel [facility] 11/06 17:22 Order name: LFT's [facility] 11/06 17:22 Order name: Blood Culture Adult (2) [facility] 11/06 17:22 Order name: Procalcitonin [facility] 11/06 18:14 Order name: CBC with Automated Diff EDID 11/06 18:59 Order name: Basic Metabolic Panel [facility] 11/06 18:59 Order name: Liver (Hepatic) Function EDID 11/06 19:15 Order name: COVID-19 : Document "Date of Symptom Onset" if Symptomatic. rr5 11/06 19:37 Order name: Procalcitonin [facility] 11/06 19:39 Order name: CBC Smear Scan; Complete Time: 19:46 EDMS 11/06 20:00 Order name: CORONAVIRUS EDID 11/06 20:49 Order name: SARS-COV-2 RT PCR; Complete Time: 20:50 EDID 11/06 17:22 Order name: IV; Complete Time: 17:49 jr8 Administered Medications: 17:40 Drug: Tylenol 1000 mg Route: PO; tw2 20:24 Follow up: Response: No adverse reaction; Temperature is decreased rv 17:40 Drug: NS 0.9% 1000 ml Route: IV; Rate: 1000 ml; Site: left antecubital; tw2 20:24 Follow up: IV Status: Completed infusion; IV Intake: 1000ml rv 17:51 Not Given (md discretion): LevaQUIN (levofloxacin) 750 mg 150 ml IVPB once over 90 mins tw2 18:06 Drug: Cefepime 1 grams {Note: IVP available only.} Route: IVPB; Rate: 200 ml/hr; tw2 Infused Over: 5 mins; Site: left antecubital; 18:11 Follow up: Response: No adverse reaction; IV Status: Completed infusion; IV Intake: [id number] 18:20 Drug: vancoMYCIN 1 grams Route: IVPB; Infused Over: 2 hrs; Site: left antecubital; tw2 20:24 Follow up: IV Status: Completed infusion; IV Intake: 250ml rv 19:26 Drug: Potassium Chloride 40 mEq Route: PO; rr5 20:23 Follow up: Response: No adverse reaction rv Disposition: 11/07 08:03 Co-signature as Attending Physician, Kang Ayala MD I agree with the assessment and carmenza plan of care. Disposition: 11/06/20 17:30 Hospitalization ordered by Antonia Paz for Inpatient Admission. Preliminary diagnosis is Cellulitis of right lower limb. - Bed requested for Telemetry/MedSurg (Inpatient). - Status is Inpatient Admission. rr5 - Condition is Stable. - Problem is new. - Symptoms have improved. Signatures: Dispatcher [employer] EDMS Kang Ayala MD MD cha Roszak, Josh, PA PA jr8 Tia Escobedo, RN RN cg Lyly Valverde RN RN tw2 Kavon Park RN RN rr5 Catalino Castellanos RN rv Corrections: (The following items were deleted from the chart) 11/06 21:02 17:30 Hospitalization Ordered by A Brandi REDMAN for Inpatient Admission. Preliminary cg diagnosis is Cellulitis of right lower limb. Bed requested for Telemetry/MedSurg (Inpatient). Status is Inpatient Admission. Condition is Stable. Problem is new. Symptoms have improved. jr8 21:18 21:02 11/06/2020 17:30 Hospitalization Ordered by A Brandi REDMAN for Inpatient Admission. rr5 Preliminary diagnosis is Cellulitis of right lower limb. Bed requested for Telemetry/MedSurg (Inpatient). Status is Inpatient Admission. Condition is Stable. Problem is new. Symptoms have improved. cg
--- NOTE | 2020-11-06 17:30 | ER ---
Nurse's Notes [facility] Name: Hosea Manriquez Age: 65 yrs Sex: Male : 1955 Arrival Date: 11/06/2020 Time: 17:10 Bed 5 Private MD: Diagnosis: Cellulitis of right lower limb Presentation: 11/06 17:11 Chief complaint: EMS states: pt c/o LEFT leg pain with redness and swelling that just tw2 came on suddenly today, pt states this has happened before and his doctor told him to come straight to the ER, said he has not had a DVT before, hx: htn, polio, brace Left leg. Coronavirus screen: At this time, the client does not indicate any symptoms associated with coronavirus-19. Ebola Screen: Patient denies travel to an Ebola-affected area in the 21 days before illness onset. Risk Assessment: Do you want to hurt yourself or someone else? Patient reports no desire to harm self or others. Onset of symptoms was November 06, 2020. 17:11 Method Of Arrival: EMS: [facility] tw2 17:11 Acuity: SABAS 3 tw2 17:21 Initial Sepsis Screen: Does the patient meet any 2 criteria? No. Patient's initial tw2 sepsis screen is negative. Does the patient have a suspected source of infection? Yes: Skin breakdown/wound. Triage Assessment: 17:11 General: Appears in no apparent distress. slender, Behavior is calm, cooperative, tw2 appropriate for age. Pain: Complains of pain in right nunez. EENT: No signs and/or symptoms were reported regarding the EENT system. Neuro: Level of Consciousness is awake, alert, obeys commands, Oriented to person, place, time, situation. Cardiovascular: Capillary refill < 3 seconds Patient's skin is warm and dry. Respiratory: Airway is patent Respiratory effort is even, unlabored, Respiratory pattern is regular, symmetrical. GI: No signs and/or symptoms were reported involving the gastrointestinal system. : No deficits noted. Derm: increased redness and swelling noted to RIGHT LE, pt states "it just came on all of a sudden about 2pm today". Historical: - Allergies: 17:15 Benadryl; tw2 17:15 Codeine; tw2 17:15 PENICILLINS; tw2 - Home Meds: 17:15 lisinopril Oral [Active]; tw2 - PMHx: 17:15 Chronic headaches; SCIATIC NERVE PAIN; Hypertension; High Cholesterol; Polio; tw2 - PSHx: 17:15 Knee surgery; foot surgery; tw2 - Immunization history:: Adult Immunizations. - Social history:: Smoking status: . Screenin:15 Abuse screen: Denies threats or abuse. Nutritional screening: No deficits noted. tw2 Tuberculosis screening: No symptoms or risk factors identified. Fall Risk None identified. Secondary diagnosis (15 points) impaired mobility, Ambulatory Aid- Crutches/Cane/Walker (15 pts). Assessment: 17:15 Reassessment: provider at bedside at this time. tw2 17:22 Reassessment: see triage assessment. tw2 18:26 Reassessment: Patient appears in no apparent distress at this time. No changes from tw2 previously documented assessment. Patient and/or family updated on plan of care and expected duration. Pain level reassessed. Patient is alert, oriented x 3, equal unlabored respirations, skin warm/dry/pink. 19:30 General: Appears in no apparent distress. comfortable, Behavior is calm, cooperative, rr5 appropriate for age. 19:30 Pain: Complains of pain in right leg. Neuro: Level of Consciousness is awake, alert, rr5 obeys commands, Oriented to person, place, time. Cardiovascular: Capillary refill < 3 seconds Patient's skin is warm and dry. Respiratory: Airway is patent Respiratory effort is even, unlabored, Respiratory pattern is regular, symmetrical. GI: No signs and/or symptoms were reported involving the gastrointestinal system. : No signs and/or symptoms were reported regarding the genitourinary system. EENT: No signs and/or symptoms were reported regarding the EENT system. Derm: Skin is red, right lower leg Skin temperature is warm. Musculoskeletal: Capillary refill < 3 seconds. 20:30 Reassessment: Patient appears in no apparent distress at this time. Patient is alert, rr5 oriented x 3, equal unlabored respirations, skin warm/dry/pink. awaiting for room assignment. 21:18 Reassessment: Patient appears in no apparent distress at this time. Patient is alert, rr5 oriented x 3, equal unlabored respirations, skin warm/dry/pink. Vital Signs: 17:20 BP 149 / 79; Pulse 78; Resp 17; Temp 101.5(O); Pulse Ox 98% on R/A; Weight 65.77 kg; tw2 Height 60 in. (152.40 cm) (R); 18:26 BP 136 / 78; Pulse 78; Resp 17; Pulse Ox 100% on R/A; tw2 19:15 BP 132 / 78; Pulse 73; Resp 16; Pulse Ox 99% on R/A; rv 20:00 BP 143 / 77; Pulse 75; Resp 15; Pulse Ox 96% on R/A; rv 20:25 Temp 98.5(O); rv 21:11 BP 139 / 69; Pulse 66; Resp 19; Pulse Ox 100% ; rr5 17:20 Body Mass Index 28.32 (65.77 kg, 152.40 cm) tw2 ED Course: 17:10 Patient arrived in ED. tw2 17:13 Kang Ayala MD is Attending Physician. [facility] 17:14 Rene Swift PA is PSYCHIATRICP. jr8 17:14 Triage completed. tw2 17:17 Arm band placed on. tw2 17:17 Bed in low position. Call light in reach. Side rails up X2. Pulse ox on. NIBP on. tw2 17:20 Lyly Valverde, KIRA is Primary Nurse. tw2 17:29 Antonia Paz MD is Hospitalizing Provider. jr8 17:40 Inserted saline lock: 20 gauge in left antecubital area, using aseptic technique. Blood tw2 collected. 21:11 No provider procedures requiring assistance completed. Patient admitted, IV remains in rr5 place. intact, No redness/swelling at site. Administered Medications: 17:40 Drug: Tylenol 1000 mg Route: PO; tw2 20:24 Follow up: Response: No adverse reaction; Temperature is decreased rv 17:40 Drug: NS 0.9% 1000 ml Route: IV; Rate: 1000 ml; Site: left antecubital; tw2 20:24 Follow up: IV Status: Completed infusion; IV Intake: 1000ml rv 17:51 Not Given (md discretion): LevaQUIN (levofloxacin) 750 mg 150 ml IVPB once over 90 mins tw2 18:06 Drug: Cefepime 1 grams {Note: IVP available only.} Route: IVPB; Rate: 200 ml/hr; tw2 Infused Over: 5 mins; Site: left antecubital; 18:11 Follow up: Response: No adverse reaction; IV Status: Completed infusion; IV Intake: [id number] 18:20 Drug: vancoMYCIN 1 grams Route: IVPB; Infused Over: 2 hrs; Site: left antecubital; tw2 20:24 Follow up: IV Status: Completed infusion; IV Intake: 250ml rv 19:26 Drug: Potassium Chloride 40 mEq Route: PO; rr5 20:23 Follow up: Response: No adverse reaction rv Intake: 18:11 IV: 10ml; Total: 10ml. tw2 20:24 IV: 1000ml; Total: 1010ml. rv 20:24 IV: 250ml; Total: 1260ml. rv Outcome: 17:30 Decision to Hospitalize by Provider. jr8 21:16 Admitted to Med/surg accompanied by tech, via wheelchair, room 210, with chart, Report rr5 called to [facility] 21:16 Condition: stable 21:16 Instructed on the need for admit. 21:18 Patient left the ED. rr5 Signatures: Kang Ayala MD MD cha Roszak, Josh, PA PA jr8 Lyly Vlaverde, RN RN tw2 Catalino Castellanos, RN RN rv Kavon [place], RN RN rr5
[2020-11-06] MEDS ORDERED: NA CHLORIDE 0.9% 1,000 ML ONE ×2 (17:43→21:45)
[2020-11-06] MEDS ORDERED: Levofloxacin 750mg IV 0 MG/0 ML BAG IV ONE (17:43)
[2020-11-06] MEDS ORDERED: ACETAMINOPHEN 500 MG TAB ONE (17:43)
[2020-11-06] MEDS ORDERED: VANCOMYCIN/NS 1 gm 1 GM/250 ML BAG IVPB ONE (18:00)
[2020-11-06 18:04] LABS: Absolute Lymphocytes (CBC) 0.3 K/uL (0.7-4.9); Basophils % 0.2 % (0-1.3); Hematocrit 39.4 % (39.6-49.0); Lymphocytes % 1.9 % (15.3-44.8); MPV 8.2 fL (7.6-11.3)
[2020-11-06] MEDS ORDERED: CEFEPIME/SWI 1gm 10 ML ONE (18:11)
[2020-11-06 18:59] LABS: ALT/SGPT 23 U/L (12-78); AST/SGOT 18 U/L (15-37); Albumin 3.9 g/dL (3.4-5.0); Alkaline Phosphatase 90 U/L (45-117); BUN Blood Urea Nitrogen 16 mg/dL (7-18); Bicarbonate 24 mmol/L (21-32); Bilirubin Direct 0.2 mg/dL (0-0.2); Glucose Level 102 mg/dL (74-106); Potassium 3.3 mmol/L (3.5-5.1); Protein, Total 7.8 g/dL (6.4-8.2); Sodium Level 141 mmol/L (136-145)
[2020-11-06] MEDS ORDERED: POTASSIUM CL SA 10 MEQ TAB PO ONE (19:28)
[2020-11-06 19:39] LABS: Blood Morphology Comment NOT SEEN (NOT SEEN); Platelet Estimate ADEQ; White Blood Cell Scan OK (OK)
[2020-11-06] MEDS ORDERED: NA CHLORIDE 0.9% 1,000 ML IV SCH (21:19)
[2020-11-06] MEDS ORDERED: MORPHINE 2 MG/ML SYR IV PRN (21:19)
[2020-11-06] MEDS ORDERED: ONDANSETRON 4 MG/2 ML VIAL IV PRN (21:19)
[2020-11-06] MEDS ORDERED: VANCOMYCIN 1 GM/VIAL ONE ×2 (21:34→22:34)
[2020-11-06] MEDS ORDERED: NA CHLORIDE 0.9% 0 ML ONE (21:45)
[2020-11-06] MEDS ORDERED: VANCOMYCIN 250 MG in NA CHLORIDE 0.9% 100 ML IVPB ONE (21:45)
[2020-11-06 21:57] VITALS: BMI 27.5
[2020-11-06] MEDS ORDERED: NA CHLORIDE 0.9% 100 ML ONE (22:35)
[2020-11-07] MEDS: ACETAMINOPHEN 500 MG TAB PO PRN ×3 (00:12→20:04)
[2020-11-07] MEDS ORDERED: VANCOMYCIN/NS 1 gm 1 GM/250 ML BAG IVPB SCH (06:00)
[2020-11-07 06:20] LABS: Absolute Lymphocytes (CBC) 0.3 K/uL (0.7-4.9); Basophils % 0.2 % (0-1.3); Hematocrit 35.7 % (39.6-49.0); Lymphocytes % 1.6 % (15.3-44.8); RBC Red Blood Cell Count 4.34 M/uL (4.33-5.43)
[2020-11-07 06:56] LABS: BUN Blood Urea Nitrogen 12 mg/dL (7-18); Bicarbonate 21 mmol/L (21-32); Glucose Level 102 mg/dL (74-106); Potassium 3.6 mmol/L (3.5-5.1); Sodium Level 141 mmol/L (136-145)
[2020-11-07] MEDS ORDERED: NA CHLORIDE 0.9% 1,000 ML IV SCH (08:00)
[2020-11-07] MEDS: SUMATRIPTAN SUCCI 50 MG TAB PO SCH ×2 (09:00→11:00)
[2020-11-07] MEDS ORDERED: CEFEPIME 1 GM/VIAL IV SCH (09:00)
[2020-11-07] MEDS: VANCOMYCIN 1.25 GM in NA CHLORIDE 0.9% 250 ML IVPB SCH ×2 (10:16→21:55)
--- NOTE | 2020-11-07 10:27 | P.HP ---
Certification for Inpatient Patient admitted to: Inpatient With expected LOS: >2 Midnights Practitioner: I am a practitioner with admitting privileges, knowledge of patient current condition, hospital course, and medical plan of care. Services: Services provided to patient in accordance with Admission requirements found in Title 42 Section 412.3 of the Code of Federal Regulations Patient History Date of Service: 11/07/20 Reason for admission: R LEG CELLULITIS History of Present Illness: MR. BROOKS IS 65 YEARS OLD PATIENT OF DR. LEAL WHO COMES IN FOR RECURRENT CELLULITIS. HE HAS HAD LYMPHEDEMA OF R LEG FOR LONG DURATION SINCE HE HAD INJURY YEARS AGO. HE HAS BEEN TO [facility]. 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 HE ASKED ME IF HE CAN TAKE BEANO THAT IS 840 MG OF ASPIRIN HE TAKES ABOUT FOUR TIMES A DAY FOR TENSION HEADACHES. I ASKED HIM TO QUIT AND LET ME WORK ON HEADACHE TREATMENT AND PREVENTION. HE HAD MRI OF BRAIN 8 YEARS AGO THAT WAS NEGATIVE. Allergies Penicillins Allergy (Severe, Verified 11/06/20 21:47) Unknown tramadol Allergy (Severe, Verified 11/06/20 21:47) hallucinations codeine Allergy (Intermediate, Verified 11/06/20 21:47) Hives diphenhydramine HCl [From Benadryl] Allergy (Intermediate, Verified 11/06/20 21:47) Rash Home Medications: Aspirin/Caffeine [Bc Pain Relief Powder Packet] 1 each PO TID 11/05/19 Atorvastatin Calcium 10 mg PO BEDTIME 11/05/19 Amlodipine Besylate 10 mg PO BEDTIME 08/15/20 lisinopriL [Lisinopril] 20 mg PO DAILY 08/15/20 - Past Medical/Surgical History Has patient received pneumonia vaccine in the past: No Diabetic: No -: imcfmd-[id number]-jsoxtmn -: HTN -: Polio -: lymphedema-right leg -: HLD -: Sleep Apnea -: IBS -: Chronic Headaches -: brace left leg -: Bilateral leg sx -: plate in neck -: plate in left leg -: right knee sx - Family History Father -: Heart disease biological parents Notes: none - Social History Smoking Status: Never smoker Alcohol use: No CD- Drugs: No Caffeine use: Yes Place of Residence: Home Review of Systems 10-point ROS is otherwise unremarkable General: Weakness, As per HPI Physical Examination - Vital Signs Temperature: 99.0 F Blood Pressure: 141/65 Pulse: 78 Respirations: 16 Pulse Ox (%): 98 - Physical Exam General: Oriented x3, Moderate distress HEENT: Atraumatic, PERRLA, Mucous membr. moist/pink, EOMI, Sclerae nonicteric Neck: Supple, 2+ carotid pulse no bruit, No LAD, Without JVD or thyroid abnormality Respiratory: Clear to auscultation bilaterally, Normal air movement Cardiovascular: Regular rate/rhythm, Normal S1 S2, Edema (R 2+) Gastrointestinal: Normal bowel sounds, No tenderness Musculoskeletal: No tenderness Integumentary: No rashes Neurological: Abnormal gait (WEAK AND WASTED MUSCLES IN LEGS FROM POST POLIO SYNDROME. ) Lymphatics: No axilla or inguinal lymphadenopathy Assessment and Plan - Problems (Diagnosis) (1) Cellulitis of right leg Current Visit: Yes Status: Acute Plan: ABX VANCOMYCIN AND CEFEPIME HAS BEEN GIVE BEFORE. HE MAY DO WELL ON BACTRIM AT DISCHARGE. (2) Lymph edema Current Visit: Yes Status: Chronic Plan: HIS LYMPHEDEMA IS NOT CONTROLLED EVEN THOUGH HE USES FARROW WRAPS. THIS MAY BE FROM USING EXCESSIVE ASPIRIN DAILY AND ALSO MAY NEED ADJUSTMENT OR RETRAINING BY SIMONE FERMIN. (3) Tension headache Current Visit: Yes Status: Chronic Plan: SINCE HE IS USING 3 GM OF ASPIRIN DAILY. I ADVISE HIM TO QUIT TO AVOID COMPLICATIONS. HE WILL TRY MEDS SUMATRIPTAN AND ELAVIL IN ADDITION TO INDERAL AND I WILL FU IN AM. (4) Post-polio syndrome Current Visit: Yes Status: Acute - Advance Directives Does patient have a Living Will: No Does patient have a Durable POA for Healthcare: No
[2020-11-07] MEDS ORDERED: ENOXAPARIN 40 MG/0.4 ML SQ SCH (17:00)
[2020-11-07] MEDS ORDERED: CEFEPIME/SWI 1gm 10 ML IV SCH (18:00)
[2020-11-07] MEDS ORDERED: AMITRIPTYLINE 10 MG TAB PO SCH (21:00)
[2020-11-07] MEDS ORDERED: ATORVASTATIN 10 MG TAB PO SCH (21:00)
[2020-11-07] MEDS ORDERED: AMLODIPINE 5 MG TAB PO SCH (21:00)
[2020-11-07 21:08] VITALS: O2SAT 93
[2020-11-07] MEDS: PROPRANOLOL HCL 10 MG TAB PO SCH (21:55)
[2020-11-07] MEDS ORDERED: VANCOMYCIN 1.25 GM in NA CHLORIDE 0.9% 250 ML IVPB SCH (22:00)
[2020-11-08] MEDS: ACETAMINOPHEN 500 MG TAB PO PRN (05:12)
[2020-11-08] MEDS ORDERED: SUMATRIPTAN SUCCI 50 MG TAB PO PRN (07:54)
[2020-11-08] MEDS: PROPRANOLOL HCL 10 MG TAB PO SCH (08:19)
[2020-11-08] MEDS ORDERED: lisinopriL 20 MG TAB PO SCH (09:00)
[2020-11-08] MEDS: VANCOMYCIN 1.25 GM in NA CHLORIDE 0.9% 250 ML IVPB SCH (10:00)
[2020-11-08 10:28] LABS: BUN Blood Urea Nitrogen 14 mg/dL (7-18); Bicarbonate 24 mmol/L (21-32); Glucose Level 100 mg/dL (74-106); Potassium 3.3 mmol/L (3.5-5.1); Sodium Level 144 mmol/L (136-145)
[2020-11-08 10:38] LABS: Absolute Lymphocytes (CBC) 0.9 K/uL (0.7-4.9); Basophils % 0.4 % (0-1.3); Hematocrit 38.2 % (39.6-49.0); Lymphocytes % 10.2 % (15.3-44.8)
[2020-11-08] MEDS ORDERED: POTASSIUM CL SA 10 MEQ TAB PO ONE ×2 (11:02→11:40)
--- NOTE | 2020-11-08 11:09 | P.DS ---
Admission Date: 11/06/20 Discharge Date: 11/08/20 Disposition: ROUTINE DISCHARGE Discharge Condition: FAIR Reason for Admission: R LEG CELLULITIS - Problems (1) Cellulitis of right leg Current Visit: Yes Status: Acute (2) Lymph edema Current Visit: Yes Status: Chronic (3) Tension headache Current Visit: Yes Status: Chronic (4) Post-polio syndrome Current Visit: Yes Status: Acute Brief History of Present Illness: MR. BROOKS IS 65 YEARS OLD PATIENT OF DR. LEAL WHO COMES IN FOR RECURRENT CELLULITIS. HE HAS HAD LYMPHEDEMA OF R LEG FOR LONG DURATION SINCE HE HAD INJURY YEARS AGO. HE HAS BEEN TO [facility]. 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 HE ASKED ME IF HE CAN TAKE BEANO THAT IS 840 MG OF ASPIRIN HE TAKES ABOUT FOUR TIMES A DAY FOR TENSION HEADACHES. I ASKED HIM TO QUIT AND LET ME WORK ON HEADACHE TREATMENT AND PREVENTION. HE HAD MRI OF BRAIN 8 YEARS AGO THAT WAS NEGATIVE. Hospital Course: PEYMAN IS DOING GREAT. HE CELLULITIS HAS IMPROVED SIGNIFICANTLY AND SO HAS WBC COUNT DOWN TO NORMAL. HE CONTINUES TO HAVE EDEMA ADN SO I EXPLIAINED THAT THE FARROW WRAPS ARE NOT WORKING AND HE WILL CALL [facility]ERMIN. ALSO [facility] WILL GIVE EDEMA SO IT HAS BEEN CHANGED. I GAVE HIM INDERAL AND ELAVIL TO PREVENT H EADACHES AND BP IS DOWN JUST WITH THAT IN PLACE OF [facility]. HE TAKES 3 GM OF ASPRING DAILY FOR HEADACHES BUT HOPEFULLY HE WILL NOT NEED IT ANY LONGER. FU WITH DR. LEAL. HE HAS HAD IBS FOR LONG DURATION AND DR. LEAL IS WORKING ON IT. HE HAD LOW GRADE FEVER BUT HE FEELS GREAT SO HE CAN CONTINUE ORAL ABX. HE IS EAGER TO GO HOME. Vital Signs/Physical Exam: Temp Pulse Resp BP Pulse Ox 98.7 F 53 18 108/55 L 97 11/08/20 08:00 11/08/20 08:19 11/08/20 08:00 11/08/20 08:19 11/08/20 08:00 Laboratory Data at Discharge: WBC 8.40 K/uL (4.3-10.9) D 11/08/20 10:25 Hgb 12.4 g/dL (13.6-17.9) L 11/08/20 10:25 Hct 38.2 % (39.6-49.0) L 11/08/20 10:25 Plt Count 196 K/uL (152-406) 11/08/20 10:25 Sodium 144 mmol/L (136-145) 11/08/20 09:09 Potassium 3.3 mmol/L (3.5-5.1) L 11/08/20 09:09 BUN 14 mg/dL (7-18) 11/08/20 09:09 Creatinine 0.73 mg/dL (0.55-1.3) 11/08/20 09:09 Glucose 100 mg/dL (74-106) 11/08/20 09:09 Total Bilirubin 1.0 mg/dL (0.2-1.0) 11/06/20 17:38 AST 18 U/L (15-37) 11/06/20 17:38 ALT 23 U/L (12-78) 11/06/20 17:38 Alkaline Phosphatase 90 U/L (45-117) 11/06/20 17:38 Home Medications: Atorvastatin Calcium 10 mg PO BEDTIME 11/05/19 lisinopriL [Lisinopril] 20 mg PO DAILY 08/15/20 Amitriptyline [Elavil*] 25 mg PO BEDTIME #90 tab 11/08/20 Ciprofloxacin HCl [Cipro 500 MG Tablet] 500 mg PO BID #14 tab 11/08/20 Propranolol [Inderal*] 10 mg PO BID #60 tab 11/08/20 Smz./Tmp. [Bactrim Ds 800 MG/160 MG] 1 tab PO BID #14 tab 11/08/20 Sumatriptan [Imitrex*] 50 mg PO PRN PRN #9 tab 11/08/20 New Medications: Smz./Tmp. [Bactrim Ds 800 MG/160 MG] 1 tab PO BID #14 tab Ciprofloxacin HCl [Cipro 500 MG Tablet] 500 mg PO BID #14 tab Amitriptyline [Elavil*] 25 mg PO BEDTIME #90 tab Sumatriptan [Imitrex*] 50 mg PO PRN PRN #9 tab PRN Reason: Pain Scale 8-10 (Severe) Propranolol [Inderal*] 10 mg PO BID #60 tab Followup: Quentin Leal MD [Primary Care Provider] -
[2020-11-08 15:01] VITALS: BP 130/62; TEMP 99.1
[2020-11-09] MEDS ORDERED: VANCOMYCIN 1.25 GM in NA CHLORIDE 0.9% 250 ML IVPB SCH (10:00)
== END 2020-11-08 12:18 | disposition home or self-care (01) | DRG 603 ==
LOC: ER 17:10 → ERHOLD 17:32 → 2ND 21:17
PROVIDERS: ADMIT Internal Medicine; ATTEND Internal Medicine
DX: L03.115 Cellulitis of right lower limb (principal); G44.209 Tension-type headache, unspecified, not intractable; I89.0 Lymphedema, not elsewhere classified; E78.5 Hyperlipidemia, unspecified; G14 Postpolio syndrome; I10 Essential (primary) hypertension; Z88.5 Allergy status to narcotic agent; Z88.0 Allergy status to penicillin; Z88.8 Allergy status to other drugs, medicaments and biological substances; Z79.82 Long term (current) use of aspirin; Z79.899 Other long term (current) drug therapy; Z20.822 Contact with and (suspected) exposure to COVID-19
CPT/HCPCS: 36415; 80048; 80076; 80202; 84145; 85025; 87040; 96361; 96365; 96366; 96375; 99285; J0692; J1650; J3370; J7030; J7040; J7050; U0003

== ENCOUNTER 2021-01-29 19:56 | Inpatient (IN) | payer OTHER ==
--- OUTSIDE RECORDS SUMMARY | 2021-01-29 19:59 | XMS REPORT | Continuity of Care Document ---
:1955 Author Organization [facility] t Address [address] [place] [address] Care Team Providers Name Role Phone Lab, [...] Procedure Date / Time Performed Performing Clinician [facility] [U] XRAY KNEE 1 OR 2 2018-05-09 00:00:00 [facility] LEFT [id number] Physicians [U] XRAY FOOT MIN 3 2018-04-05 00:00:00 [facility] ty of [facility] LEFT [id number] Physicians [U] XRAY KNEE 1 OR 2 2018-03-30 00:00:00 [facility] it[facility] LEFT [id number] Physicians Encounters Start End Encounter Admission Attending Care Care Encounter Source Date/Time Date/Time Type Type Clinicians Facility Department ID 2020-08-14 2020-08-14 Laboratory Lab, [facility] [id number] 13:24:17 13:44:17 Only Fam [facility] [id number] [place] [id number] [facility] [place] [id number] nal [address] 2020-08-14 2020-08-14 Letter Doctor JAGDEEP [id number] 00:00:00 00:00:00 (Out) Unassigned, [place] [id number] [place] [facility] [id number] 2018-05-17 2018-05-17 Appointmen [facility] [id number] Univers 11:15:00 11:15:00 t; JUANA AGUIRRE ity o f JOSHUA, M.D. [place] [facility] 2018-04-05 2018-04-05 Appointmen [facility]EVIN WU [facility] [id number] Univers 11:30:00 11:30:00 t; JAMAAL WU ity of AUDREY, P.A. [place] P[facility] ans 2018-03-08 2018-03-08 Appointmen KEVIN AGUIRRE [facility] [id number] Univers 11:30:00 11:30:00 t; JUANA AGUIRRE ity o f JOSHUA, M.D. [place] M[facility] ans Results Test Description Test Time Test Comments Results Result [facility] Comments [U] XRAY KNEE 1 2018-03-08 Images Universit y of OR 2 VWS LEFT 11:42:00 acquired, not [place] [address] reported on Physicians this accession number.
[2021-01-29 22:08] LABS: Absolute Lymphocytes (CBC) 0.3 K/uL (0.7-4.9); Basophils % 0.3 % (0-1.3); Hematocrit 43.6 % (39.6-49.0); Lymphocytes % 1.4 % (15.3-44.8)
[2021-01-29 22:23] LABS: BUN Blood Urea Nitrogen 19 mg/dL (7-18); Bicarbonate 26 mmol/L (21-32); Glucose Level 114 mg/dL (74-106); Potassium 3.8 mmol/L (3.5-5.1); Sodium Level 136 mmol/L (136-145)
[2021-01-29] MEDS ORDERED: ACETAMINOPHEN 500 MG TAB ONE (22:28)
[2021-01-29 22:51] LABS: Urine Blood 1+ (Negative); Urine Glucose Negative (Negative); Urine Protein Negative (Negative)
[2021-01-29 22:52] LABS: Blood Morphology Comment NOT SEEN (NOT SEEN); Platelet Estimate ADEQ
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
[2021-01-29] MEDS ORDERED: VANCOMYCIN 1 GM/VIAL ONE (23:55)
[2021-01-29] MEDS ORDERED: CEFEPIME/SWI 1gm 10 ML ONE (23:55)
[2021-01-29] MEDS ORDERED: NA CHLORIDE 0.9% 250 ML ONE (23:55)
[2021-01-30 00:56] VITALS: BMI 26.4
[2021-01-30] MEDS ORDERED: VANCOMYCIN/NS 1 gm 1 GM/250 ML BAG IVPB SCH (02:04)
[2021-01-30] MEDS ORDERED: ACETAMINOPHEN 500 MG TAB PO PRN (02:04)
[2021-01-30] MEDS ORDERED: VANCOMYCIN 250 MG in NA CHLORIDE 0.9% 100 ML IVPB ONE (03:30)
[2021-01-30 04:54] LABS: Absolute Lymphocytes (CBC) 0.3 K/uL (0.7-4.9); Basophils % 0.2 % (0-1.3); Hematocrit 41.1 % (39.6-49.0); Lymphocytes % 1.9 % (15.3-44.8); MPV 7.4 fL (7.6-11.3)
[2021-01-30 05:05] LABS: BUN Blood Urea Nitrogen 15 mg/dL (7-18); Bicarbonate 26 mmol/L (21-32); Glucose Level 119 mg/dL (74-106); Potassium 3.6 mmol/L (3.5-5.1); Sodium Level 138 mmol/L (136-145)
[2021-01-30] MEDS ORDERED: VANCOMYCIN 1 GM/VIAL ONE (05:24)
[2021-01-30] MEDS ORDERED: NA CHLORIDE 0.9% 100 ML ONE (05:24)
[2021-01-30] MEDS ORDERED: SUMATRIPTAN SUCCI 50 MG TAB PO PRN (08:53)
[2021-01-30] MEDS ORDERED: CEFEPIME 1 GM/VIAL IV SCH (09:00)
[2021-01-30] MEDS: ENOXAPARIN 40 MG/0.4 ML SQ SCH (10:04)
[2021-01-30] MEDS: PROPRANOLOL HCL 10 MG TAB PO SCH ×2 (10:04→20:42)
[2021-01-30] MEDS: lisinopriL 20 MG TAB PO SCH (10:04)
[2021-01-30] MEDS: CEFEPIME/SWI 1gm 10 ML IVP SCH ×2 (10:58→20:35)
--- NOTE | 2021-01-30 11:21 | HP ---
Date of Admission: 01/29/2021 Chief Complaint: Fever, chills, and redness of right leg. History Of Present Illness: This is a 65-year-old male patient who has cellulitis of right lower ext remity with lymphedema and has had multiple occasions of this cellulitis problem. Was doing fine, in his usual state of health until yesterday all of a sudden he started to have redness of his skin on the right lower extremity associated with fever and chills and he came into emergency room. After he was evaluated, he was admitted to the hospital with cellulitis of right lower extremity. Denies any shortness of breath. No nausea, no vomiting. When I saw him this morning, he was in the emergency room. No new complaints or problems reported overnight. Allergies: TO PENICILLIN, DETAILS UNKNOWN; DOXYCYCLINE CAUSING CHEST PAIN; BENADRYL CAUSING RASH AND HIVES. Medications: ProAir HFA inhaler 2 puffs 4 times a day as needed, amitriptyline 25 mg at bedtime, aml odipine , Symbicort 160 mcg inhaler takes 2 puffs by mouth 2 times a day, lansoprazole 30 m g p.o. daily, Imitrex 50 mg every 2 hours as needed for migraine headache, vitamin B12 1 mg p.o. libertad anju. Review of Systems: Constitutional: As mentioned above. Dermatology: As mentioned above. HEEL SEWER: Has weakness of both lower extremities due to post-polio weakness. All other systems reviewed and negative. Past Medical History: Significant for allergic rhinitis, mild persistent asthma, hypertension, hyper lipidemia, gastroesophageal reflux disease, diverticulosis, anxiety, history of recurrent cellulitis of the right lower extremity in the last 2 years or so. Past Surgical History: Cervical spine surgery, knee surgery, multiple leg surgeries during childhood due to polio. Family History: Father had coronary artery disease. Mother has hypertension, hyperlipidemia. Social History: Negative for smoking and alcohol use. Physical Examination: Vital Signs: Temperature 99.7, pulse 80, respiratory rate 18, blood pressure 155/94, oxygen saturati on 95%. Height 5 feet 1 inch, weight 140 pounds. General: Awake, alert, oriented, not in distress. HEENT: Head atraumatic, normocephalic. Conjunctivae nonerythematous. Sclerae white. Mouth, no thr ush or edema noted. Ears/Nose, no mass, lesion, discharge noted. Neck: Supple. No JVD, lymph nodes, bruit, thyromegaly noted. Lungs: Bilateral good equal air entry. Clear to auscultation. No rhonchi. No rales. Heart: Normal heart sounds, no murmur or gallop. Abdomen: Soft, bowel sounds normal. No guarding, rigidity, tenderness, mass, hepatosplenomegaly, dis tention, or bruit noted. Extremities: No leg edema. No calf tenderness. Skin: Examination shows evidence of redness of skin involving entire right lower extremity between k nee and toes and also involving the lower part of the thigh on the right leg. No open wound. Right leg also has mild edema, which is chronic due to his lymphedema problem. Skin is warm to touch in th e right lower extremity. No evidence of any pus collection. No tenderness. Neuro: No focal neurological deficit. Chest: Unremarkable. External Genitalia: Deferred. Rectal: Deferred. HEEL SEWER: The patient has weakness of both lower extremities due to post-polio syndrome. Laboratory Data: Yesterday; white count 22, hemoglobin 14.6, platelets 321. Today; white count 16.6 , hemoglobin 13.7, platelets 261. Yesterday; sodium 136, potassium 3.8, chloride 103, bicarb 26, BUN 19, creatinine 0.83, glucose 114. Today; sodium 138, potassium 3.6, chloride 107, bicarb 26, BUN 15 , creatinine 0.6, glucose 119. Urinalysis; trace ketones, 1+ blood, otherwise negative. COVID-[address] negative. Impression: 1.Cellulitis, right lower extremity. 2.Rule out sepsis. 3.Hypertension. 4.Hyperlipidemia. 5.Mild persistent asthma. 6.Gastroesophageal reflux disease. 7.Diverticulosis. 8.Migraine. 9.Lymphedema, right lower extremity. Plan: Admit the patient to hospital for further evaluation and management of this problem. The allie ent is appropriate for inpatient and is expected to spend 2 midnights in hospital. We will continue his home medications per order. Empiric antibiotic, vancomycin and cefepime were started, we will co ntinue that. Follow up on culture results and if culture grows any particular bacteria, then we will adjust antibiotic according to the culture, otherwise continue empiric antibiotics. Plan of treatme nt discussed with the patient. We will see him tomorrow morning for followup. DVT prophylaxis will be given using Lovenox per order. JG/KRISTY Voice ID: [id number]
[2021-01-30] MEDS: VANCOMYCIN 1.25 GM in NA CHLORIDE 0.9% 250 ML IVPB SCH (15:00)
[2021-01-30] MEDS: AMITRIPTYLINE 25 MG TAB PO SCH (20:35)
[2021-01-30] MEDS: ATORVASTATIN 10 MG TAB PO SCH (20:35)
[2021-01-30] MEDS ORDERED: VANCOMYCIN 1.25 GM in NA CHLORIDE 0.9% 250 ML IVPB SCH (22:00)
[2021-01-31] MEDS: VANCOMYCIN 1.25 GM in NA CHLORIDE 0.9% 250 ML IVPB SCH ×2 (03:00→15:00)
[2021-01-31] MEDS: lisinopriL 20 MG TAB PO SCH ×2 (09:00→13:10)
[2021-01-31] MEDS: CEFEPIME/SWI 1gm 10 ML IVP SCH ×2 (09:00→20:44)
[2021-01-31] MEDS: PROPRANOLOL HCL 10 MG TAB PO SCH ×3 (09:00→21:00)
--- NOTE | 2021-01-31 12:05 | PN ---
Date of Progress Note: 01/31/2021 Subjective: The patient was seen this morning for followup. No new complaints, problems reported by the patient. Overall he feels better today than yesterday. Denies any chest pain, shortness of niko ath, nausea, vomiting. Objective: Vital Signs: Reviewed. HEENT: Unremarkable. Lungs: Clear to auscultation. Heart: Sounds normal. Abdomen: Soft. Bowel sounds normal. No guarding, rigidity, tenderness, distention. Extremities: Right lower extremity edema has improved but still has trace edema and redness from rig ht lower extremity, is better today than yesterday. Impression: 1.Cellulitis, right lower extremity. 2.Lymphedema, right leg. 3.Hypertension. Plan: We will continue current medications. The patient still has low-grade fever anywhere between 99-100 degree Fahrenheit, and we will continue current IV antibiotics. Blood culture so far has shayla ined negative. We will repeat blood work tomorrow morning. Depending on his condition tomorrow, we will decide about possible discharge tomorrow. Details were discussed with the patient. The patient 's blood pressure has been running on the lower side between 100-110 systolic and we will hold his li sinopril if systolic blood pressure is less than 120. JG/MODL Voice ID: [id number] Report ID: [id number]
[2021-01-31] MEDS: ENOXAPARIN 40 MG/0.4 ML SQ SCH (13:10)
[2021-01-31] MEDS: ATORVASTATIN 10 MG TAB PO SCH (20:45)
[2021-01-31] MEDS: AMITRIPTYLINE 25 MG TAB PO SCH (20:45)
[2021-01-31 21:48] VITALS: O2SAT 97
[2021-02-01] MEDS: VANCOMYCIN 1.25 GM in NA CHLORIDE 0.9% 250 ML IVPB SCH (03:00)
[2021-02-01 06:44] LABS: Absolute Lymphocytes (CBC) 1.1 K/uL (0.7-4.9); Basophils % 0.5 % (0-1.3); Hematocrit 34.8 % (39.6-49.0); Lymphocytes % 19.5 % (15.3-44.8); MPV 7.7 fL (7.6-11.3); RBC Red Blood Cell Count 4.22 M/uL (4.33-5.43)
[2021-02-01 07:11] LABS: BUN Blood Urea Nitrogen 15 mg/dL (7-18); Bicarbonate 26 mmol/L (21-32); Glucose Level 102 mg/dL (74-106); Potassium 3.3 mmol/L (3.5-5.1); Sodium Level 142 mmol/L (136-145)
[2021-02-01 07:52] VITALS: BP 125/68; TEMP 97.4
[2021-02-01] MEDS ORDERED: POTASSIUM CL SA 10 MEQ TAB PO ONE (08:03)
[2021-02-01] MEDS: PROPRANOLOL HCL 10 MG TAB PO SCH (09:00)
[2021-02-01] MEDS: CEFEPIME/SWI 1gm 10 ML IVP SCH (09:00)
[2021-02-01 09:03] LABS: Platelet Estimate ADEQ; White Blood Cell Scan OK (OK)
[2021-02-01 09:04] LABS: Blood Morphology Comment NOT SEEN (NOT SEEN)
[2021-02-01] MEDS: ENOXAPARIN 40 MG/0.4 ML SQ SCH (09:22)
[2021-02-01] MEDS: lisinopriL 20 MG TAB PO SCH (09:22)
--- NOTE | 2021-02-01 19:44 | DS ---
Date of Discharge: 02/01/2021 Disposition: Discharged to go home. Physical Examination: HEENT: Unremarkable. Lungs: Clear to auscultation. Heart: Sounds normal. Abdomen: Soft. Bowel sounds normal. No guarding, rigidity, tenderness, or distention. Extremities: Right leg has very trace leg edema, significantly better than before and redness from r ight lower extremity has shown significant improvement. Has very minimum pink discoloration of right lower extremity, but significantly better than before. Laboratory Data: Upon admission; white count 22.0, hemoglobin 14.6, and platelet count of 321. Toda y; white count 5.6, hemoglobin 11.7, platelets 232. Upon admission; sodium 136, potassium 3.8, chlor helen 103, bicarb 26, BUN 19, creatinine 0.83, glucose 114. Hemoglobin A1c done during this hospital s mckay was normal. This chemistry unremarkable except potassium 3.3 which was corrected with oral repla cement of potassium. Blood cultures remain negative. Hospital Course: A 65-year-old pleasant male patient admitted to the hospital after he started to root ve fever, chills, and redness of the right lower extremity. Please see dictated H and P for more inf ormation. The patient has history of recurrent cellulitis of right lower extremity and he was admitt ed to the hospital with similar problem. After he was evaluated in the ER, he was started on IV vanc omycin and IV cefepime. Overall, his condition improved significantly, blood culture remained negati ve and today he was discharged to go home in stable condition with following discharge medication and instructions. The patient was advised not to work on his car or not to do any yard work while he is on antibiotic and he will see me next week on Monday at office for the followup. Final Diagnoses: 1.Cellulitis, right lower extremity. 2.Hypokalemia. 3.Hypertension. 4.Hyperlipidemia. 5.Mild persistent asthma. 6.Gastroesophageal reflux disease. 7.Diverticulosis. 8.Migraine. 9.Lymphedema, right lower extremity. Discharge Medications And Instructions: 1.Continue all previous home medications. 2.Bactrim DS 1 tablet by mouth 2 times a day for 10 days. 3.Cefuroxime 250 mg by mouth 2 times a day for 10 days. 4.Follow up at my office next week on Monday, which is February 08, 2021 at 10 a.m. JG/KRISTY Voice ID: [id number] Report ID: [id number]
== END 2021-02-01 10:00 | disposition home or self-care (01) | DRG 603 ==
LOC: ER 19:56 → ERHOLD 23:08 → 2ND 01-30 08:35
PROVIDERS: ADMIT Internal Medicine; ATTEND Internal Medicine
DX: L03.115 Cellulitis of right lower limb (principal); I10 Essential (primary) hypertension; E78.5 Hyperlipidemia, unspecified; J45.30 Mild persistent asthma, uncomplicated; K21.9 Gastro-esophageal reflux disease without esophagitis; K57.90 Diverticulosis of intestine, part unspecified, without perforation or abscess without bleeding; G43.909 Migraine, unspecified, not intractable, without status migrainosus; I89.0 Lymphedema, not elsewhere classified; Z88.0 Allergy status to penicillin; Z20.822 Contact with and (suspected) exposure to COVID-19
CPT/HCPCS: 36415; 80048; 80202; 81003; 83036; 83605; 83735; 85025; 87040; 96365; 99285; J0692; J1650; J3370; J7050; U0003

== ENCOUNTER 2021-03-30 11:25 | Inpatient (IN) | payer OTHER ==
[2021-03-30] MEDS ORDERED: ACETAMINOPHEN 500 MG TAB PO PRN (15:05)
[2021-03-30] MEDS ORDERED: VANCOMYCIN/NS 1 gm 1 GM/250 ML BAG IVPB SCH (15:15)
[2021-03-30] MEDS: NA CHLORIDE 0.9% 1,000 ML IV SCH (16:01)
[2021-03-30] MEDS: ENOXAPARIN 40 MG/0.4 ML SQ SCH (16:02)
[2021-03-30 16:30] LABS: Absolute Lymphocytes (CBC) 0.4 K/uL (0.7-4.9); Basophils % 0.3 % (0-1.3); Hematocrit 42.1 % (39.6-49.0); Lymphocytes % 2.6 % (15.3-44.8); MPV 7.8 fL (7.6-11.3); RBC Red Blood Cell Count 5.04 M/uL (4.33-5.43)
[2021-03-30 16:43] LABS: ALT/SGPT 16 U/L (12-78); AST/SGOT 10 U/L (15-37); Albumin 3.6 g/dL (3.4-5.0); Alkaline Phosphatase 86 U/L (45-117); BUN Blood Urea Nitrogen 16 mg/dL (7-18); Bicarbonate 24 mmol/L (21-32); Bilirubin Total 0.5 mg/dL (0.2-1.0); Glucose Level 107 mg/dL (74-106); Potassium 3.8 mmol/L (3.5-5.1); Protein, Total 7.7 g/dL (6.4-8.2); Sodium Level 139 mmol/L (136-145)
[2021-03-30] MEDS: Levofloxacin500mg IV 500 MG/100 ML BAG IV SCH (16:57)
[2021-03-30] MEDS ORDERED: VANCOMYCIN 1.25 GM in NA CHLORIDE 0.9% 250 ML IVPB ONE (17:00)
[2021-03-30 18:14] LABS: Urine Appearance CLEAR (Clear); Urine Bilirubin NEGATIVE (Negative); Urine Blood TRACE (Negative); Urine Color YELLOW (Yellow); Urine Glucose NEGATIVE (Negative); Urine Protein NEGATIVE (Negative); Urine pH 5.5 (5.0-7.0)
[2021-03-30 19:19] LABS: Urine Bacteria NONE SEEN /HPF (NONE SEEN)
[2021-03-30 20:23] LABS: Blood Morphology Comment NOT SEEN (NOT SEEN); Platelet Estimate ADEQ; White Blood Cell Scan OK (OK)
[2021-03-30] MEDS ORDERED: lisinopriL 10 MG TAB PO ONE (21:09)
[2021-03-30] MEDS ORDERED: POTASSIUM CL SA 10 MEQ TAB PO ONE (22:53)
[2021-03-31] MEDS: NA CHLORIDE 0.9% 1,000 ML IV SCH ×2 (05:56→09:01)
[2021-03-31] MEDS: lisinopriL 10 MG TAB PO SCH ×2 (08:26→21:00)
--- NOTE | 2021-03-31 13:07 | HP ---
Date of Admission: 03/30/2021 Chief Complaint: Redness of right leg skin and chills. History Of Present Illness: Mr. Manriquez is a pleasant 66-year-old male patient, who has a history of ly mphedema of leg with history of recurrent cellulitis of right lower extremity, came into office today after he called office and informed office staff about his redness of the right leg problem. He was asked to come see me and after he arrived to office, he started to have chills. He denies any injur y to this leg. No open wound. Review of Systems: Constitutional: As mentioned above. Dermatology: As mentioned above. All other systems reviewed and negative. Allergies: TO PENICILLIN, DETAILS UNKNOWN; DOXYCYCLINE CAUSING CHEST PAIN; AND BENADRYL CAUSING RASH AND HIVES. Medications: According to office record, he is on albuterol inhaler 2 puffs 4 times a day as needed for shortness of breath, amitriptyline 25 mg at bedtime, amlodipine 5 mg daily, atorvastatin 10 mg da john, Symbicort inhaler 2 puffs 2 times a day and it is 160 mcg dose, lansoprazole 30 mg daily, lisino pril 20 mg daily, sumatriptan 50 mg every 2 hours as needed for migraine headache, vitamin B12 1000 m cg p.o. daily. Past Medical History: Significant for allergic rhinitis, migraine, asthma which is mild and persiste nt, hypertension, hyperlipidemia, gastroesophageal reflux disease, diverticulosis, anxiety, right leg lymphedema with history of recurrent cellulitis of right leg. Past Surgical History: Cervical spine surgery, knee surgery, multiple leg surgeries during childhood due to polio. Social History: Negative for smoking and alcohol use. Family History: Father had coronary artery disease. Mother has hypertension and hyperlipidemia. Physical Examination: Vital Signs: When he came to office; blood pressure was 152/87, pulse 99, temperature 98, respirator y rate 16, weight 146 pounds, height 61.5 inches. General: The patient awake, alert, oriented, not in distress, was having chills and covered up with his jackets. HEENT: Head atraumatic, normocephalic. Conjunctivae nonerythematous. Sclerae white. Mouth, no thr ush or edema noted. Ears/Nose, no mass, lesion, discharge noted. Neck: Supple. No JVD, lymph nodes, bruit, thyromegaly noted. Lungs: Bilateral good equal air entry. Clear to auscultation. No rhonchi. No rales. Heart: Normal heart sounds, no murmur or gallop. Abdomen: Soft, bowel sounds normal. No guarding, rigidity, tenderness, mass, hepatosplenomegaly, dis tention, or bruit noted. Extremities: Right leg, distal thigh and most of the area between the right knee and right foot, ski n is pink, warm to touch with mild leg swelling. There is no open wound. Skin: No rash, ulcer, cellulitis. Lymphatics: No lymph node enlargement in neck, supraclavicular, infraclavicular region. Neuro: The patient has weakness of both legs, which is chronic due to his polio. Chest: Unremarkable. External Genitalia: Deferred. Rectal: Deferred. Laboratory Data: White count 16.8, hemoglobin 13.6, platelets 314. Sodium 139, potassium 3.8, chlor helen 105, bicarb 24, BUN 16, creatinine 0.61, glucose 107. Procalcitonin less than 0.05. Lactic acid 1.1. Liver function tests unremarkable. Urinalysis unremarkable. COVID-19 test negative. Impression: 1.Cellulitis, right leg. 2.Lymphedema, right leg. 3.Rule out sepsis. 4.Hypertension. 5.Hyperlipidemia. 6.Gastroesophageal reflux disease. 7.Diverticulosis. 8.Mild persistent asthma. 9.Anxiety. Plan: We will go ahead and admit the patient to hospital for further evaluation and management of th is problem. The patient is appropriate for inpatient and [facility] We will continue his home medications per order, start the patient on empiric IV antibiotic which is vancomycin and Levaquin. We will follow up on culture results and I will see him tomorrow for fo llowup. We will give Tylenol on a p.r.n. basis for fever and DVT prophylaxis will be given per order . I will see him tomorrow for followup. Details and plan of treatment discussed with the patient. JG/KRISTY Voice ID: [id number]
[2021-03-31 14:49] VITALS: BMI 27.0
[2021-03-31] MEDS: ENOXAPARIN 40 MG/0.4 ML SQ SCH (17:35)
[2021-03-31] MEDS: Levofloxacin500mg IV 500 MG/100 ML BAG IV SCH (17:35)
[2021-03-31] MEDS ORDERED: AMITRIPTYLINE 25 MG TAB PO SCH (21:00)
[2021-03-31] MEDS ORDERED: ATORVASTATIN 10 MG TAB PO SCH (21:00)
[2021-04-01] MEDS: NA CHLORIDE 0.9% 1,000 ML IV SCH (03:46)
[2021-04-01 04:18] VITALS: BP 122/67; TEMP 98.3
[2021-04-01 04:27] LABS: Absolute Lymphocytes (CBC) 1.3 K/uL (0.7-4.9); Basophils % 0.5 % (0-1.3); Hematocrit 35.3 % (39.6-49.0); Lymphocytes % 16.7 % (15.3-44.8); MPV 7.9 fL (7.6-11.3)
[2021-04-01 04:39] LABS: BUN Blood Urea Nitrogen 12 mg/dL (7-18); Bicarbonate 24 mmol/L (21-32); Glucose Level 102 mg/dL (74-106); Potassium 3.8 mmol/L (3.5-5.1); Sodium Level 142 mmol/L (136-145)
--- NOTE | 2021-04-01 05:58 | PN ---
Date of Progress Note: 03/31/2021 Subjective: The patient was seen for followup this morning. No new complaints or problems reported by the patient. Lying in bed, not in distress. Objective: Vital Signs: Reviewed. HEENT: Unremarkable. Lungs: Clear to auscultation. Heart: Sounds normal. Abdomen: Soft. Bowel sounds normal. No guarding, rigidity, tenderness, or distention. Extremities: No leg edema on the left leg. Right leg, trace edema present and skin over the right l ower thigh and right lower leg between knee and foot area of redness, distribution is unchanged, but intensity of redness of skin is slightly better today than yesterday. There is no open wound. No bl isters. Laboratory Data: Blood culture remains negative so far. Impression: 1.Cellulitis, right lower extremity. 2.Hypertension. 3.Hyperlipidemia. 4.Lymphedema, right leg. Plan: We will go ahead and continue current medications, continue current antibiotic which is vancom ycin and Levaquin. Follow up on cultures. We will repeat blood work tomorrow. I will see him tomor row for followup. Possible discharge to go home in next 1 or 2 days depending on his condition. Details were discussed with the patient. Continue current DVT prop hylaxis. JG/MODL Voice ID: [id number] Report ID: [id number]
--- NOTE | 2021-04-01 21:28 | DS ---
Date of Discharge: 04/01/2021 Disposition: Discharged to go home. Physical Examination: HEENT: Unremarkable. Lungs: Clear to auscultation. Heart: Sounds normal. Abdomen: Soft. Bowel sounds normal. No guarding, rigidity, tenderness, distention. Extremities: Right leg has trace edema. Skin: Right lower extremity shows faint pink discoloration of skin involving lower thigh and area be tween right knee and foot. Overall, this is significantly better than what it was at the time of adm ission. No open wound. Laboratory Data: Upon admission; white count 16.8, hemoglobin 13.6, platelets 314. Today; white cou nt is 8, hemoglobin 11.5, and platelet count 250. Last chemistry today; sodium 142, potassium 3.8, c hloride 110, bicarb 24, BUN 12, creatinine 0.52, glucose 102. Upon admission, procalcitonin was less than 0.05. Lactic acid level was 1.1. Liver function test unremarkable. Discharge Medications And Instructions: 1.Continue prior home medications. 2.Take Levaquin 500 mg p.o. daily for 10 days. 3.Follow up at my office next week on Monday. Hospital Course: This is a 66-year-old pleasant male patient, admitted to the hospital with fever, c hills and cellulitis of right leg. Please see dictated H and P for more information. After the allie ent was evaluated at the office, he was admitted to the hospital and he was started on IV vancomycin and IV Levaquin. Overall, his condition improved and today he is feeling much better and was dischar ged to go home in stable condition. So far, blood culture has remained negative. The patient has ly mphedema of the right leg and he is using his Farrow wrap to his leg on a regular basis. Final Diagnoses: 1.Cellulitis, right leg. 2.Lymphedema, right leg. 3.Hypertension. 4.Hyperlipidemia. 5.Gastroesophageal reflux disease. 6.Diverticulosis. 7.Mild persistent asthma. 8.Anxiety. JG/MODL Voice ID: [id number] Report ID: [id number]
== END 2021-04-01 07:24 | disposition home or self-care (01) | DRG 603 ==
LOC: 4TH 12:39
PROVIDERS: ADMIT Internal Medicine; ATTEND Internal Medicine
DX: L03.115 Cellulitis of right lower limb (principal); I89.0 Lymphedema, not elsewhere classified; I10 Essential (primary) hypertension; E78.5 Hyperlipidemia, unspecified; K21.9 Gastro-esophageal reflux disease without esophagitis; K57.90 Diverticulosis of intestine, part unspecified, without perforation or abscess without bleeding; J45.30 Mild persistent asthma, uncomplicated; F41.9 Anxiety disorder, unspecified; Z20.822 Contact with and (suspected) exposure to COVID-19; Z88.0 Allergy status to penicillin
CPT/HCPCS: 36415; 80048; 80053; 81001; 83605; 83735; 84145; 85025; 87040; 87086; 87088; J1650; J3370; J7030; J7050; U0003

== ENCOUNTER 2021-09-15 21:52 | Emergency (ER) | payer OTHER ==
--- OUTSIDE RECORDS SUMMARY | 2021-09-15 21:55 | XMS REPORT | Continuity of Care Document ---
:1955 Author Organization [facility] t Address [address] [place] [address] Care Team Providers Name Role Phone Paz Ml Primary Care Physician NOAH MAYA Attending Clinician Unavailable Nurse, Pob Immunization Attending Clinician Unavailable Noah Maya DO Attending Clinician Lab, Fam Pob I Attending Clinician Unavailable ANENE Attending Clinician Unavailable Doctor Unassigned, Name Attending Clinician Unavailable TIMOTHY Attending Clinician Unavailable LIVELY Attending Clinician Unavailable Payers Payer Name Policy Type Policy Number Effective Date Expiration Date Carol brown MEDICARE PART A [id number] 1979 \T\ B 00:00:00 Problems Condition Condition Condition Status Onset Resolution Last Treating Co mments Source Name Details Category Date Date Treatment Clinician Date Closed Closed Problem Active Univers fracture fracture [id number] [place] No known No known Disease Unive rs active active ity of problems problems [facility] Allergies, Adverse Reactions, Alerts Allergy Allergy Status Severity Reaction(s) Onset Inactive Treating Comm ents Source Name Type Date Date Clinician Penicill Propensi Active Unknown - Uni vers ins ty to See comments 6-18 ity of adverse 00:00: [place] reaction 00 [facility] DIPHENHY DRUG Active Unknown-Cmnt Un karin DRAMINE INGREDI 6-18 ity of HCL 00:00: [place] 00 [facility] CODEINE DRUG Active Unknown-Cmnt Uni vers INGREDI 6-18 ity of 00:00: [facility] PENICILL Drug Active Unknown-Cmnt Un karin INS Class 6-18 ity of 00:00: [facility] Diphenhy Propensi Active Unknown - Uni vers dramine ty to See comments 6-18 ity of Hcl adverse 00:00: [place] reaction [facility] Codeine Propensi Active Unknown - Univ ers ty to See comments 6-18 ity of adverse 00:00: [place] reaction [facility] Social History Social Habit Start Date Stop Date Quantity Comments Source Alcohol intake 2018-12-27 2018-12-27 Ex-drinker [facility] 00:00:00 00:00:00 (finding) [facility] Tobacco use and 2018-12-25 2018-12-25 Never used Universit y of exposure 00:00:00 00:00:00 [facility] Sex Ass[birth year] Universit y of 00:00:00 00:00:00 [facility] Smoking Status Start Date Stop Date Source Never smoker [facility] Medications Ordered Filled Start Stop Current Ordering Indication Dosage Frequency Signature Comments Components Source Medication Medication Date Date Medication? Clinician (SIG) Name Name amLODIPine Yes 5mg Take 5 mg Un karin 5 mg tablet 6-19 by mouth ity of 11:02: daily. [place] [address] Indication Medical s: at Branch bedtime lisinopril Yes 20mg Take 20 mg U nivers 20 mg 6-19 by mouth ity of tablet 11:02: daily. [place] [address] Indication Medical s: q am Branch atorvastati Yes 10mg Take 10 mg Univers n 10 mg 6-19 by mouth ity of tablet 11:02: at [place] [address] bedtime. [facility] LANSOPRAZOL Yes Take by Un karin E ORAL 6-19 mouth. ity of 11:02: [address] lansoprazol Yes 30mg Take 30 mg Univers e 30 mg 6-19 by mouth ity of capsule 11:02: daily. [address] aspirin/hans Yes 1{packa Take 1 U nivers icylamide/c 6-19 ge} Package by it y of affeine (BC 11:02: mouth 2 Kirk as HEADACHE 28 (two) Medical POWDER times Branch ORAL) daily. Indication s: for headache Gabapentin Gabapentin 2017- Yes JAMAAL Q0.5D TAKE 1 Univers 300 MG Oral 300 MG Oral 04-05 LIVELY CAPSULE ity of Capsule Capsule 00:00: P.A. TWICE [place] 00 DAILY. Physici ans Immunizations Ordered Filled Immunization Date Status Comments Sour e Immunization Name Name SARS-COV-2 COVID-19 2021-05-21 Completed Unive rsity of MODERNA BOOSTER 00:00:00 [place] Med ical VACCINE Branch Procedures Procedure Date / Time Performed Performing Clinician [facility] e SARS-COV-2 COVID-19 2021-05-21 20:04:00 Doctor Unassigned, No Un iversity of [place] VACCINE Name Medical Branch BOOSTER,0.25ML,IM (MODERNA) [U] XRAY KNEE 1 OR 2 2018-05-09 00:00:00 Univers ity [facility] LEFT [id number] Physicians [U] XRAY FOOT MIN 3 2018-04-05 00:00:00 Universi ty [place] [facility] LEFT [id number] Physicians [U] XRAY KNEE 1 OR 2 2018-03-30 [id number] Encounters Start End Encounter Admission Attending Care Care Encounter Source Date/Time Date/Time Type Type Clinicians Facility Department ID 2021-05-21 2021-05-21 Outpatient R KYLE [facility] [id number] Univers 13:10:00 13:10:00 CALI bernabe [facility] 2021-05-21 2021-05-21 Imm/Inj Nurse, [facility] Pob Immunization [facility] [id number] Univers 12:48:22 12:48:36 Visit Cali Maya [id number] .10 ity of [place] [id number] [place] [id number] Me dical NAL [address] Branch BUILDING 2020-08-14 2020-08-14 Laboratory Lab, [facility] [id number] 13:24:17 13:44:17 Only Fam Pob I Health [id number] [place] [id number] Professio [id number] [address]al [address] 2020-08-14 2020-08-14 Outpatient R YELENA, [facility] [id number] Univers 13:40:00 13:40:00 LASHONDA bernabe [facility] 2020-08-14 2020-08-14 Letter Doctor JAGDEEP [id number] 00:00:00 00:00:00 (Out) Unassigned, [place] [id number] [place] [facility] [id number] 2018-05-17 2018-05-17 Appointmen KEVIN AGUIRRE [facility] [id number] Univers 11:15:00 11:15:00 t; JUANA AGUIRRE ity o f JOSHUA, M.D. [place] M.D. Physici ans 2018-04-05 2018-04-05 Appointmen KEVIN WU [facility] [id number] Univers 11:30:00 11:30:00 t; JAMAAL WU ity [facility] [place] [facility] ans 2018-03-08 2018-03-08 Appointmen KEVIN AGUIRRE [facility] [id number] Univers 11:30:00 11:30:00 t; JUANA AGUIRRE ity o f [place], M.D. [place] M.D. Physici ans Results Test Description Test Time Test Comments Results Result Comments Source SARS-COV2/RT-PCR ([facility]) 2019-11-05 15:45:00 Test Item Value Reference Range Interpretation Comme nts SARS-COV2/RT-PCR (test code = 2133731) Not Detected Not Detected, N egative SARS-COV-2 PERFORMING LAB (test code = [facility] [id number]) Negative results do not preclude SARS-CoV-2 infection and should not be used as the sole basis for patient management decisions. Negative results must be combined with clinical observations, patient history, and epidemiological information. A false negative result may occur if a specimen is improperly collected, transported or handled.The limit of detection for this assay is 250 copies/mL.This SARS CoV-2 test is a rapid, real-time RT-PCR test intended for the qualitative detection of nucleic acid from SARS-CoV-2 in a nasopharyngeal swab specimen collected from individuals suspected of COVID-19 by their healthcare provider.This test has not been Food and Drug Administration (FDA) cleared or approved and has been authorized by FDA under an Emergency Use Authorization (EUA). This EUA will be effective until the declaration that circumstances exist justifying the authorization of the emergency use of in vitro diagnostic tests for detection and/or diagnosis of COVID-19 is terminated under Section 564(b)(2) of the Act or the EUA is revoked under Section 564(g) of the Act.Fact Sheet for Healthcare Pro viders:https://www.iLost.20/20 [employer]Documents/Xpert%20Xpress%20SARS%20CoV-2/Fact%20Sh eets/3023802%60SCDB-QDJ-8%20HEALTHCARE%20PROVIDERS%20FACT%20SHEET.pdfFact Sheet for Healthcare Patients:https://www.[employer]/Documents/Xpert%20Xpress%20SARS%20CoV-2/Fact%20Sheets/3023801%20SARS-COV -2%20PATIENT%20FACT%20SHEET.pdfPerforming Laboratory:[facility] [place] [address][U] XRAY KNEE 1 OR 2 VWS LEFT [id number] 2018-03-08 11:42:00Images acquired, not reported on this accession number. [facility]
[2021-09-15 22:30] LABS: Absolute Lymphocytes (CBC) 2.2 K/uL (0.7-4.9); Hematocrit 41.2 % (39.6-49.0); Lymphocytes % 31.1 % (15.3-44.8); MPV 8.1 fL (7.6-11.3); RBC Red Blood Cell Count 5.08 M/uL (4.33-5.43)
[2021-09-15 22:40] LABS: Urine Blood 1+ (Negative); Urine Glucose Negative (Negative); Urine Protein Negative (Negative); Urine Specific Gravity >=1.030 (1.005-1.030); Urine pH 5.5 (5.0-7.0)
[2021-09-15 22:43] LABS: Protime INR 0.98
[2021-09-15 22:48] LABS: ALT/SGPT 25 U/L (12-78); AST/SGOT 14 U/L (15-37); Albumin 3.6 g/dL (3.4-5.0); Alkaline Phosphatase 89 U/L (45-117); BUN Blood Urea Nitrogen 14 mg/dL (7-18); Bicarbonate 25 mmol/L (21-32); Bilirubin Direct 0.1 mg/dL (0-0.2); Bilirubin Total 0.6 mg/dL (0.2-1.0); Glucose Level 98 mg/dL (74-106); Lipase 184 U/L (73-393); NT PRO-BNP 60 pg/mL (<125); Potassium 3.5 mmol/L (3.5-5.1); Protein, Total 7.3 g/dL (6.4-8.2); Sodium Level 141 mmol/L (136-145)
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
[2021-09-16 02:19] VITALS: TEMP 98
[2021-09-16 02:24] VITALS: BP 136/82; O2SAT 98
--- NOTE | 2021-09-16 10:41 | RAD REPORT ---
EXAM DESCRIPTION: Chest Single View [facility]Lex: XR CHEST 1 VIEW CLINICAL HISTORY: CHEST PAIN. COMPARISON: Chest radiograph from February 20, 2020. TECHNIQUE: Single view AP chest radiograph(s). FINDINGS: Similar appearance of opacification along the medial right mid to lower lung, along the ca rdiac margin. Similar appearance of mild perihilar interstitial thickening. No pleural effusion. No p neumothorax. Moderate cardiomegaly. No significant osseous abnormality. Suspected hiatal hernia. IMPRESSION: 1. Similar appearance of opacification along the medial right mid to lower lung, possi bj chronic atelectasis. If not already performed, recommend comparison with chest CT. 2. Suspected hiatal hernia. Electronically signed by: Anika Ireland MD 09/16/2021 12:06 AM NURSE PRACTICAL Due to temporary technical issues with the PACS/Fluency reporting system, reports are being signed by the in house radiologist without review as a courtesy to ensure prompt reporting. The interpreting r adiologist is fully responsible for the content of the report.
--- NOTE | 2021-09-16 10:43 | RAD REPORT ---
EXAM DESCRIPTION: CT Angiography Chest With Intravenous Contrast CLINICAL HISTORY: Chest pain;SOB TECHNIQUE: Axial computed tomographic angiography images of the chest with intravenous contrast. S agittal and coronal reformatted images were created and reviewed. This CT exam was performed using one or more of the following dose reduction techniques: automated exposure control, adjustment of t he mA and/or kV according to patient size, and/or use of iterative reconstruction technique. MIP reconstructed images were created and reviewed. COMPARISON: No relevant prior studies available. FINDINGS: Artifacts: Motion artifact degrades image quality and limits evaluation of segmental and subsegmental vessels particularly at the lung bases. Pulmonary arteries: No central or proximal segmental pulmonary arterial filling defects. Aorta: No acute findings. No thoracic aortic aneurysm. Lungs: Minimal bibasilar subsegmental atelectasis/pleural parenchymal scar. No mass. Pleural space: Unremarkable. No significant effusion. No pneumothorax. Heart: The heart is mildly enlarged. Coronary artery calcification. No significant pericardial ef fusion. No evidence of RV dysfunction. Mediastinum: Moderate hiatal hernia. Bones/joints: Thoracic S-shaped scoliosis and multilevel spondylosis. No acute fracture. No dis location. Soft tissues: Unremarkable. Lymph nodes: Unremarkable. No enlarged lymph nodes. IMPRESSION: Motion artifact degrades image quality and limits evaluation of segmental and subsegment al vessels particularly at the lung bases. No central or proximal segmental pulmonary embolic disease. Electronically signed by: Snow Mcginnis MD 09/16/2021 1:25 AM ONION TIER Due to temporary technical issues with the PACS/Fluency reporting system, reports are being signed by the in house radiologist without review as a courtesy to ensure prompt reporting. The interpreting r adiologist is fully responsible for the content of the report.
== END 2021-09-16 02:13 | disposition home or self-care (01) ==
LOC: ER 21:52
DX: R07.9 Chest pain, unspecified (principal); I10 Essential (primary) hypertension; E78.00 Pure hypercholesterolemia, unspecified; Z88.0 Allergy status to penicillin; Z88.5 Allergy status to narcotic agent; Z88.8 Allergy status to other drugs, medicaments and biological substances
CPT/HCPCS: 93005; 87040 ×2; 85025; 80048; 36415; 83735; 87205 ×3; 85610; 80076; 81003; 84484; 83690; 83880; 71275; 71045; 99285; Q9967; 87077; 87186

== ENCOUNTER 2021-09-28 05:37 | Observation (INO) | payer OTHER ==
--- OUTSIDE RECORDS SUMMARY | 2021-09-28 05:41 | XMS REPORT | Continuity of Care Document ---
:1955 Author Organization [facility] t Address [address] [place] [address] Care Team Providers Name Role Phone Paz [...] Expiration Date Carol brown MEDICARE PART A [id number] 1979 \T\ B 00:00:00 Problems Condition Condition Condition Status Onset Resolution Last Treating Co mments Source Name Details Category Date Date Treatment Clinician Date Closed Closed Problem Active Univers fracture fracture [id number] it [place] No known No known Disease Unive rs active active ity of problems problems [facility] Allergies, Adverse Reactions, Alerts Allergy Allergy Status Severity Reaction(s) Onset Inactive Treating Comm ents Source Name Type Date Date Clinician Penicill Propensi Active Unknown - Uni vers ins ty to See comments 6-18 ity of adverse 00:00: [place] reaction 00 [facility] DIPHENHY DRUG Active Unknown-Cmnt Un karin DRAMINE INGREDI 6-18 ity of HCL 00:00: [place] 00 [facility] CODEINE DRUG Active Unknown-Cmnt Uni vers INGREDI 6-18 ity of 00:00: [facility] PENICILL Drug Active Unknown-Cmnt Un karin INS Class 6-18 ity of 00:00: [facility] Diphenhy Propensi Active Unknown - Uni vers dramine ty to See comments 6-18 ity of Hcl adverse 00:00: [place] reaction [facility] Codeine Propensi Active Unknown - Univ ers ty to See comments 6-18 ity of adverse 00:00: [place] reaction [facility] Social History Social Habit Start Date Stop Date Quantity Comments Source Alcohol intake 2018-12-27 2018-12-27 Ex-drinker [facility] 00:00:00 00:00:00 (finding) [facility] Tobacco use and 2018-12-25 2018-12-25 Never used Universit y of exposure 00:00:00 00:00:00 [facility] Sex Ass[birth year] Universit y of 00:00:00 00:00:00 [facility] Smoking Status Start Date Stop Date Source Never smoker [facility] Medications Ordered Filled Start Stop Current Ordering Indication Dosage Frequency Signature Comments Components Source Medication Medication Date Date Medication? Clinician (SIG) Name Name amLODIPine Yes 5mg Take 5 mg Un karin 5 mg tablet 6-19 by mouth ity of 11:02: daily. [place] [address] Indication Medical s: at Branch bedtime lisinopril Yes 20mg Take 20 mg U nivers 20 mg 6-19 by mouth ity of tablet 11:02: daily. [place] [address] Indication Medical s: q am Branch atorvastati Yes 10mg Take 10 mg Univers n 10 mg 6-19 by mouth ity of tablet 11:02: at [place] [address] bedtime. [facility] LANSOPRAZOL Yes Take by Un karin E ORAL 6-19 mouth. ity of 11:02: [address] lansoprazol Yes 30mg Take 30 mg Univers e 30 mg 6-19 by mouth ity of capsule 11:02: daily. [address] aspirin/hans Yes 1{packa Take 1 U nivers icylamide/c 6-19 ge} Package by it y of affeine (BC 11:02: mouth 2 Kirk as HEADACHE 28 (two) Medical POWDER times Branch ORAL) daily. Indication s: for headache Gabapentin Gabapentin 2017- Yes JAMAAL Q0.5D TAKE 1 Univers 300 MG Oral 300 MG Oral 04-05 LIVELY CAPSULE ity of Capsule Capsule 00:00: P.A. TWICE [place] 00 DAILY. Physici ans Immunizations Ordered Filled Immunization Date Status Comments Sour e Immunization Name Name SARS-COV-2 COVID-19 2021-05-21 Completed Unive rsity of MODERNA BOOSTER 00:00:00 [place] Med ical VACCINE Branch Procedures Procedure Date / Time Performed Performing Clinician [facility] e SARS-COV-2 COVID-19 2021-05-21 20:04:00 Doctor Unassigned, No Un iversity of [place] VACCINE Name Medical Branch BOOSTER,0.25ML,IM (MODERNA) [U] XRAY KNEE 1 OR 2 2018-05-09 00:00:00 Univers ity [facility] LEFT [id number] Physicians [U] XRAY FOOT MIN 3 2018-04-05 00:00:00 Universi ty [facility] LEFT [id number] Physicians [U] XRAY KNEE 1 OR 2 2018-03-30 [id number] Encounters Start End Encounter Admission Attending Care Care Encounter Source Date/Time Date/Time Type Type Clinicians Facility Department ID 2021-05-21 2021-05-21 Outpatient R KYLE [facility] [id number] Univers 13:10:00 13:10:00 CALI bernabe [facility] 2021-05-21 2021-05-21 Imm/Inj Nurse, [facility] Pob Immunization [facility] [id number] Univers 12:48:22 12:48:36 Visit Cali Maya [id number] ity of [place] [id number] [place] PROFESS[place] [id number] Me dical NAL [address] BUILDING 2020-08-14 2020-08-14 Laboratory Lab, [facility] [id number] 13:24:17 13:44:17 Only Fam Pob I Health [id number] [place] [id number] Professio [id number] nal [address] 2020-08-14 2020-08-14 Outpatient R YELENA, [facility] [id number] Univers 13:40:00 13:40:00 LASHONDA bernabe [facility] 2020-08-14 2020-08-14 Letter Doctor JAGDEEP [id number] 00:00:00 00:00:00 (Out) Unassigned, [place] [id number] [place] [facility] [id number] 2018-05-17 2018-05-17 Appointmen [facility]EVIN [facility] [id number] Univers 11:15:00 11:15:00 t; JUANA AGUIRRE ity o f JOSHUA, M.D. [place] M.D. Physici ans 2018-04-05 2018-04-05 Appointmen KEVIN WU [facility] [id number] Univers 11:30:00 11:30:00 t; JAMAAL WU ity Prema H[facility] Pre[facility] Physici ans 2018-03-08 2018-03-08 Appointmen KEVIN AGUIRRE [facility] [id number] Univers 11:30:00 11:30:00 t; JUANA AGUIRRE ity o f JOSHUA, M.D. [place] M.D. Physici ans Results Test Description Test Time Test Comments Results Result Comments Source SARS-COV2/RT-PCR ([facility]) 2019-11-05 15:45:00 Test Item Value Reference Range Interpretation Comme nts SARS-COV2/RT-PCR (test code = 1086769) Not Detected Not Detected, N egative SARS-COV-2 PERFORMING LAB (test code = [facility] [id number]) Negative results do not preclude SARS-CoV-2 infection [...] of the Act.Fact Sheet for Healthcare Pro viders:https://www.Entitle.ClicData/Documents/Xpert%20Xpress%20SARS%20CoV-2/Fact%20Sh eets/3023802%60FUOJ-STR-1%20HEALTHCARE%20PROVIDERS%20FACT%20SHEET.pdfFact Sheet for Healthcare Patients:https://www.Beddit/Documents/Xpert%20Xpress%20SARS%20CoV-2/Fact%20Sheets/3023801%20SARS-COV -2%20PATIENT%20FACT%20SHEET.pdfPerforming Laboratory:[facility] [place] [address][U] XRAY KNEE 1 OR 2 VWS LEFT [id number] 2018-03-08 11:42:00Images acquired, not reported on this accession number. [facility]
[2021-09-28] MEDS ORDERED: ENOXAPARIN 60 MG/0.6 ML SQ SCH (06:00)
[2021-09-28] MEDS ORDERED: NA CHLORIDE 0.9% 1,000 ML ONE (06:01)
[2021-09-28] MEDS ORDERED: ASPIRIN 81 MG CHEWABLE TABLET ONE (06:01)
[2021-09-28 06:25] LABS: Absolute Lymphocytes (CBC) 1.2 K/uL (0.7-4.9); Lymphocytes % 20.5 % (15.3-44.8); MPV 8.4 fL (7.6-11.3); RBC Red Blood Cell Count 4.93 M/uL (4.33-5.43)
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
[2021-09-28] MEDS ORDERED: FAMOTIDINE 20 MG/2 ML VIAL IV ONE ×2 (06:56→07:36)
[2021-09-28] MEDS ORDERED: ENOXAPARIN 60 MG/0.6 ML SQ ONE (06:57)
[2021-09-28 07:05] LABS: Protime INR 1.02
[2021-09-28 07:17] VITALS: BMI 28.5
[2021-09-28] MEDS ORDERED: ONDANSETRON 4 MG/2 ML VIAL IV PRN (07:19)
[2021-09-28] MEDS ORDERED: MORPHINE 4 MG/ML SYR IV PRN (07:19)
[2021-09-28] MEDS ORDERED: ACETAMINOPHEN 325 MG TABLET PO PRN (07:22)
--- NOTE | 2021-09-28 07:33 | RAD REPORT ---
EXAM DESCRIPTION: RAD - Chest Single View - 09/28/2021 6:08 am CLINICAL HISTORY: CHEST PAIN COMPARISON: CT chest September 16, portable chest September 15 TECHNIQUE: AP portable chest image was obtained 09/28/2021 6:08 am . FINDINGS: No new mass or consolidation of the lung parenchyma. Increased opacification in the medial right base is still present obscuring the right heart border. This suggests right middle lobe atelec tasis; however, this finding was present on the September 16 CT study with no atelectasis present on that study. Trachea is midline. Heart and vasculature are normal. No measurable pleural effusion and no pneumotho rax. No acute bony abnormality seen. No acute aortic findings suspected. IMPRESSION: No acute cardiopulmonary process. Above detailed findings are similar to the September 15 imaging.
[2021-09-28] MEDS ORDERED: lisinopriL 20 MG TAB ONE (07:35)
[2021-09-28] MEDS ORDERED: AMLODIPINE 5 MG TAB ONE (07:36)
[2021-09-28] MEDS ORDERED: METOPROLOL TAR 25 MG TAB ONE (07:36)
[2021-09-28 08:31] LABS: ALT/SGPT 25 U/L (12-78); AST/SGOT 21 U/L (15-37); Albumin 3.6 g/dL (3.4-5.0); Alkaline Phosphatase 105 U/L (45-117); BUN Blood Urea Nitrogen 16 mg/dL (7-18); Bicarbonate 27 mmol/L (21-32); Bilirubin Total 0.4 mg/dL (0.2-1.0); Glucose Level 111 mg/dL (74-106); NT PRO-BNP 36 pg/mL (<125); Potassium 3.4 mmol/L (3.5-5.1); Protein, Total 7.6 g/dL (6.4-8.2); Sodium Level 140 mmol/L (136-145)
--- NOTE | 2021-09-28 08:43 | EKG ---
Test Date: 2021-09-28 Test Time: 05:50:06 Procurement Assistant: KAMRYN MEASUREMENT RESULTS: Intervals: Rate: 58 DC: 158 QRSD: 98 QT: 406 QTc: 398 Traphill: P: 47 DC: 158 QRS: 15 T: 16 INTERPRETIVE STATEMENTS: Sinus bradycardia Otherwise normal ECG Compared to ECG 09/15/2021 21:59:13 Sinus rhythm no longer present ST (T wave) deviation no longer present Electronically Signed On 09-28-21 08:42:03 CDT by Albert Burton
[2021-09-28 08:47] LABS: SARS-COV-2 RT PCR NEGATIVE (NEGATIVE)
[2021-09-28] MEDS ORDERED: FENTANYL CITR 100 MCG/2 ML ONE (08:58)
[2021-09-28] MEDS ORDERED: MIDAZOLAM HCL 2 MG/2 ML INJ ONE ×2 (08:58→09:45)
[2021-09-28] MEDS ORDERED: HEPA 1000U/500MLS 1,000 UNIT/500 ML BAG IV ONE ×2 (08:58→10:08)
[2021-09-28] MEDS ORDERED: ATROPINE SULF 1 MG/10 ML SYR IV ONE (08:59)
[2021-09-28] MEDS ORDERED: NA CHLORIDE 0.9% 50 ML ONE (08:59)
[2021-09-28] MEDS ORDERED: AMLODIPINE 5 MG TAB PO SCH (09:00)
[2021-09-28] MEDS ORDERED: ASPIRIN EC 81 MG TAB PO SCH (09:00)
[2021-09-28] MEDS ORDERED: FAMOTIDINE 20 MG/2 ML VIAL IV SCH (09:00)
[2021-09-28] MEDS ORDERED: lisinopriL 20 MG TAB PO SCH (09:00)
[2021-09-28 09:39] LABS: Bilirubin Direct 0.1 mg/dL (0-0.2)
[2021-09-28] MEDS ORDERED: PRASUGREL (EFFIENT) 10 MG TAB ONE (10:29)
[2021-09-28] MEDS ORDERED: LIDOCAINE 1% 20 ML MDV ONE (11:44)
[2021-09-28] MEDS ORDERED: PNEUMOCOCCAL VACCINE 0.5 ML IMVAC ONE (12:00)
[2021-09-28] MEDS ORDERED: INFLUENZA VACCINE (for 6+ mo) 0.5 ML DOSE IMVAC ONE (12:00)
[2021-09-28 12:18] VITALS: O2SAT 97
[2021-09-28] MEDS ORDERED: ACETAMINOPHEN 325 MG TABLET ONE (15:59)
[2021-09-28] MEDS ORDERED: METOPROLOL TAR 25 MG TAB PO SCH (18:00)
[2021-09-28 18:41] VITALS: BP 129/89
[2021-09-28 20:54] VITALS: TEMP 98.3
--- NOTE | 2021-09-29 00:19 | SS ---
Date of Discharge: 09/28/2021 Chief Complaint: Chest pain. History Of Present Illness: This is a 66-year-old pleasant male patient who came into the emergency room with complaints of chest pain. The patient started to have this pain in the center of his chest radiating to left arm, left shoulder region, and this started during nighttime. He had some associa sofiya shortness of breath type of feeling and sweating. He came to ER and after he was evaluated in ER, he was admitted to the hospital. When I saw him in the emergency room this morning, he was asy mptomatic. The patient reports that about a month ago he had similar episode of chest pain. Denies any acid reflux, heartburn, indigestion problem. Review of Systems: Cardiovascular as mentioned above. All other systems reviewed are negative. Allergies: TO PENICILLIN. DETAILS UNKNOWN. DOXYCYCLINE CAUSING CHEST PAIN. BENADRYL CAUSING RASH AND HIVES. Medications: List reviewed. Past Medical History: Significant for hypertension, allergic rhinitis, migraine, asthma, mild persis tent hyperlipidemia, gastroesophageal reflux disease, diverticulosis, anxiety, right leg lymphedema, history of recurrent cellulitis of right leg. Past Surgical History: Cervical spine surgery, knee surgery, multiple leg surgeries during childhood due to polio. Social History: Negative for smoking and alcohol use. Family History: Father had coronary artery disease. Mother, hypertension and hyperlipidemia. Physical Examination: Vital Signs: Pulse 51, respiratory rate 18, blood pressure 133/81, oxygen saturation 100%, height 5 feet 1 inch, weight 151 pounds. General: Awake, alert, oriented, not in distress. HEENT: Head atraumatic, normocephalic. Conjunctivae nonerythematous. Sclerae white. Mouth, no thr ush or edema noted. Ears/Nose, no mass, lesion, discharge noted. Neck: Supple. No JVD, lymph nodes, bruit, thyromegaly noted. Lungs: Bilateral good equal air entry. Clear to auscultation. No rhonchi. No rales. Heart: Normal heart sounds, no murmur or gallop. Abdomen: Soft, bowel sounds normal. No guarding, rigidity, tenderness, mass, hepatosplenomegaly, dis tention, or bruit noted. Extremities: No leg edema. No calf tenderness. Skin: No rash, ulcer, cellulitis. Lymphatics: No lymph node enlargement in neck, supraclavicular, infraclavicular region. Neuro: No focal neurological deficit. Chest: Unremarkable. External Genitalia: Deferred. Rectal: Deferred. Imaging Studies: EKG normal sinus rhythm. No acute ST-T changes. White count 5.7, hemoglobin 13.1, platelets 232. Sodium , potassium , chloride , bicarb , glu cose , BUN , creatinine , troponin . Chest x-ray, no acute c ardiopulmonary changes. Patient's influenza A test was positive. Influenza B and COVID-19 test nega tive. Hospital Course: After patient was evaluated in the ER, he was admitted to the hospital. Cardiology consultation was requested from Dr. Burton and Dr. Burton took him to cardiac medical laboratory technical officer today and f ound that the patient had about 80% stenosis of LAD and he successfully placed a stent in this region . After the procedure he contacted me, informed me that the patient will be able to go home later to day around dinner times, so after the patient had his dinner, he was discharged to go home in stable condition. The patient was prescribed Tamiflu yesterday and he will start that as prescribed for 4-5 days. Final Diagnoses: 1.Coronary artery disease with angina, status post angioplasty with stent placement. 2.Hypertension. 3.Hyperlipidemia. 4.Mild persistent asthma. 5.Lymphedema, right leg. 6.Gastroesophageal reflux disease. 7.Diverticulosis. 8.Anxiety. 9.Influenza A with respiratory manifestation. Discharge Medications And Instructions: 1.Continue all prior home medications except stop atorvastatin 10 mg dose and start atorvastatin 40 mg daily. 2.Clopidogrel 75 mg daily. 3.Follow up at my office next week on Monday, which is 10/04/2021 at 10 a.m. JG/MODL Voice ID: [id number] Report ID: [id number]
--- NOTE | 2021-09-30 08:50 | ECHO ---
HEIGHT: 5 ft 1 in WEIGHT: 151 lb 0 oz DATE OF STUDY: 09/28/[address]: Kang Ayala MD 2-DIMENSIONAL: YES M.MODE: YES DOPPLER: YES COLOR FLOW: YES TDS: NO PORTABLE: NO DEFINITY: NO BUBBLE STUDY: NO DIAGNOSIS: CHEST PAIN CARDIAC HISTORY: CATHERIZATION: YES SURGERY: NO PROSTHETIC VALVE: NO PACEMAKER: NO MEASUREMENTS (cm) DIASTOLIC (NORMALS) SYSTOLIC (NORMALS) IVSd 0.9 (0.6-1.2) LA Diam 3.3 (1.9-4.0) LVEF 63% LVIDd 4.3 (3.5-5.7) LVIDs 2.8 (2.0-3.5) %FS 34% LVPWd 1.0 (0.6-1.2) Ao Diam 2.9 (2.0-3.7) 2 DIMENSIONAL ASSESSMENT: RIGHT ATRIUM: NORMAL LEFT ATRIUM: NORMAL RIGHT VENTRICLE: NORMAL LEFT VENTRICLE: NORMAL TRICUSPID VALVE: NORMAL MITRAL VALVE: NORMAL PULMONIC VALVE: NORMAL AORTIC VALVE: NORMAL PERICARDIAL EFFUSION: NONE AORTIC ROOT: NORMAL LEFT VENTRICULAR WALL MOTION: NORMAL. DOPPLER/COLOR FLOW: NORMAL. COMMENTS: NORMAL 2D ECHO WITH DOPPLER. NO WALL MOTION ABNORMALITY. NO EFFUSION. TECHNOLOGIST: KENAN JARVIS
--- NOTE | 2021-09-30 13:29 | CON ---
Date of Consultation: 09/28/[address] Paz's service on 09/28/2021. I saw the patient on 09/28/2021. Reason For Consultation: Unstable angina. History Of Present Illness: Mr. Manriquez is a 66-year-old male, has had a history of polio, scoliosis, a nxiety, dyslipidemia, and hypertension, came in with substernal chest pressure across the anterior ch est, radiating to the arms and the neck with some diaphoresis and shortness of breath, but no nausea or vomiting. Denied PND, orthopnea, pedal edema, palpitations, or syncope. Has had a negative heart catheterization approximately 20 years ago. EKG was unremarkable. Troponin was negative. Chest x- ray was negative. The patient persists to have some chest pain with exertion. Past Medical History: As stated above. Allergies: BENADRYL, PENICILLIN, TRAMADOL, AND CODEINE. Review of Systems: Negative. Social History: Negative. Family History: Negative. Medications: At home include lisinopril, Imitrex, Bactrim, Elavil, Norvasc, Lipitor, Inderal. Physical Examination: Vital Signs: Stable. He is afebrile. HEENT: Negative. Neck: Supple with no bruit. Chest: Clear to auscultation and percussion. Cardiac: Revealed a regular rhythm and rate. No murmurs, gallops, or rubs. Abdomen: Benign. Extremities: Revealed no clubbing, cyanosis, or edema. Diagnostic Data: As stated earlier. Echocardiogram which was done was normal. Assessment/plan: 1.Unstable angina. 2.Hypertension. 3.Dyslipidemia. 4.Polio. 5.Anxiety. I think Mr. Manriquez's symptoms are too classic to do stress test. I will perform a heart catheterizatio n on him today to rule out coronary artery disease. The case was discussed with him and with Dr. Penny henry. AURELIA/KRISTY Voice ID: [id number] Report ID: [id number]
--- NOTE | 2021-09-30 19:53 | OP ---
Date of Procedure: 09/28/2021 Surgeon: Albert Burton MD Load Checker: Ms. Becky Hardy. Angiography of the groin was normal. Angio-Seal was used to close the case. Procedures: Left heart catheterization, selective coronary arteriogram, primary stent of the mid LAD . Indication: Unstable angina. History Of Present Illness: Mr. Manriquez is 66, history of hypertension, dyslipidemia, unstable angina, brought to the mechanical shop laborer today as an inpatient, prepped and draped in the routine sterile fashion. A 6-Icelandic sheath introduced in the right common femoral artery successfully using 10 cc of Xylocaine i n the Seldinger technique. Elvis catheters were used to cannulate the left main and right main res pectively. He had a normal RCA, normal circumflex. The LAD had about a 90% mid LAD stenosis just af ter the second diagonal. We decided to intervene. I initially attempted an XB LAD 3.5 and 4.0 tamia ters, but I could not cannulate the left main secondary to severe tortuosity in the aorta from scolio sis and history of polio. Eventually a JL4 catheter with side hole, guide was used to cannulate the left main. I was able to cross the lesion successfully. A 2.5 x 16 Synergy stent was placed in the mid LAD with 0% residual. That was placed at 14 atmosphere for 30 seconds. There were no complicati ons. The patient tolerated the procedure well. Estimated Blood Loss: 5 mL. The patient received aspirin, Effient, and Angiomax during the procedure. Anesthesia: Total conscious sedation was 60 minutes. The patient will remain in the hospital for about 6 hours prior to discharge. He will be going home on his home medication plus Plavix and statin. The case was discussed with Dr. Paz. Final Diagnoses: Unstable angina, coronary artery disease, status post successful primary stent of t he mid LAD. NB/MODL Voice ID: [id number] Report ID: [id number]
== END 2021-09-28 18:42 | disposition home or self-care (01) ==
LOC: ER 05:37 → ERHOLD 06:54
PROVIDERS: ADMIT Internal Medicine; ATTEND Internal Medicine
PROC: 027034Z Dilation of Coronary Artery, One Artery with Drug-eluting Intraluminal Device, Percutaneous Approach (ICD-10-PCS; principal; 2021-09-28)
DX: I25.110 Atherosclerotic heart disease of native coronary artery with unstable angina pectoris (principal); J10.1 Influenza due to other identified influenza virus with other respiratory manifestations; I10 Essential (primary) hypertension; E78.5 Hyperlipidemia, unspecified; J45.30 Mild persistent asthma, uncomplicated; I89.0 Lymphedema, not elsewhere classified; K21.9 Gastro-esophageal reflux disease without esophagitis; K57.90 Diverticulosis of intestine, part unspecified, without perforation or abscess without bleeding; F41.9 Anxiety disorder, unspecified; Z20.822 Contact with and (suspected) exposure to COVID-19; Z86.12 Personal history of poliomyelitis
CPT/HCPCS: 93005; 93306; 85025; 80048; 36415; 83735; 85610; 80076; 85347 ×5; 85730; 84484; 83880; 0240U; 71045; 92928; 93454; 96372; 96374; 99284; C1893; C1725; C1877 ×2; J2250 ×2; J3010; J1650 ×2; J0583; J7030; J1644 ×2; G0378 ×2

== ENCOUNTER 2021-10-08 09:03 | Emergency (ER) | payer OTHER ==
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
--- NOTE | 2021-10-08 11:03 | RAD REPORT ---
EXAM DESCRIPTION: US - Lower Extremity Artery Uni Ltd - 10/08/2021 10:34 am CLINICAL HISTORY: Leg pain COMPARISON: None FINDINGS: The right common femoral, superficial femoral and popliteal arteries demonstrate biphasic waveforms. The posterior tibial and dorsalis pedis arteries demonstrate biphasic waveforms. No high-grade stenosis seen. No occlusion No pseudo aneurysm/hematoma noted Grayscale, color and spectral analysis performed on all vessels IMPRESSION: Mild right lower extremity arterial disease
--- NOTE | 2021-10-08 11:10 | RAD REPORT ---
EXAM DESCRIPTION: USExtremity Venous Uni Ltd10/08/2021 10:34 am CLINICAL HISTORY: Right leg pain and swelling. COMPARISON: None. FINDINGS: Right common femoral, superficial femoral, popliteal and right posterior tibial veins are compressible and demonstrate augmentation. Doppler demonstrates good flow. Grayscale, color and spectral analysis performed on all vessels IMPRESSION: No evidence of deep venous thrombosis involving the right lower extremity.
[2021-10-08 11:27] VITALS: BP 126/82; TEMP 97.8; O2SAT 100
== END 2021-10-08 11:18 | disposition home or self-care (01) ==
LOC: ER 09:03
DX: L76.32 Postprocedural hematoma of skin and subcutaneous tissue following other procedure (principal); I10 Essential (primary) hypertension; Z88.0 Allergy status to penicillin; Z88.5 Allergy status to narcotic agent; Z88.8 Allergy status to other drugs, medicaments and biological substances
CPT/HCPCS: 93926; 93971; 99283

== ENCOUNTER 2022-02-06 11:52 | Inpatient (IN) | payer OTHER ==
[2022-02-06] MEDS ORDERED: NA CHLORIDE 0.9% 100 ML ONE (12:34)
[2022-02-06] MEDS ORDERED: NA CHLORIDE 0.9% 1,000 ML ONE (12:34)
[2022-02-06] MEDS ORDERED: NA CHLORIDE 0.9% 250 ML ONE (12:34)
[2022-02-06] MEDS ORDERED: VANCOMYCIN 1 GM/VIAL ONE (12:34)
[2022-02-06] MEDS ORDERED: CEFEPIME 1 GM/VIAL ONE (12:35)
--- NOTE | 2022-02-06 12:59 | RAD REPORT ---
EXAM DESCRIPTION: RAD - Chest Single View - 02/06/2022 12:51 pm CLINICAL HISTORY: MALAISE COMPARISON: Chest Single View dated 09/28/2021; Chest Single View dated 09/15/2021; Chest Single View d ated 02/20/2020; Chest Single View dated 02/18/2020; Chest For Pe Angio dated 09/16/2021 FINDINGS: Lines: None. Lungs: No evidence of edema or pneumonia. Scoliosis and chest wall deformity accentuate the pulmonary markings in the medial right lung base. Pleural: No significant pleural effusions or pneumothorax. Cardiac: Similar size and configuration. Bones: No acute fractures. ACDF in the cervical spine. Other: IMPRESSION: No acute cardiopulmonary disease.
[2022-02-06 13:05] LABS: Absolute Lymphocytes (CBC) 0.5 K/uL (0.7-4.9); Hematocrit 41.4 % (39.6-49.0); Lymphocytes % 3.7 % (15.3-44.8); MCV 80.7 fL (80-100); MPV 7.8 fL (7.6-11.3); RBC Red Blood Cell Count 5.14 M/uL (4.33-5.43)
[2022-02-06 13:18] LABS: Albumin 3.4 g/dL (3.4-5.0); Bilirubin Total 1.1 mg/dL (0.2-1.0); Potassium 3.5 mmol/L (3.5-5.1); Protime INR 1.19
--- NOTE | 2022-02-06 13:26 | RAD REPORT ---
EXAM DESCRIPTION: US - Extremity Venous Uni Ltd - 02/06/2022 1:14 pm CLINICAL HISTORY: Swelling COMPARISON: None. TECHNIQUE: Real-time sonographic evaluation of the right lower extremity deep venous system was perf ormed. FINDINGS: Normal compressibility, flow augmentation, phasic flow and spontaneous flow is identified in the right lower extremity deep venous system. No intraluminal filling defects seen. IMPRESSION: No DVT in the right lower extremity.
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
[2022-02-06 14:46] LABS: Blood Morphology Comment NOT SEEN (NOT SEEN); Platelet Estimate ADEQ; White Blood Cell Scan OK (OK)
[2022-02-06 14:51] LABS: SARS-CoV-2 Antigen Rapid Res Negative (Negative)
[2022-02-06] MEDS ORDERED: MORPHINE 2 MG/ML SYR IV PRN (16:03)
[2022-02-06] MEDS ORDERED: ONDANSETRON 4 MG/2 ML VIAL IV PRN (16:03)
[2022-02-06] MEDS ORDERED: ACETAMINOPHEN 500 MG TAB PO PRN (16:03)
[2022-02-06 16:38] VITALS: BMI 27.3
[2022-02-06] MEDS: NA CHLORIDE 0.9% 1,000 ML IV SCH (16:44)
[2022-02-06] MEDS ORDERED: VANCOMYCIN 500 MG in NA CHLORIDE 0.9% 100 ML IVPB ONE (16:45)
[2022-02-06] MEDS: PROPRANOLOL HCL 10 MG TAB PO SCH (20:58)
[2022-02-06] MEDS: ENOXAPARIN 40 MG/0.4 ML SQ SCH (20:59)
[2022-02-06] MEDS: CEFEPIME 1 GM in NA CHLORIDE 0.9% 100 ML IV SCH (20:59)
[2022-02-06] MEDS: AMITRIPTYLINE 25 MG TAB PO SCH (20:59)
[2022-02-06] MEDS: ATORVASTATIN 10 MG TAB PO SCH (20:59)
[2022-02-06] MEDS ORDERED: VANCOMYCIN 1 GM in NA CHLORIDE 0.9% 250 ML IVPB SCH (23:00)
[2022-02-07 04:08] LABS: Hematocrit 33.1 % (39.6-49.0); Lymphocytes % 10.9 % (15.3-44.8); MPV 7.7 fL (7.6-11.3); RBC Red Blood Cell Count 4.19 M/uL (4.33-5.43)
[2022-02-07 04:33] LABS: Potassium 3.3 mmol/L (3.5-5.1)
[2022-02-07] MEDS ORDERED: MAGNESIUM SULFATE 1 gm IVPB 1 GM/100 ML BAG IV ONE (07:39)
[2022-02-07] MEDS ORDERED: POTASSIUM 25 MEQ EFFERV TAB PO ONE (09:00)
[2022-02-07] MEDS: CYANOCOBALAMIN 1,000 MCG TAB PO SCH (09:16)
[2022-02-07] MEDS: lisinopriL 20 MG TAB PO SCH (09:17)
[2022-02-07] MEDS: AMLODIPINE 5 MG TAB PO SCH (09:17)
[2022-02-07] MEDS: PANTOPRAZOLE 40MG TABLET PO SCH (09:17)
[2022-02-07] MEDS: CEFEPIME 1 GM in NA CHLORIDE 0.9% 100 ML IV SCH ×2 (09:20→21:12)
[2022-02-07] MEDS: NA CHLORIDE 0.9% 1,000 ML IV SCH ×2 (09:20→19:40)
[2022-02-07] MEDS: PROPRANOLOL HCL 10 MG TAB PO SCH ×2 (09:52→21:00)
[2022-02-07] MEDS: VANCOMYCIN 1.25 GM in NA CHLORIDE 0.9% 250 ML IVPB SCH ×2 (10:21→19:40)
[2022-02-07] MEDS ORDERED: VANCOMYCIN 1.25 GM in NA CHLORIDE 0.9% 250 ML IVPB SCH (12:00)
--- NOTE | 2022-02-07 12:22 | EKG ---
Test Date: 2022-02-06 Test Time: 12:33:13 Profile Trimmer: MB MEASUREMENT RESULTS: Intervals: Rate: 61 NH: 176 QRSD: 102 QT: 396 QTc: 398 [place]: P: 67 NH: 176 QRS: 46 T: 34 INTERPRETIVE STATEMENTS: Normal sinus rhythm Normal ECG Compared to ECG 09/28/2021 05:50:06 Sinus bradycardia no longer present Electronically Signed On 02-07-22 12:20:25 CDT by Khris López
[2022-02-07] MEDS ORDERED: BC POWDER PO PRN (12:35)
[2022-02-07] MEDS ORDERED: ACETAMIN/CAFFEINE/BUTALB TAB PO PRN (18:26)
[2022-02-07] MEDS: AMITRIPTYLINE 25 MG TAB PO SCH ×2 (21:00→21:13)
[2022-02-07] MEDS: ENOXAPARIN 40 MG/0.4 ML SQ SCH (21:11)
[2022-02-07] MEDS: ATORVASTATIN 10 MG TAB PO SCH (21:13)
[2022-02-07 22:04] VITALS: O2SAT 97
[2022-02-08 07:56] LABS: Magnesium 1.9 mg/dL (1.8-2.4); Potassium 3.7 mmol/L (3.5-5.1)
[2022-02-08] MEDS: CEFEPIME 1 GM/VIAL ONE ×2 (08:06→08:21)
[2022-02-08] MEDS ORDERED: NA CHLORIDE 0.9% 100 ML ONE (08:18)
[2022-02-08] MEDS: lisinopriL 20 MG TAB PO SCH ×2 (08:20→08:23)
[2022-02-08] MEDS: PROPRANOLOL HCL 10 MG TAB PO SCH (08:24)
[2022-02-08] MEDS: CYANOCOBALAMIN 1,000 MCG TAB PO SCH (08:24)
[2022-02-08] MEDS: CEFEPIME 1 GM in NA CHLORIDE 0.9% 100 ML IV SCH (08:26)
[2022-02-08] MEDS: PANTOPRAZOLE 40MG TABLET PO SCH (08:30)
[2022-02-08] MEDS: AMLODIPINE 5 MG TAB PO SCH (08:32)
[2022-02-08] MEDS: VANCOMYCIN 1.25 GM in NA CHLORIDE 0.9% 250 ML IVPB SCH (09:05)
[2022-02-08 12:44] VITALS: BP 136/76; TEMP 97.8
--- NOTE | 2022-02-09 06:22 | HP ---
Date of Admission: 02/06/2022 Chief Complaint: Fever, chills, and redness and swelling of right leg. History Of Present Illness: This is a -wdah-aok pleasant male patient, who came into emerg ency room with 2 days' history of redness and swelling of the right leg and associated with fever and chills. After he came to emergency room, he was evaluated, diagnosed as having cellulitis of the ri ght leg, and was admitted to the hospital. Denies any nausea, vomiting, chest pain, or shortness of breath. Allergies: TO PENICILLIN, DETAILS UNKNOWN; DOXYCYCLINE CAUSING CHEST PAIN; BENADRYL CAUSING RASH AND HIVES. Medications: List reviewed. Review of Systems: Constitutional: As mentioned above. Dermatology: As mentioned above. All other systems reviewed and negative. Past Medical History: Significant for allergic rhinitis, obstructive sleep apnea, hypertension, hype rlipidemia, coronary artery disease, gastroesophageal reflux disease, diverticulosis, benign prostati c hypertrophy, anxiety, lymphedema of right leg, and recurrent cellulitis of right leg. Past Surgical History: Cervical spine surgery, knee surgery, multiple leg surgeries during childhood due to polio and in September of this year, the patient had coronary artery angioplasty with stent place ment. Family History: Father, coronary artery disease. Mother; hypertension, hyperlipidemia, and osteoart hritis. Social History: Negative for smoking and alcohol use. Physical Examination: Vital Signs: When he first came into emergency room; temperature 101.2, pulse 73, respiratory rate 1 8, blood pressure 143/82. Height 5 feet 1 inch, weight 145 pounds. General: Awake, alert, oriented, not in distress. HEENT: Head atraumatic, normocephalic. Conjunctivae nonerythematous. Sclerae white. Mouth, no thr ush or edema noted. Ears/Nose, no mass, lesion, discharge noted. Neck: Supple. No JVD, lymph nodes, bruit, thyromegaly noted. Lungs: Bilateral good equal air entry. Clear to auscultation. No rhonchi. No rales. Heart: Normal heart sounds, no murmur or gallop. Abdomen: Soft, bowel sounds normal. No guarding, rigidity, tenderness, mass, hepatosplenomegaly, dis tention, or bruit noted. Extremities: No leg edema. No calf tenderness. Skin: Right lower extremity involving the lower half of thigh and almost entire leg between knee and foot skin is pink, warm to touch. No open wound. Neuro: No focal neurological deficit. Chest: Unremarkable. External Genitalia: Deferred. Rectal: Deferred. 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 Laboratory Data: Yesterday; white count 13.7, hemoglobin 13.3, platelets 272. Sodium 138, potassium 3.5, chloride 107, bicarb 26, BUN 21, creatinine 0.72, glucose 118. Lactic acid 1.4. Liver functio n tests unremarkable except total bilirubin 1.1. COVID-19 test negative. Chest x-ray, no acute card iopulmonary changes. Venous Doppler of right leg was negative for DVT. Today; white count 8.8, hemo globin 11.1, platelets 198. Sodium 136, potassium 3.3, chloride 107, bicarb 23, BUN 11, creatinine 0 .54, glucose 96. Impression: 1.Cellulitis, right leg. 2.Lymphedema, right leg. 3.Coronary artery disease. 4.Hypertension. 5.Hyperlipidemia. 6.Allergic rhinitis. 7.Gastroesophageal reflux disease. 8.Anemia, unspecified. Plan: We will go ahead and admit the patient to hospital for further evaluation and management of th is problem. The patient is appropriate for inpatient and is expected to spend 2 midnights in the [facility]. Empiric antibiotic, cefepime and vancomycin were started. We will go ahead and continue thes e 2 antibiotics, pharmacy consult to manage vancomycin dosing. Home medications will be continued pe r order. I will see him tomorrow for followup. DVT prophylaxis will be given using Lovenox. Contin ue antihypertensive and statin therapy along with his aspirin and Plavix the way he continues at home . Follow up on culture results. Depending on his condition tomorrow, we will decide if he can be di scharged to go home with oral antibiotics or not. JG/MODL Voice ID: [id number]
--- NOTE | 2022-02-09 19:54 | DS ---
Date of Discharge: 02/08/2022 Disposition: Discharged to go home. Physical Examination: HEENT: Unremarkable. Lungs: Clear to auscultation. Heart: Sounds normal. Abdomen: Soft. Bowel sounds normal. No guarding, rigidity, tenderness, distention. Extremities: Right leg trace edema. Redness on the right leg is about 50% better compared to the ti me of admission. Discharge Medications And Instructions: 1.Continue all prior home medications. 2.Take cefuroxime 250 mg p.o. 2 times a day for 10 days and levofloxacin 500 mg daily for 10 days. 3.Follow up at my office next week on Monday, which is 02/14/2022. Final Diagnoses: 1.Cellulitis, right leg. 2.Coronary artery disease. 3.Hypertension. 4.Hyperlipidemia. Hospital Course: This is a -yfpd-ptz pleasant male patient, admitted to the hospital with complaints of redness, swelling, fever, chills. Redness and swelling were involving right lower extr emity. There was no history of trauma. The patient has history of lymphedema of right leg with hist ory of recurrent cellulitis involving right leg. After he came into emergency room, he was evaluated and admitted to the hospital with right leg cellulitis. His venous Doppler of the right leg was neg ative. He was started on cefepime and vancomycin. Initial white count was 13,000 and repeat white c ount day after admission was normal. Blood culture has remained negative so far. His condition has improved and today he was discharged to go back home in stable condition with above -mentioned medications and instructions. JG/MODL Voice ID: [id number] Report ID: [id number]
== END 2022-02-08 13:34 | disposition home or self-care (01) | DRG 603 ==
LOC: ER 11:52 → ERHOLD 14:35 → 2ND 15:44
PROVIDERS: ADMIT Internal Medicine; ATTEND Internal Medicine
DX: L03.115 Cellulitis of right lower limb (principal); I89.0 Lymphedema, not elsewhere classified; I25.10 Atherosclerotic heart disease of native coronary artery without angina pectoris; I10 Essential (primary) hypertension; E78.5 Hyperlipidemia, unspecified; D64.9 Anemia, unspecified; J30.9 Allergic rhinitis, unspecified; K21.9 Gastro-esophageal reflux disease without esophagitis; G47.33 Obstructive sleep apnea (adult) (pediatric); K57.90 Diverticulosis of intestine, part unspecified, without perforation or abscess without bleeding; N40.0 Benign prostatic hyperplasia without lower urinary tract symptoms; F41.9 Anxiety disorder, unspecified; Z20.822 Contact with and (suspected) exposure to COVID-19; Z88.0 Allergy status to penicillin; Z88.8 Allergy status to other drugs, medicaments and biological substances; Z88.3 Allergy status to other anti-infective agents; Z86.12 Personal history of poliomyelitis; Z95.5 Presence of coronary angioplasty implant and graft; Z82.49 Family history of ischemic heart disease and other diseases of the circulatory system; Z82.61 Family history of arthritis
CPT/HCPCS: 36415; 71045; 80048; 80053; 80202; 83605; 83735; 85025; 85610; 85730; 87040; 87811; 93005; 93971; 96361; 96365; 96375; 99285; J0692; J1650; J3370; J3475; J7030; J7050

== ENCOUNTER 2022-03-29 11:08 | Inpatient (IN) | payer OTHER ==
--- OUTSIDE RECORDS SUMMARY | 2022-03-29 11:10 | XMS REPORT | Continuity of Care Document ---
:1955 Author Organization [facility] t Address [address] [place] [address] [address]. [address] [place] [address] Care Team Providers Name Role Phone Quentin Paz Primary Care Physician CALI MAYA Attending Clinician Unavailable Nurse, Adc Pob Immunization Attending Clinician Unavailable Cali Maya DO Attending Clinician Lab, Adc Fam Pob I Attending Clinician Unavailable LASHONDA KIRK Attending Clinician Unavailable Doctor Unassigned, [facility] Attending Clinician Unavailable JUANA AGUIRRE M.D. Attending Clinician Unavailable JAMAAL WU P.A. 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 No known No known Disease Unive rs active active ity of problems problems [facility] Allergies, Adverse Reactions, Alerts Allergy Allergy Status Severity Reaction(s) Onset Inactive Treating Comm ents Source Name Type Date Date Clinician Penicill Propensi Active Unknown - Uni vers ins ty to See comments 6-18 ity of adverse 00:00: [place] reaction 00 Medical s Branch DIPHENHY DRUG Active Unknown-Cmnt Un karin DRAMINE INGREDI 6-18 ity of HCL 00:00: [place] [id number] Medical Branch CODEINE DRUG Active Unknown-Cmnt Uni vers INGREDI 6-18 ity of 00:00: Medical Branch PENICILL Drug Active Unknown-Cmnt Un karin INS Class -18 ity of 00:00: Medical Branch Diphenhy Propensi Active Unknown - Uni vers dramine ty to See comments 6-18 ity of Hcl adverse 00:00: [place] reaction Medical s Branch Codeine Propensi Active Unknown - Univ ers ty to See comments 6-18 ity of adverse 00:00: [place] reaction Medical s Branch Social History Social Habit Start Date Stop Date Quantity Comments Source Alcohol intake 2018-12-27 2018-12-27 Ex-drinker [facility] 00:00:00 00:00:00 (finding) [facility] Tobacco use and 2018-12-25 2018-12-25 Never used Universit y of exposure 00:00:00 00:00:00 [facility] Sex Assigned At [address] [facility] 00:00:00 [facility]:00:00 [facility] Smoking Status Start Date Stop Date Source Never smoker [facility] Medications Ordered Filled Start Stop Current Ordering Indication Dosage Frequency Signature Comments Components Source Medication Medication Date Date Medication? Clinician (SIG) Name Name amLODIPine Yes 5mg Take 5 mg Un karin 5 mg tablet 6-19 by mouth ity of 11:02: daily. [place] [address] Indication Medical s: at Branch bedtime lisinopril Yes 20mg Take 20 mg U nivers 20 mg 6-19 by mouth ity of tablet 11:02: daily. [place] [address] Indication Medical s: q am Branch atorvastati Yes 10mg Take 10 mg Univers n 10 mg 6-19 by mouth ity of tablet 11:02: at [place] [address] bedtime. Medical Branch LANSOPRAZOL Yes Take by Uni vers E ORAL 6-19 mouth. ity of 11:02: [address] lansoprazol Yes 30mg Take 30 mg Univers e 30 mg 6-19 by mouth ity of capsule 11:02: daily. [address] aspirin/hans Yes 1{packa Take 1 U nivers icylamide/c 6-19 ge} Package by it y of affeine (BC 11:02: mouth 2 Kirk as HEADACHE 28 (two) Medical POWDER times Branch ORAL) daily. Indication s: for headache Gabapentin Gabapentin Yes JAMAAL Q0.5D TAKE 1 UT 300 MG Oral 300 MG Oral 04-05 [facility] Physici Capsule Capsule 00:00: P.A. TWICE ans 00 DAILY. Immunizations Ordered Filled Immunization Date Status Comments Sour e Immunization Name Name SARS-COV-2 COVID-19 2021-05-21 Completed Unive rsity of MODERNA BOOSTER 00:00:00 [place] Med ical VACCINE Branch Procedures Procedure Date / Time Performed Performing Clinician [facility] e SARS-COV-2 COVID-19 2021-05-21 20:04:00 Doctor Unassigned, No Un [facility] [place] VACCINE Name Medical Branch BOOSTER,0.25ML,IM (MODERNA) [U] XRAY KNEE 1 OR 2 2018-05-09 00:00:00 [facility] VWS LEFT [id number] [U] XRAY FOOT MIN 3 2018-04-05 00:00:00 [facility] VWS [place] [id number] [U] XRAY KNEE 1 OR 2 2018-03-30 00:00:00 [facility] V[place] [id number] Encounters Start End Encounter Admission Attending Care Care Encounter Source Date/Time Date/Time Type Type Clinicians Facility Department ID 2021-05-21 2021-05-21 Outpatient R KYLE [facility] [id number] Univers 13:10:00 13:10:[address] [facility] 2021-05-21 2021-05-21 Imm/Inj Nurse, [facility] Pob Immunization [facility] ..[id number] Univers 12:48:22 12:48:36 Visit Cali Maya [id number] .10 ity [id number] PROF[place] [id number] [place] dical [address] 2020-08-14 2020-08-14 Laboratory Lab, [facility] [id number] 13:24:17 13:44:17 Only Fam Pob I Health [id number] [place] [id number] Rayna [id number] nal [address] 2020-08-14 2020-08-14 Outpatient R YELENA, [facility] [id number] [facility] 13:40:00 13:40:[address] [facility] 2020-08-14 2020-08-14 Letter Doctor JAGDEEP [id number] 00:00:00 00:00:00 (Out) Unassigned, [place] [id number] [facility] [id number] 2018-05-17 2018-05-17 Appointmen [facility] [id number] [place] 11:15:00 11:15:00 t; JUANA AGUIRRE Physi ci JOSHUA, M.D. ans M.D. 2018-04-05 2018-04-05 Appointmen [facility] [id number] [place] 11:30:00 11:30:00 t; JAMAAL WU Phy sici AUDREY PMaykel thao P.Kalie 2018-03-08 2018-03-08 Appointmen [facility] [id number] [place] 11:30:00 11:30:00 t; JUANA AGUIRRE Physi ci JOSHUA, M.D. ans M.D. Results Test Description Test Time Test Comments Results Result Comments Source SARS-COV2/RT-PCR ([facility]) 2019-11-05 15:45:00 Test Item Value Reference Range Interpretation Comme nts SARS-COV2/RT-PCR (test code = 1304650) Not Detected Not Detected, N egative SARS-COV-2 PERFORMING LAB (test code = [facility] [id number]) Negative results do not preclude SARS-CoV-2 infection [...] of the Act.Fact Sheet for Healthcare Pro viders:https://www.BlogRadio/Documents/Xpert%20Xpress%20SARS%20CoV-2/Fact%20Sh eets/3023802%54VDOA-BFT-3%20HEALTHCARE%20PROVIDERS%20FACT%20SHEET.pdfFact Sheet for Healthcare Patients:https://www.SocialGuide/Documents/Xpert%20Xpress%20SARS%20CoV-2/Fact%20Sheets/3023801%20SARS-COV -2%20PATIENT%20FACT%20SHEET.pdfPerforming Laboratory:[facility] [place] [address][U] XRAY KNEE 1 OR 2 VWS LEFT [id number] 2018-03-08 11:42:00Images acquired, not reported on this accession number.[facility]
--- NOTE | 2022-03-29 13:48 | RAD REPORT ---
EXAM DESCRIPTION: USExtrem Venous W Compress Bil03/29/2022 1:08 pm CLINICAL HISTORY: Leg swelling COMPARISON: January 2022 FINDINGS: The common femoral, superficial femoral, popliteal and posterior tibial veins bilaterally are compressible and demonstrate augmentation. Doppler demonstrates good flow. Grayscale, color and spectral analysis performed on all vessels IMPRESSION: No evidence of deep venous thrombosis involving either lower extremity.
[2022-03-29 14:01] LABS: Absolute Lymphocytes (CBC) 0.7 K/uL (0.7-4.9); Hematocrit 39.3 % (39.6-49.0); Lymphocytes % 4.6 % (15.3-44.8); MCV 79.3 fL (80-100); MPV 7.7 fL (7.6-11.3); RBC Red Blood Cell Count 4.96 M/uL (4.33-5.43)
[2022-03-29 14:22] LABS: Albumin 3.4 g/dL (3.4-5.0); Bilirubin Total 1.1 mg/dL (0.2-1.0); Potassium 3.2 mmol/L (3.5-5.1); Protein, Total 7.6 g/dL (6.4-8.2)
[2022-03-29] MEDS ORDERED: NA CHLORIDE 0.9% 250 ML ONE (14:28)
[2022-03-29] MEDS ORDERED: VANCOMYCIN 500 MG/VIAL ONE (14:28)
[2022-03-29] MEDS ORDERED: VANCOMYCIN 1 GM/VIAL ONE (14:28)
[2022-03-29 14:41] LABS: Blood Morphology Comment NOT SEEN (NOT SEEN); Platelet Estimate ADEQ; Platelets, Giant PRESENT
[2022-03-29 14:47] LABS: Protime INR 1.26
[2022-03-29 14:50] LABS: SARS-CoV-2 Antigen Rapid Res Negative (Negative)
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
[2022-03-29] MEDS ORDERED: CLINDAMYCIN 600MG/D5W 600 MG/50 ML BAG IV ONE (15:38)
[2022-03-29] MEDS ORDERED: ZOLPIDEM TARTRATE 5 MG TABLET PO PRN (19:23)
[2022-03-29] MEDS ORDERED: VANCOMYCIN 1 GM in NA CHLORIDE 0.9% 250 ML IVPB SCH (19:23)
[2022-03-29] MEDS ORDERED: ACETAMINOPHEN 500 MG TAB PO PRN (19:23)
[2022-03-29] MEDS ORDERED: Levofloxacin500mg IV 500 MG/100 ML BAG IV SCH (19:23)
[2022-03-29] MEDS: NA CHLORIDE 0.9% 1,000 ML IV SCH (20:52)
[2022-03-29] MEDS: INSULIN -REGULAR HUMAN 50 UNIT/0.5 ML ML SQ SCH (21:00)
[2022-03-29 23:22] VITALS: BMI 28.3
[2022-03-30 03:57] LABS: Albumin 2.6 g/dL (3.4-5.0); Bilirubin Total 0.8 mg/dL (0.2-1.0); Magnesium 1.7 mg/dL (1.8-2.4); Phosphorus 2.1 mg/dL (2.5-4.9)
[2022-03-30 04:00] LABS: Absolute Lymphocytes (CBC) 0.7 K/uL (0.7-4.9); Lymphocytes % 7.4 % (15.3-44.8); MCV 79.8 fL (80-100); MPV 8.3 fL (7.6-11.3); RBC Red Blood Cell Count 4.14 M/uL (4.33-5.43)
[2022-03-30] MEDS ORDERED: VANCOMYCIN 1 GM/VIAL ONE (05:35)
[2022-03-30] MEDS ORDERED: VANCOMYCIN 500 MG/VIAL ONE (05:35)
[2022-03-30] MEDS ORDERED: NA CHLORIDE 0.9% 250 ML ONE (05:36)
[2022-03-30] MEDS: NA CHLORIDE 0.9% 1,000 ML IV SCH (05:36)
[2022-03-30] MEDS ORDERED: VANCOMYCIN 1.25 GM in NA CHLORIDE 0.9% 250 ML IVPB SCH (06:00)
[2022-03-30] MEDS: INSULIN -REGULAR HUMAN 50 UNIT/0.5 ML ML SQ SCH ×4 (07:30→21:00)
[2022-03-30] MEDS ORDERED: HOME MED 1 EA UNK (Omeprazole [Omeprazole] 20 MG Capsule.Dr) PO SCH (09:00)
[2022-03-30] MEDS ORDERED: MAGNESIUM SULFATE 1 gm IVPB 1 GM/100 ML BAG IV ONE (09:00)
[2022-03-30] MEDS: ENOXAPARIN 40 MG/0.4 ML SQ SCH (09:49)
[2022-03-30] MEDS: lisinopriL 20 MG TAB PO SCH (09:50)
[2022-03-30] MEDS: CYANOCOBALAMIN 1,000 MCG TAB PO SCH (09:50)
[2022-03-30] MEDS: CLOPIDOGREL 75 MG TABLET PO SCH (09:50)
[2022-03-30] MEDS: AMLODIPINE 5 MG TAB PO SCH (09:50)
[2022-03-30] MEDS: POTASS/SODIUM PHOSPHATE 1 PKT POWD.PACK PO SCH ×3 (09:51→13:56)
[2022-03-30] MEDS: PANTOPRAZOLE 40MG TABLET PO SCH (09:51)
[2022-03-30] MEDS: ATORVASTATIN 40 MG TAB PO SCH (09:51)
[2022-03-30] MEDS: PROPRANOLOL HCL 10 MG TAB PO SCH (09:51)
[2022-03-30] MEDS: Levofloxacin 750mg IV 750 MG/150 ML BAG IV SCH (16:09)
[2022-03-30] MEDS: VANCOMYCIN 1.25 GM in NA CHLORIDE 0.9% 250 ML IVPB SCH (17:44)
[2022-03-31] MEDS ORDERED: VANCOMYCIN 1.25 GM in NA CHLORIDE 0.9% 250 ML IVPB SCH ×2
[2022-03-31] MEDS ORDERED: WATER FOR INJ,STERILE 20 ML ONE (06:13)
[2022-03-31] MEDS ORDERED: NA CHLORIDE 0.9% 250 ML ONE (06:14)
[2022-03-31] MEDS: VANCOMYCIN 1.25 GM in NA CHLORIDE 0.9% 250 ML IVPB SCH ×2 (06:33→18:51)
[2022-03-31] MEDS: INSULIN -REGULAR HUMAN 50 UNIT/0.5 ML ML SQ SCH ×4 (07:30→21:00)
[2022-03-31] MEDS: CYANOCOBALAMIN 1,000 MCG TAB PO SCH (08:55)
[2022-03-31] MEDS: lisinopriL 20 MG TAB PO SCH (08:55)
[2022-03-31] MEDS: PANTOPRAZOLE 40MG TABLET PO SCH (08:56)
[2022-03-31] MEDS: AMLODIPINE 5 MG TAB PO SCH (08:56)
[2022-03-31] MEDS: ATORVASTATIN 40 MG TAB PO SCH (08:56)
[2022-03-31] MEDS: CLOPIDOGREL 75 MG TABLET PO SCH (08:56)
[2022-03-31] MEDS: ENOXAPARIN 40 MG/0.4 ML SQ SCH (08:57)
[2022-03-31] MEDS: PROPRANOLOL HCL 10 MG TAB PO SCH ×3 (08:58→22:40)
--- NOTE | 2022-03-31 09:07 | HP ---
Date of Admission: 03/29/2022 Chief Complaint: Fever and chills, pain and redness of right leg. History Of Present Illness: A 67-year-old male patient who has history of lymphedema of the right le g with recurrent cellulitis of right lower extremity, came into emergency room today with 2 days' his tory of fevers, chills, redness, and swelling of the right leg. He also has some discomfort in the r ight leg. Denies any nausea or vomiting. We contacted the office yesterday with these complaints. He was advised to come to the ER. After he was evaluated, he was admitted to the hospital. Empiric antibiotic was started overnight. He actually feels better. This morning when I saw him, he denied any other complaints. Allergies: REVIEWED. Review of Systems: Dermatology: As mentioned above. Constitutional: As mentioned above. All other systems reviewed and negative. Medications: List reviewed. Past Medical History: Reviewed. Past Surgical History: Reviewed. Family History: Reviewed. Social History: Reviewed. Physical Examination: Vital Signs: This morning temperature 98, pulse 70, respiratory rate 18, blood pressure 123/61, oxyg en saturation 96% on room air. General: Awake, alert, oriented, not in distress. HEENT: Head atraumatic, normocephalic. Conjunctivae nonerythematous. Sclerae white. Mouth, no thr ush or edema noted. Ears/Nose, no mass, lesion, discharge noted. Neck: Supple. No JVD, lymph nodes, bruit, thyromegaly noted. Lungs: Bilateral good equal air entry. Clear to auscultation. No rhonchi. No rales. Heart: Normal heart sounds, no murmur or gallop. Abdomen: Soft, bowel sounds normal. No guarding, rigidity, tenderness, mass, hepatosplenomegaly, dis tention, or bruit noted. Extremities: Right leg has pedal edema and has some pink discoloration of skin involving lower half of right thigh and almost entire right leg between knee and ankle. No open wound. Skin: Warm to touch. Lymphatics: No lymph node enlargement in neck, supraclavicular, infraclavicular region. Neuro: No focal neurological deficit. Chest: Unremarkable. External Genitalia: Deferred. Rectal: Deferred. Laboratory Data: Yesterday; white count 15.4, hemoglobin 12.8, platelets 282. Today; white count 9. 5, hemoglobin 11, platelets 214. Yesterday; sodium 140, potassium 3.2, chloride 108, bicarb 26, BUN 18, creatinine 0.74, glucose 99. Lactic acid 1.6. Liver function tests unremarkable. This morning, sodium 136, potassium 4, chloride 108, bicarb 22, BUN 18, creatinine 0.56, glucose 86. Liver functi on tests unremarkable. Magnesium 1.7, phosphorus 2.1. Venous Doppler of lower extremity was negativ e for DVT. Impression: 1.Cellulitis, right leg. 2.Hypokalemia. 3.Hypomagnesemia. 4.Anemia, unspecified. 5.Coronary artery disease. 6.Hypertension. 7.Hyperlipidemia. 8.Lymphedema, right leg. Plan: Admit patient to hospital for further evaluation and management of this problem. The patient is appropriate for inpatient and is expected to spend 2 midnights in hospital. Home medications will be continued per order for hypertension, hyperlipidemia, and coronary artery disease problem, which are chronic problems and stable at this point and no need for further intervention for that. For tran lulitis, we will go ahead and give him orders. Electrolytes will be replaced as per electrolyte repl acement protocol. So far, blood culture remains negative. I will see him tomorrow for followup. Possible discharge to go home tomorrow, on oral antibiotics. JG/MODL Voice ID: [id number]
--- NOTE | 2022-03-31 13:42 | EKG ---
Test Date: 2022-03-29 Test Time: 14:04:24 Account Manager Employee Benefits: [employer] MEASUREMENT RESULTS: Intervals: Rate: 54 HI: 182 QRSD: 98 QT: 410 QTc: 388 [place]: P: 64 HI: 182 QRS: 45 T: 33 INTERPRETIVE STATEMENTS: Sinus bradycardia Cannot rule out Anterior infarct, age undetermined Abnormal ECG Compared to ECG 02/06/2022 12:33:13 Myocardial infarct finding now present Sinus rhythm no longer present Electronically Signed On 03-31-22 13:39:03 CDT by Khris López
[2022-03-31] MEDS: Levofloxacin 750mg IV 750 MG/150 ML BAG IV SCH (14:54)
[2022-03-31 21:35] VITALS: O2SAT 98
[2022-04-01] MEDS ORDERED: VANCOMYCIN 1.25 GM in NA CHLORIDE 0.9% 250 ML IVPB SCH ×2
[2022-04-01 06:06] LABS: Absolute Lymphocytes (CBC) 1.1 K/uL (0.7-4.9); Lymphocytes % 18.7 % (15.3-44.8); MPV 7.7 fL (7.6-11.3)
[2022-04-01] MEDS: VANCOMYCIN 1.25 GM in NA CHLORIDE 0.9% 250 ML IVPB SCH (06:15)
[2022-04-01 06:16] LABS: Magnesium 1.9 mg/dL (1.8-2.4); Potassium 3.7 mmol/L (3.5-5.1)
[2022-04-01] MEDS: INSULIN -REGULAR HUMAN 50 UNIT/0.5 ML ML SQ SCH (07:30)
[2022-04-01] MEDS ORDERED: POTASSIUM CL SA 10 MEQ TAB PO ONE ×2 (07:38→09:00)
[2022-04-01] MEDS: CYANOCOBALAMIN 1,000 MCG TAB PO SCH (09:00)
[2022-04-01] MEDS: ENOXAPARIN 40 MG/0.4 ML SQ SCH (09:00)
[2022-04-01] MEDS: AMLODIPINE 5 MG TAB PO SCH (09:20)
[2022-04-01] MEDS: PROPRANOLOL HCL 10 MG TAB PO SCH (09:20)
[2022-04-01] MEDS: PANTOPRAZOLE 40MG TABLET PO SCH (09:21)
[2022-04-01] MEDS: lisinopriL 20 MG TAB PO SCH (09:21)
[2022-04-01] MEDS: ATORVASTATIN 40 MG TAB PO SCH (09:21)
[2022-04-01 09:24] VITALS: BP 154/72
[2022-04-01 10:17] VITALS: TEMP 97.6
--- NOTE | 2022-04-01 12:04 | PN ---
Date of Progress Note: 03/31/2022 Subjective: Patient was seen this morning for followup. No new complaints or problems reported by jessica im. He continues to have some right leg swelling with his chronic lymphedema and recurrent celluliti s problem and it has remained unchanged from yesterday. Physical Examination: Vital Signs: Reviewed. HEENT: Unremarkable. Lungs: Clear to auscultation. Heart: Sounds normal. Abdomen: Soft. Bowel sounds normal. No guarding, rigidity, tenderness, or distention. Extremities: Right leg has a grade 1 edema. Skin: Examination of the right lower extremity shows pink discoloration of the lower anterior thigh and significant portion of the right leg between knee and ankle, but overall it is somewhat better co mpared to yesterday. Impression: 1.Cellulitis, right leg. 2.Lymphedema. 3.Hypertension. 4.Coronary artery disease. Plan: We will go ahead and continue current antibiotics. Blood cultures are negative, so far. I wi ll see him tomorrow for followup, possible discharge to go home tomorrow had been discussed with the patient with oral antibiotics. JG/MODL Voice ID: [id number] Report ID: [id number]
[2022-04-01] MEDS ORDERED: VANCOMYCIN 1 GM in NA CHLORIDE 0.9% 250 ML IVPB SCH (21:00)
--- NOTE | 2022-04-02 13:19 | DS ---
Date of Discharge: 04/01/2022 Disposition: Discharged to go home. Physical Examination: HEENT: Unremarkable. Lungs: Clear to auscultation. Heart: Sounds normal. Abdomen: Soft. Bowel sounds normal. No guarding, rigidity, tenderness, or distention. Extremity: The right leg has trace to grade 1 edema and redness and warmness on the right lower extr emity has significantly improved. I would see from the time of admission till today there is about 7 0% improvement. Laboratory Data: Upon admission; white count 15.4, hemoglobin 12.8, platelets 282. Today; white cou nt 5.7, hemoglobin 11, platelets 226. Chemistry today; sodium 138, potassium 3.7, chloride 107, bica rb 25, BUN 12, creatinine 0.54, glucose 111. Hospital Course: This is a 67-year-old male patient, admitted to the hospital with fever, chills, re dness of right leg. Please see dictated H and P for more information. After the patient was evaluat ed in ER, he was admitted to hospital. The patient was started on IV antibiotics and he was given IV ceftriaxone and Levaquin. Overall, his condition has improved. Blood cultures remain negative. Th e patient was discharged to go home in stable condition with following discharge medications and inst ructions. Final Diagnoses: 1.Cellulitis, right leg. 2.Hypokalemia. 3.Anemia. 4.Hypomagnesemia. 5.Coronary artery disease. 6.Hypertension. 7.Hyperlipidemia. 8.Lymphedema, right leg. Discharge Medications And Instructions: 1.Continue all prior home medications. 2.Take Levaquin 750 mg 1 tablet by mouth daily for 10 days. 3.Follow up at my office next week. JG/MODL Voice ID: [id number] Report ID: [id number]
== END 2022-04-01 10:00 | disposition home or self-care (01) | DRG 603 ==
LOC: ER 11:08 → ERHOLD 17:05 → 4TH 19:45
PROVIDERS: ADMIT Internal Medicine; ATTEND Internal Medicine
DX: L03.115 Cellulitis of right lower limb (principal); I10 Essential (primary) hypertension; E87.6 Hypokalemia; E83.42 Hypomagnesemia; D64.9 Anemia, unspecified; I25.10 Atherosclerotic heart disease of native coronary artery without angina pectoris; E78.5 Hyperlipidemia, unspecified; I89.0 Lymphedema, not elsewhere classified; R68.0 Hypothermia, not associated with low environmental temperature; Z88.8 Allergy status to other drugs, medicaments and biological substances; Z88.5 Allergy status to narcotic agent; Z88.0 Allergy status to penicillin; Z20.822 Contact with and (suspected) exposure to COVID-19
CPT/HCPCS: 36415; 80048; 80053; 80202; 82947; 83605; 83735; 84100; 85025; 85610; 85730; 87040; 87811; 93005; 93970; 94760; 99285; J1650; J3370; J3475; J7030; J7050

== ENCOUNTER 2022-12-05 09:23 | Inpatient (IN) | payer OTHER ==
--- OUTSIDE RECORDS SUMMARY | 2022-12-05 09:28 | XMS REPORT | Continuity of Care Document ---
:1955 Author Organization [facility] t Address [address] [place] [id number] Care Team Providers Name Role Phone Quentin Paz Primary Care Physician CALI MAYA Attending Clinician Unavailable Nurse, Adc Pob Immunization Attending Clinician Unavailable Cali Maya DO Attending Clinician Lab, Adc Fam Pob I Attending Clinician Unavailable LASHONDA KIRK Attending Clinician Unavailable Doctor Unassigned, [place] Attending Clinician Unavailable JUANA AGUIRRE M.D. Attending Clinician Unavailable JAMAAL WU P.A. Attending Clinician Unavailable Payers Payer Name Policy Type Policy Number Effective Date Expiration Date S aakashce MEDICARE PART A [id number] 1979 \T\ B 00:00:00 Problems Condition Condition Condition Status Onset Resolution Last Treating Co mments Source Name Details Category Date Date Treatment Clinician Date Closed Closed Problem Active [place] fracture fracture [id number] Ph ysici of tibial of tibial ans plateau plateau No known No known Disease Unive rs active active ity of problems problems [facility] Allergies, Adverse Reactions, Alerts Allergy Allergy Status Severity Reaction(s) Onset Inactive Treating Comm ents Source Name Type Date Date Clinician Penicill Propensi Active Unknown - Uni vers ins ty to See comments 6-18 ity of adverse 00:00: [place] reaction 00 Medical s Branch DIPHENHY DRUG Active Unknown-Cmnt Un karin DRAMINE INGREDI 6-18 ity of HCL 00:00: [place] [id number] Medical Branch CODEINE DRUG Active Unknown-Cmnt Uni [...] Comments Source Alcohol intake 2018-12-27 2018-12-27 Ex-drinker [facility] 00:00:00 00:00:00 (finding) [facility] Tobacco use and 2018-12-25 2018-12-25 Never used Universit y of exposure 00:00:00 00:00:00 [facility] Sex Assigned At [address] [facility] Smoking Status Start Date Stop Date Source Never smoker [facility] Medications Ordered Filled Start Stop Current Ordering Indication Dosage Frequency Signature Comments Components Source Medication Medication Date Date Medication? Clinician (SIG) Name Name amLODIPine Yes 5mg Take 5 mg Un karin 5 mg tablet 6-19 by mouth ity of 11:02: daily. [place] [address] Indication Medical s: at Branch bedtime lisinopril Yes 20mg Take 20 mg U nivers 20 mg 6-19 by mouth ity of tablet 11:02: daily. [place] [address] Indication Medical s: q am Branch atorvastati Yes 10mg Take 10 mg Univers n 10 mg 6-19 by mouth ity of tablet 11:02: at [place] [address] bedtime. Medical Branch LANSOPRAZOL Yes Take by Uni vers E ORAL 6-19 mouth. ity of 11:02: [address] lansoprazol Yes 30mg Take 30 mg Univers e 30 mg 6-19 by mouth ity of capsule 11:02: daily. [address] aspirin/hans Yes 1{packa Take 1 U [...] Completed Unive rsity of MODERNA BOOSTER 00:00:00 [place] Med ical VACCINE Branch Procedures Procedure Date / Time Performed Performing Clinician [facility] e SARS-COV-2 COVID-19 2021-05-21 20:04:00 Doctor Unassigned, No [facility] [place] VACCINE Name Medical Branch BOOSTER,0.25ML,IM (MODERNA) [U] XRAY KNEE 1 OR 2 2018-05-09 00:00:00 [facility] VWS LEFT [id number] [U] XRAY FOOT MIN 3 2018-04-05 00:00:00 [facility] VWS LEFT [id number] [U] XRAY KNEE 1 OR 2 2018-03-30 00:00:00 [facility] VWS LEFT [id number] Encounters Start End Encounter Admission Attending Care Care Encounter Source Date/Time Date/Time Type Type Clinicians Facility Department ID 2021-05-21 2021-05-21 Outpatient R KYLE [facility] [id number] Univers 13:10:00 13:10:00 CALI bernabe [facility] 2021-05-21 2021-05-21 Imm/Inj Nurse, [facility] Pob Immunization [facility] ..[id number] Univers 12:48:22 12:48:36 Visit Cali Maya [id number] .10 ity [id number] [address] [id number] Ct dical [address] 2020-08-14 2020-08-14 Laboratory Lab, [facility] [id number] 13:24:17 13:44:17 Only Fam Pob I Health [id number] [place] [id number] [place] [id number] nal [address] 2020-08-14 2020-08-14 Outpatient R YELENA, [facility] [id number] [facility] 13:40:00 13:40:00 LASHONDA bernabe [facility] 2020-08-14 2020-08-14 Letter Doctor JAGDEEP [id number] 00:00:00 00:00:00 (Out) Unassigned, [place] [id number] [place] [facility] [id number] 2018-05-17 2018-05-17 Appointmen KEVIN AGUIRRE [facility] [id number] [place] 11:15:00 11:15:00 t; JUANA AGUIRRE Physi ci JOSHUA, M.D. ans M.D. 2018-04-05 2018-04-05 Appointmen KEVIN WU [facility] [id number] [place] 11:30:00 11:30:00 t; JAMAAL WU Phy sici AUDREY PMaykel thao P.Kalie 2018-03-08 2018-03-08 Appointmen TIMOTHY [facility] [id number] [place] 11:30:00 11:30:00 t; JUANA AGUIRRE Physi ci JOSHUA, M.D. ans M.D. Results Test Description Test Time Test Comments Results Result Comments Source SARS-COV2/RT-PCR ([facility]) 2019-11-05 15:45:00 Test Item Value Reference Range Interpretation Comme nts SARS-COV2/RT-PCR (test code = 0775994) Not Detected Not Detected, N egative SARS-COV-2 PERFORMING LAB (test code = [facility] [id number]) Negative results do not preclude SARS-CoV-2 infection [...] of the Act.Fact Sheet for Healthcare Pro viders:https://www.Pro Player Connect/Documents/Xpert%20Xpress%20SARS%20CoV-2/Fact%20Sh eets/3023802%03TZAV-SQE-1%20HEALTHCARE%20PROVIDERS%20FACT%20SHEET.pdfFact Sheet for Healthcare Patients:https://www.eegoes/Documents/Xpert%20Xpress%20SARS%20CoV-2/Fact%20Sheets/3023801%20SARS-COV -2%20PATIENT%20FACT%20SHEET.pdfPerforming Laboratory:[facility] [place] [address][U] XRAY KNEE 1 OR 2 VWS LEFT [id number] 2018-03-08 11:42:00Images acquired, not reported on this accession number.[facility]
[2022-12-05 10:03] LABS: Absolute Lymphocytes (CBC) 0.5 K/uL (0.7-4.9); Hematocrit 35.5 % (39.6-49.0); Lymphocytes % 3.9 % (15.3-44.8); MCV 77.8 fL (80-100); MPV 7.4 fL (7.6-11.3); RBC Red Blood Cell Count 4.57 M/uL (4.33-5.43)
[2022-12-05] MEDS ORDERED: VANCOMYCIN 1 GM/VIAL ONE (10:07)
[2022-12-05] MEDS ORDERED: CEFEPIME 1 GM/VIAL ONE (10:07)
[2022-12-05] MEDS ORDERED: NA CHLORIDE 0.9% 100 ML ONE (10:07)
[2022-12-05] MEDS ORDERED: NA CHLORIDE 0.9% 250 ML ONE (10:07)
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
[2022-12-05 10:40] LABS: Potassium 3.5 mEq/L (3.5-5.1)
[2022-12-05 10:50] LABS: Blood Morphology Comment NOT SEEN (NOT SEEN); Platelet Estimate ADEQ; White Blood Cell Scan OK (OK)
[2022-12-05] MEDS ORDERED: ACETAMINOPHEN 500 MG TAB ONE (13:15)
[2022-12-05] MEDS ORDERED: ACETAMINOPHEN 500 MG TAB PO PRN (13:44)
[2022-12-05] MEDS ORDERED: MORPHINE 2 MG/ML SYR IV PRN (13:44)
[2022-12-05] MEDS ORDERED: ONDANSETRON 4 MG/2 ML VIAL IV PRN (13:44)
[2022-12-05] MEDS: VANCOMYCIN 1.25 GM in NA CHLORIDE 0.9% 250 ML IVPB ONE ×2 (14:10→14:49)
[2022-12-05] MEDS: NA CHLORIDE 0.9% 1,000 ML IV SCH ×2 (14:49→23:44)
[2022-12-05] MEDS ORDERED: CEFEPIME 2 GM in NA CHLORIDE 0.9% 100 ML IV SCH ×2 (15:00→21:00)
[2022-12-05 15:21] VITALS: BMI 27.9
[2022-12-05] MEDS: ENOXAPARIN 40 MG/0.4 ML SQ SCH (18:01)
[2022-12-05] MEDS: VANCOMYCIN 1 GM in NA CHLORIDE 0.9% 250 ML IVPB SCH (20:37)
[2022-12-05] MEDS: AMLODIPINE 5 MG TAB PO SCH (20:38)
[2022-12-05] MEDS: PROPRANOLOL HCL 10 MG TAB PO SCH (20:38)
[2022-12-05] MEDS: ATORVASTATIN 40 MG TAB PO SCH (20:38)
[2022-12-05] MEDS: CEFEPIME 1 GM in NA CHLORIDE 0.9% 100 ML IV SCH (20:39)
[2022-12-06] MEDS ORDERED: VANCOMYCIN 1 GM in NA CHLORIDE 0.9% 250 ML IVPB SCH (02:00)
[2022-12-06] MEDS: NA CHLORIDE 0.9% 1,000 ML IV SCH ×4 (02:37→21:59)
[2022-12-06 05:52] LABS: Absolute Lymphocytes (CBC) 0.7 K/uL (0.7-4.9); Hematocrit 31.4 % (39.6-49.0); Lymphocytes % 9.8 % (15.3-44.8); MCV 78.1 fL (80-100); MPV 7.8 fL (7.6-11.3); RBC Red Blood Cell Count 4.02 M/uL (4.33-5.43)
[2022-12-06 06:10] LABS: Potassium 3.1 mEq/L (3.5-5.1)
[2022-12-06] MEDS: PANTOPRAZOLE 40MG TABLET PO SCH (06:15)
[2022-12-06] MEDS ORDERED: lisinopriL 20 MG TAB PO SCH (09:00)
[2022-12-06] MEDS ORDERED: CLOPIDOGREL 75 MG TABLET PO SCH (09:00)
[2022-12-06] MEDS: AMLODIPINE 5 MG TAB PO SCH ×2 (09:16→21:21)
[2022-12-06] MEDS: CEFEPIME 1 GM in NA CHLORIDE 0.9% 100 ML IV SCH ×2 (09:17→21:21)
[2022-12-06] MEDS: VANCOMYCIN 1 GM in NA CHLORIDE 0.9% 250 ML IVPB SCH ×2 (09:17→21:22)
[2022-12-06] MEDS: PROPRANOLOL HCL 10 MG TAB PO SCH ×2 (09:17→21:20)
[2022-12-06] MEDS: ENOXAPARIN 40 MG/0.4 ML SQ SCH (17:04)
[2022-12-06] MEDS: ATORVASTATIN 40 MG TAB PO SCH (21:20)
--- NOTE | 2022-12-06 22:55 | HP ---
Date of Admission: 12/06/2022 Chief Complaint: Fever, chills, and redness of right leg. History Of Present Illness: This is a 67-year-old very pleasant male patient who has lymphedema of right leg with multiple prior episodes of right leg cellulitis, came into emergency room with complaints of fever, chills, and redness of the right leg that started day prior to admission to the hospital. He came into ER, was evaluated and admitted to the hospital with cellulitis of this right leg. Denies any shortness of breath, chest pain. No vomiting. No diarrhea. No open wound on the leg. His last episode of cellulitis of right leg was September of this year. Medications: List reviewed. Review of Systems: Constitutional: As mentioned above. Dermatology: As mentioned above. All other systems reviewed and negative. Allergies: TO PENICILLIN DETAILS UNKNOWN; DOXYCYCLINE CAUSING CHEST PAIN; BENADRYL CAUSING RASH AND HIVES. Past Medical History: Significant for lymphedema of right leg and recurrent cellulitis of right leg, allergic rhinitis, obstructive sleep apnea, hypertension, hyperlipidemia, coronary artery disease, gastroesophageal reflux disease, diverticulosis, benign prostatic hypertrophy, anxiety. Past Surgical History: Cervical spine surgery, knee surgery, multiple leg surgeries during childhood due to polio, and coronary artery angioplasty with stent placement September 2021. Family History: Father had coronary artery disease. Mother has hypertension, hyperlipidemia, and osteoarthritis. Social History: Negative for smoking and alcohol use. Physical Examination: Vital Signs: This morning, temperature 98.7, pulse 61, respiratory rate 18, blood pressure 119/77, oxygen saturation 95%. Height 5 feet. Weight 145 pounds. Maximum temperature in last 24 hours was 102.8 degrees Fahrenheit. General: Awake, alert, oriented, not in distress. HEENT: Head atraumatic, normocephalic. Conjunctivae nonerythematous. Sclerae white. Mouth, no thrush or edema noted. Ears/Nose, no mass, lesion, discharge noted. Neck: Supple. No JVD, lymph nodes, bruit, thyromegaly noted. Lungs: Bilateral good equal air entry. Clear to auscultation. No rhonchi. No rales. Heart: Normal heart sounds, no murmur or gallop. Abdomen: Soft, bowel sounds normal. No guarding, rigidity, tenderness, mass, hepatosplenomegaly, distention, or bruit noted. Extremities: No leg edema. No calf tenderness. Skin: Right lower extremity skin shows redness and warm to touch area involving thigh and diffuse area between knee and foot on the right lower extremity. No open wound. There is trace edema of the right lower extremity. Lymphatics: No lymph node enlargement in neck, supraclavicular, infraclavicular region. Neuro: No focal neurological deficit. Chest: Unremarkable. External Genitalia: Deferred. Rectal: Deferred. Laboratory Data: Yesterday; white count 12.5, hemoglobin 11.4, platelets 289. This morning, white count 7.4, hemoglobin 10.3, platelets 260. Yesterday; sodium 139, potassium 3.5, chloride 109, bicarb 27, BUN 16, creatinine 0.74, and glucose 113. Today; sodium 140, potassium 3.1, chloride 112, bicarb 24, BUN 14, creatinine 0.48, glucose 89. Impression: 1. Cellulitis, right leg. 2. Hypokalemia. 3. Anemia, unspecified. 4. Lymphedema, right leg. 5. Coronary artery disease. 6. Hypertension. 7. Hyperlipidemia. Plan: Admit patient to hospital for further evaluation and management of this problem. The patient is appropriate for inpatient and is expected to spend 2 midnights in hospital. We will start the patient on IV antibiotics, which are cefepime and vancomycin. Follow up on culture results. DVT prophylaxis will be given using Lovenox per order for hypertension. We will continue his antihypertensive medication. Monitor blood pressure and adjust medication as necessary. Hyperlipidemia, continue his statin therapy per order. Coronary artery disease problem is stable. We will continue clopidogrel per order. Replace potassium per order. Anemia will not require any intervention except monitoring. I will see him tomorrow for followup. 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 Says first, due to financial reason he will need to continue to work and second thing he says he likes doing what he is doing and he is just simply not going to quit, so recurrent cellulitis is going to be expected for him on a frequent basis. I will see him tomorrow for followup. JG/KRISTY Voice ID: [id number] [id number]
[2022-12-06 23:47] VITALS: O2SAT 96
[2022-12-07] MEDS: NA CHLORIDE 0.9% 1,000 ML IV SCH ×2 (04:43→05:44)
[2022-12-07] MEDS: PANTOPRAZOLE 40MG TABLET PO SCH (06:08)
[2022-12-07 06:27] LABS: Magnesium 1.9 mg/dL (1.6-2.4); Potassium 3.2 mEq/L (3.5-5.1)
[2022-12-07] MEDS ORDERED: POTASSIUM CL SA 10 MEQ TAB PO ONE ×2 (07:30→09:00)
[2022-12-07 07:41] VITALS: BP 128/72; TEMP 98.1
--- NOTE | 2022-12-07 21:16 | DS ---
Date of Discharge: 12/07/2022 Disposition: Discharged to go home. Physical Examination: HEENT: Unremarkable. Lungs: Clear to auscultation. Heart: Sounds normal. Abdomen: Soft. Bowel sounds normal. No guarding, rigidity, tenderness, distention. Extremities: Trace edema of right lower extremity and redness from right thigh and right lower leg h as almost completely resolved. Laboratory Data: Upon admission, sodium 139, potassium 3.5, chloride 109, bicarb 27, BUN 16, creatin ine 0.74, glucose 113. Yesterday, potassium was 3.1. This morning, sodium 141, potassium 3.2, chlor helen 115, bicarb 22, BUN 12, creatinine 0.57, glucose 108. Upon admission, white count was 12.5, hemo globin 11.4, platelets 289. Yesterday, white count 7.4, hemoglobin 10.3, platelets 360. Hospital Course: This is a 67-year-old very pleasant male patient who came into emergency room with right leg cellulitis. Please see dictated H and P for more information. After patient was evaluated in the emergency room, he was admitted to the hospital with cellulitis problem. IV vancomycin and c efepime were started. His home medications were continued. Overall, his condition improved signific antly with IV antibiotics. This morning when I saw him, he has remained afebrile for last 24 hours a nd his right leg appears significantly better compared to yesterday, so patient was discharged to go home in stable condition with following discharge medications and instructions. Final Diagnoses: 1.Cellulitis, right leg. 2.Hypokalemia. 3.Anemia, unspecified. 4.Lymphedema, right leg. 5.Coronary artery disease. 6.Hypertension. 7.Hyperlipidemia. Discharge Medications And Instructions: 1.Continue all prior home medications. 2.Take Levaquin 500 mg daily for 10 days and prescription was sent to [facility] in [place]. 3.Follow up at my office next week on Monday or Monday. JG/MODL Voice ID: [id number] Report ID: [id number]
== END 2022-12-07 08:23 | disposition home or self-care (01) | DRG 603 ==
LOC: ER 09:23 → ERHOLD 10:56 → 4TH 12:55
PROVIDERS: ADMIT Internal Medicine; ATTEND Internal Medicine
DX: L03.115 Cellulitis of right lower limb (principal); I10 Essential (primary) hypertension; J30.9 Allergic rhinitis, unspecified; E87.6 Hypokalemia; D64.9 Anemia, unspecified; I89.0 Lymphedema, not elsewhere classified; E78.00 Pure hypercholesterolemia, unspecified; K21.9 Gastro-esophageal reflux disease without esophagitis; I25.10 Atherosclerotic heart disease of native coronary artery without angina pectoris; Z88.5 Allergy status to narcotic agent; Z88.0 Allergy status to penicillin; Z95.5 Presence of coronary angioplasty implant and graft
CPT/HCPCS: 36415; 80048; 83735; 85025; 87040; 96374; 96375; 99285; J0692; J1650; J7030; J7050

== ENCOUNTER 2023-01-23 19:43 | Emergency (ER) | payer OTHER ==
--- OUTSIDE RECORDS SUMMARY | 2023-01-23 19:46 | XMS REPORT | Continuity of Care Document ---
:1955 Author Organization [facility] t Address [address] [place] [address] [place] [id number] Care Team Providers Name Role Phone Quentin Paz Primary Care Physician CALI MAYA Attending Clinician Unavailable Nurse, Adc Pob Immunization Attending Clinician Unavailable Cali Maya DO Attending Clinician Lab, Adc Fam Pob I Attending Clinician Unavailable LASHONDA KIRK Attending Clinician Unavailable Doctor Unassigned, [place] Attending Clinician Unavailable JUANA AGUIRRE M.D. Attending Clinician Unavailable JAMAAL WU P.A. Attending Clinician Unavailable Payers Payer Name Policy Type Policy Number Effective Date Expiration Date S aakashce MEDICARE PART A [id number] 1979 \T\ B 00:00:00 Problems Condition Condition Condition Status Onset Resolution Last Treating Co mments Source Name Details Category Date Date Treatment Clinician Date Closed Closed Problem Active [place] fracture fracture [id number] Ph ysici of tibial of tibial ans plateau plateau No known No known Disease Unive rs active active ity of problems problems [facility] Allergies, Adverse Reactions, Alerts Allergy Allergy Status Severity Reaction(s) Onset Inactive Treating Comm ents Source Name Type Date Date Clinician Penicill Propensi Active Unknown - Uni vers ins ty to See comments 6-18 ity of adverse 00:00: [place] reaction 00 Medical s Branch DIPHENHY DRUG Active Unknown-Cmnt Un karin DRAMINE INGREDI 6-18 ity of HCL 00:00: [place] [id number] Medical Branch CODEINE DRUG Active Unknown-Cmnt Uni [...] Comments Source Alcohol intake 2018-12-27 2018-12-27 Ex-drinker [facility] 00:00:00 00:00:00 (finding) [facility] Tobacco use and 2018-12-25 2018-12-25 Never used Universit y of exposure 00:00:00 00:00:00 [facility] Sex Assigned At [address] [facility] 00:00:00 00:00:00 [facility] Center Smoking Status Start Date Stop Date Source Never smoker [facility] Medications Ordered Filled Start Stop Current Ordering Indication Dosage Frequency Signature Comments Components Source Medication Medication Date Date Medication? Clinician (SIG) Name Name amLODIPine Yes 5mg Take 5 mg Un karin 5 mg tablet 6-19 by mouth ity of 11:02: daily. [place] [address] Indication Medical s: at Branch bedtime lisinopril Yes 20mg Take 20 mg U nivers 20 mg 6-19 by mouth ity of tablet 11:02: daily. [place] [address] Indication Medical s: q am Branch atorvastati Yes 10mg Take 10 mg Univers n 10 mg 6-19 by mouth ity of tablet 11:02: at [place] [address] bedtime. Medical Branch LANSOPRAZOL Yes Take by Uni vers E ORAL 6-19 mouth. ity of 11:02: [address] lansoprazol Yes 30mg Take 30 mg Univers e 30 mg 6-19 by mouth ity of capsule 11:02: daily. [address] aspirin/hans Yes 1{packa Take 1 U [...] Completed Unive rsity of MODERNA BOOSTER 00:00:00 [place] Med ical VACCINE Branch Procedures Procedure Date / Time Performed Performing Clinician [facility] e SARS-COV-2 COVID-19 2021-05-21 20:04:00 Doctor Unassigned, No [facility] [place] VACCINE Name Medical Branch BOOSTER,0.25ML,IM (MODERNA) [U] XRAY KNEE 1 OR 2 2018-05-09 00:00:00 [facility] VWS LEFT [id number] [U] XRAY FOOT MIN 3 2018-04-05 00:00:00 [facility] V[place] [id number] [U] XRAY KNEE 1 OR 2 2018-03-30 00:00:00 [facility] V[place] [id number] Encounters Start End Encounter Admission Attending Care Care Encounter Source Date/Time Date/Time Type Type Clinicians Facility Department ID 2021-05-21 2021-05-21 Outpatient R KYLE [facility] [id number] Univers 13:10:00 13:10:00 CALI bernabe [facility] 2021-05-21 2021-05-21 Imm/Inj Nurse, [facility] Pob Immunization [facility] ..[id number] Univers 12:48:22 12:48:36 Visit Cali Maya [id number] ity [id number] [id number] Ca dical [address] 2020-08-14 2020-08-14 Laboratory Lab, [facility] [id number] 13:24:17 13:44:17 Only Fam Pob I Health [id number] [place] [id number] Rayna [id number] nal [address] 2020-08-14 2020-08-14 Outpatient R YELENA, [facility] [id number] [facility] 13:40:00 13:40:00 LASHONDA bernabe [facility] 2020-08-14 2020-08-14 Letter Doctor JAGDEEP [id number] 00:00:00 00:00:00 (Out) Unassigned, [place] [id number] [place] [facility] [id number] 2018-05-17 2018-05-17 Appointmen [facility] [id number] [place] 11:15:00 11:15:00 t; JUANA AGUIRRE Physi ci JOSHUA, M.D. ans M.D. 2018-04-05 2018-04-05 Appointmen [facility]IN [facility] [id number] [place] 11:30:00 11:30:00 t; JAMAAL WU Phy sici AUDREY PMaykel thao P.Kalie 2018-03-08 2018-03-08 Appointmen [facility] [id number] [place] 11:30:00 11:30:00 t; JUANA AGUIRRE Physi ci JOSHUA, M.D. ans M.D. Results Test Description Test Time Test Comments Results Result Comments Source SARS-COV2/RT-PCR ([facility]) 2019-11-05 15:45:00 Test Item Value Reference Range Interpretation Comme nts SARS-COV2/RT-PCR (test code = 2890516) Not Detected Not Detected, N egative SARS-COV-2 PERFORMING LAB (test [facility] = [facility] [id number] Negative results do not preclude SARS-CoV-2 infection [...] of the Act.Fact Sheet for Healthcare Pro viders:https://www.[employer]/Documents/Xpert%20Xpress%20SARS%20CoV-2/Fact%20Sh eets/3023802%81MFXQ-KCZ-4%20HEALTHCARE%20PROVIDERS%20FACT%20SHEET.pdfFact Sheet for Healthcare Patients:https://www.[employer]/Documents/Xpert%20Xpress%20SARS%20CoV-2/Fact%20Sheets/3023801%20SARS-COV -2%20PATIENT%20FACT%20SHEET.pdfPerforming Laboratory:[facility] [place] [address][U] XRAY KNEE 1 OR 2 VWS LEFT [id number] 2018-03-08 11:42:00Images acquired, not reported on this accession number.[facility]
[2023-01-23] MEDS ORDERED: NA CHLORIDE 0.9% 1,000 ML ONE (20:33)
--- NOTE | 2023-01-23 21:25 | RAD REPORT ---
EXAM DESCRIPTION: [place] Single View01/23/2023 9:12 pm CLINICAL HISTORY: Fever COMPARISON: 2021 FINDINGS: Haziness medial right heart border represents the spine secondary to scoliosis. Lungs appear clear of acute infiltrate. Heart is normal size. Small to moderate hiatal hernia IMPRESSION: No acute abnormalities displayed
--- NOTE | 2023-01-23 21:27 | RAD REPORT ---
EX[facility] DES[facility]23/2023 9:12 pm CLINICAL HISTORY: Right leg pain COMPARISON: September 2022 FINDINGS: Right common femoral, superficial femoral, greater saphenous, popliteal and right posterio r tibial veins are compressible and demonstrate augmentation. Doppler demonstrates good flow. Grayscale, color and spectral analysis performed on all vessels IMPRESSION: No evidence of deep venous thrombosis involving the right lower extremity.
[2023-01-23 21:39] LABS: Absolute Lymphocytes (CBC) 0.7 K/uL (0.7-4.9); Hematocrit 37.7 % (39.6-49.0); Lymphocytes % 5.6 % (15.3-44.8); MCV 76.5 fL (80-100); MPV 8.1 fL (7.6-11.3); RBC Red Blood Cell Count 4.93 M/uL (4.33-5.43)
[2023-01-23 21:44] LABS: Specific Gravity > 1.030 (1.005-1.030); Urine Bacteria None Seen /HPF (<20); Urine Bilirubin NEGATIVE (Negative); Urine Blood Trace (Negative); Urine Clarity Clear (Clear); Urine Color Yellow (Yellow); Urine Glucose NEGATIVE (Negative); Urine Mucus Slight /HPF (None Seen); Urine Protein TRACE (Negative); Urine Urobilinogen 1+ (Normal); Urine pH 5.5 (5.0-7.0)
[2023-01-23 21:51] LABS: Protime INR 1.11
[2023-01-23 22:02] LABS: Albumin 3.6 g/dL (3.4-5.0); Bilirubin Total 0.9 mg/dL (0.2-1.0); Potassium 3.7 mEq/L (3.5-5.1); Protein, Total 7.5 g/dL (6.4-8.2)
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
[2023-01-23] MEDS ORDERED: DOXYCYCLINE HYCLATE 100MG INJ ONE (22:35)
[2023-01-23] MEDS ORDERED: NA CHLORIDE 0.9% 100 ML ONE (22:36)
[2023-01-24 02:08] VITALS: TEMP 99
[2023-01-24 02:15] VITALS: BP 110/72; O2SAT 100
== END 2023-01-23 23:58 | disposition home or self-care (01) ==
LOC: ER 19:43
DX: L03.115 Cellulitis of right lower limb (principal); I10 Essential (primary) hypertension; Z88.0 Allergy status to penicillin; Z88.5 Allergy status to narcotic agent; Z88.8 Allergy status to other drugs, medicaments and biological substances
CPT/HCPCS: 87040 ×2; 85025; 81001; 36415; 85610; 83605; 80053; 87804 ×2; 71045; 93971; 99284; J7030

== ENCOUNTER 2023-06-21 16:32 | Emergency (ER) | payer OTHER ==
--- NOTE | 2023-06-21 17:25 | RAD REPORT ---
EXAM DESCRIPTION: CT - Head C Spine Cap Wo Con - 06/21/2023 5:00 pm CLINICAL HISTORY: Trauma, head and neck injury. Chest, abdomen and pelvis pain. PAIN COMPARISON: No comparisons TECHNIQUE: CT head without contrast. CT cervical spine without contrast with coronal and sagittal reformatted images. CT chest, abdomen and pelvis without contrast with coronal and sagittal reformatted images of the [facility] ne. All CT scans are performed using dose optimization technique as appropriate and may include automated exposure control or mA/KV adjustment according to patient size. FINDINGS: CT HEAD WITHOUT CONTRAST: No intracranial hemorrhage, hydrocephalus or extra-axial fluid collection. Mild brain atrophy. No are as of brain edema or midline shift. The paranasal sinuses and mastoids are clear. The calvarium is intact. CT CERVICAL SPINE WITHOUT CONTRAST: No fracture or subluxation. Postsurgical fusion spanning C3-6. The prevertebral soft tissues are norm al in thickness. CT CHEST, ABDOMEN, PELVIS WITHOUT CONTRAST: NOTE: Lack of contrast is a significant limitation in the assessment of trauma related findings. Spec ifically, solid organ, vascular and bowel evaluation is significantly limited. The lungs are clear.Large hiatal hernia.No pneumothorax or pericardial/pleural fluid. No evidence of intra-abdominal visceral injury, free fluid or free air is seen within the above detai led limitations. Significant diverticulosis coli of the sigmoid colon. No fractures. There is a quite severe thoracolumbar S-shaped scoliosis. IMPRESSION: Negative for acute traumatic findings within the above detailed limitations.
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
[2023-06-21 21:20] VITALS: BP 148/82; TEMP 98.1; O2SAT 100
== END 2023-06-21 18:23 | disposition home or self-care (01) ==
LOC: ER 16:32
DX: S09.90XA Unspecified injury of head, initial encounter (principal); Z88.0 Allergy status to penicillin; Z88.5 Allergy status to narcotic agent; Z88.8 Allergy status to other drugs, medicaments and biological substances
CPT/HCPCS: 70450; 71250; 72125

== ENCOUNTER 2024-01-11 07:09 | Emergency (ER) | payer OTHER ==
[2024-01-11 08:24] LABS: Absolute Basophils 0.1 K/uL (0-0.5); Absolute Eosinophils 0.1 K/uL (0-0.5); Absolute Lymphocytes (CBC) 1.3 K/uL (0.7-4.9); Absolute Monocytes 0.7 K/uL (0.1-1.3); Absolute Neutrophil 5.2 K/uL (1.8-8.0); Basophils % 1.3 % (0-1.3); Eosinophils % 1.4 % (0-4.4); Hematocrit 37.8 % (39.6-49.0); Hemoglobin 12.3 g/dL (13.6-17.9); Lymphocytes % 17.7 % (15.3-44.8); MCH 24.3 pg (27.0-35.0); MCHC 32.6 g/dL (32.0-36.0); MCV 74.3 fL (80-100); MPV 7.6 fL (7.6-11.3); Monocytes % 8.9 % (3.3-12.3); Neutrophils % 70.7 % (41.7-73.7); Nucleated Red Blood Cells % 0.2 % (0-0); Platelets 390 thou/uL (152-406); RBC Red Blood Cell Count 5.09 M/uL (4.33-5.43); Red Cell Distribution Width 17.7 % (12.1-15.2)
--- NOTE | 2024-01-11 08:28 | RAD REPORT ---
EXAM DESCRIPTION: RAD - Chest Single View - 01/11/2024 8:18 am CLINICAL HISTORY: CHEST PAIN COMPARISON: Chest Single View dated 01/23/2023; Chest Single View dated 02/06/2022; Chest Single View dated 09/28/2021; Chest Single View dated 09/15/2021; Head C Spine Cap Wo Con dated 06/21/2023 FINDINGS: Lines: None. Lungs: Opacities in the medial right lung base are chronic and may represent some vascular crowding. No definite acute process . Pleural: No significant pleural effusions or pneumothorax. Cardiac: The heart size is within normal limits. Mediastinum: Within normal limits. Bones: No acute fractures. Other: None IMPRESSION: No acute cardiopulmonary disease. No significant change from prior.
[2024-01-11 08:45] LABS: Albumin 3.5 g/dL (3.4-5.0); Anion Gap 6.5 mEq/L (5.0-15.0); Bilirubin Direct 0.2 mg/dL (0-0.2); Bilirubin Indirect, Calculated 0.6 mg/dL (0.2-0.8); Bilirubin Total 0.8 mg/dL (0.2-1.0); Globulin 3.6 g/dL (2.3-3.5); Potassium 3.5 mEq/L (3.5-5.1); Protein, Total 7.1 g/dL (6.4-8.2); Troponin High Sensitivity 5.6 pg/mL (<58.9)
[2024-01-11 08:46] LABS: PT Prothrombin Time 11.3 SECONDS (9.4-12.5); Protime INR 1.03
--- NOTE | 2024-01-11 09:14 | RAD REPORT ---
EXAM DESCRIPTION: CTAngio Aorta For Dissection - 01/11/2024 9:01 am CLINICAL HISTORY: chest pain, HTN, radiates to back and arms COMPARISON: No comparisons TECHNIQUE: CTA of the chest, abdomen, and pelvis was performed with IV contrast. All CT scans are performed using dose optimization technique as appropriate and may include automated exposure control or mA/KV adjustment according to patient size. FINDINGS: Thorax: Chest Wall: No abnormal mass Lungs: No acute abnormality. Pleura: No effusions or pneumothorax. Darline/Mediastinum: No lymphadenopathy. Moderate hiatal hernia. Aorta/Pulmonary Arteries: Unremarkable Heart: Normal size. Multi-vessel coronary disease. Abdomen/Pelvis: Liver: No acute abnormality or suspicious lesions. Biliary: No biliary ductal dilatation. Stomach: No significant focal abnormality. Duodenum: No significant focal abnormality. Pancreas: No significant abnormality. Spleen: No significant abnormality. Adrenal: No suspicious lesions. Kidney/ureter: No hydronephrosis. 5 mm stone in the distal right ureter, proximal to the UVJ. Retroperitoneum: No retroperitoneal adenopathy. Vascular: No aneurysm. Bowel: Diverticulosis without diverticulitis. Peritoneum: No ascites or free air. Tiny fat containing umbilical hernia. Bladder: Circumferential bladder wall thickening. Reproductive: No adnexal masses. Bones: No acute fracture. Thoracolumbar curvature. Other: n/a IMPRESSION: No aortic aneurysm, aortic dissection, or pulmonary embolus identified. Nonobstructing 5 mm stone in the distal right ureter. Moderate hiatal hernia.
[2024-01-11] MEDS ORDERED: TAMSULOSIN 0.4 MG SR CAP ONE (09:48)
[2024-01-11] MEDS ORDERED: KETOROLAC 30 MG/ML INJ ONE (09:48)
[2024-01-11] MEDS ORDERED: MAGNESIUM SULFATE 1 gm IVPB 1 GM/100 ML BAG IV ONE (09:48)
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
[2024-01-11 11:13] VITALS: BP 151/81; TEMP 98.8; O2SAT 99
--- NOTE | 2024-01-14 10:34 | EKG ---
Test Date: 2024-01-11 Test Time: 07:16:30 Partner Cco: [place] MEASUREMENT RESULTS: Intervals: Rate: 65 KS: 170 QRSD: 98 QT: 392 QTc: 407 [place]: P: 63 KS: 170 QRS: 27 T: 38 INTERPRETIVE STATEMENTS: Normal sinus rhythm Cannot rule out Anterior infarct, age undetermined Abnormal ECG Compared to ECG 01/25/2023 21:40:14 Myocardial infarct finding now present Electronically Signed On 01-14-24 10:32:13 CDT by Nic Cameron
== END 2024-01-11 11:01 | disposition home or self-care (01) ==
LOC: ER 07:09
DX: N20.1 Calculus of ureter (principal)
CPT/HCPCS: 93005; 85025; 80048; 36415; 85610; 80076; 84484; 83880; 71275; 74175; 71045; 96374; 99285; Q9967; J3475